=== PATIENT | female | born 1990 | race Caucasian/White ===

== ENCOUNTER 2018-10-07 23:59 | Emergency (ER) | payer OTHER ==
[2018-10-08 01:20] LABS: BILIRUBIN,URINE NEGATIVE (NEGATIVE); GLUCOSE, URINE (UA) NEGATIVE (NEGATIVE); KETONES,URINE (UA) NEGATIVE (NEGATIVE); LEUKOCYTE ESTERASE, URINE TRACE (NEGATIVE); NITRITE,URINE NEGATIVE (NEGATIVE); OCCULT BLOOD,URINE SMALL (NEGATIVE); PH,URINE 6.5 PH (5.0-7.5); PROTEIN,URINE NEGATIVE (NEGATIVE); UROBILINOGEN,URINE 0.2 (NORMAL) E.U./dL (NORMAL)
[2018-10-08 01:22] LABS: CLARITY,URINE HAZY (CLEAR); HCG UR QUAL POSITIVE
--- NOTE | 2018-10-08 01:23 | ED Physician Documentation ---
PD HPI ABD PAIN - Stated complaint Stated Complaint: PREG,CRAMPING AND SPOTTING - Chief complaint Chief Complaint: Abd Pain - History obtained from History obtained from: Patient - History of Present Illness Timing - onset: Enter time (20:00), Today Timing - details: Abrupt onset Pain level now: 8 Quality: Cramping Location: Suprapubic Radiation: Lower back, Left flank, Right flank Improved by: Other (nothing) Worsened by: Other (no exacerbating factors) Similar symptoms before: Has not had sx before Recently seen: Not recently seen - Additional information Additional information: patient is approximately 7 weeks , c/o sudden onset pelvic/abdominal cramping 8 PM tonight; pain radiates around both flanks to the back and associated with vaginal spotting. patient says she is rh negative and the father (who is in the room with patient) is rh positive (he confirms this) Review of Systems Constitutional: denies: Fever Cardiac: reports: Reviewed and negative Respiratory: reports: Reviewed and negative GI: reports: Abdominal Pain. denies: Nausea, Vomiting, Constipation, Diarrhea : reports: Vaginal bleeding (spotting), Now EGA (7 weeks). denies: Dysuria, Frequency Musculoskeletal: reports: Back pain PD PAST MEDICAL HISTORY - Past Medical History Past Medical History: No - Allergies Allergies/Adverse Reactions: Allergies Allergy/AdvReac Type Severity Reaction Status Date / Time cefaclor [From Ceclor] Allergy Unknown Verified 10/08/18 00:11 metoclopramide [From Reglan] Allergy Unknown Verified 10/08/18 00:11 amoxicillin [From Augmentin] AdvReac Hives Verified 10/08/18 00:11 clavulanic acid AdvReac Hives Verified 10/08/18 00:11 [From Augmentin] ketorolac [From Toradol] AdvReac Headache Verified 10/08/18 00:11 Sulfa (Sulfonamide AdvReac Nausea Verified 10/08/18 00:11 Antibiotics) tramadol AdvReac Headache Verified 10/08/18 00:11 - Social History Does the pt smoke?: No Smoking Status: Never smoker PD ED PE NORMAL - Vitals Vital signs reviewed: Yes - General General: Alert and oriented X 3, Well developed/nourished, Other (appears uncomfortable) - Cardiac Cardiac: RRR, No murmur - Respiratory Respiratory: No respiratory distress, Clear bilaterally - Abdomen Abdomen: Normal bowel sounds, Soft, Non tender, Non distended - Back Back: No CVA TTP - Derm Derm: Normal color, Warm and dry - Extremities Extremities: No edema Results - Vitals Vitals: Vital Signs - 24 hr 10/08/18 06:03 Heart Rate 98 Respiratory 18 Rate Blood Pressure 135/76 H O2 Saturation 100 Oxygen O2 Source Room air - Labs Labs: Laboratory Tests 10/08/18 10/08/18 10/08/18 01:02 02:10 02:10 WBC 13.3 H RBC 4.65 Hgb 14.0 Hct 44.0 MCV 94.7 MCH 30.2 MCHC 31.9 L RDW 15.8 H Plt Count 402 MPV 8.5 Neut # (Auto) 9.3 H Lymph # (Auto) 3.3 [place] # (Auto) 0.7 Eos # (Auto) 0.0 Baso # (Auto) 0.1 Absolute Nucleated RBC 0.01 Nucleated RBC % 0.0 Sodium 137 Potassium 3.5 Chloride 103 Carbon Dioxide 24 Anion Gap 10.0 BUN 9 Creatinine 0.6 Estimated GFR (MDRD) 120 Glucose 100 Calcium 8.8 Total Bilirubin 0.7 AST 32 ALT 34 Alkaline Phosphatase 72 Total Protein 7.5 Albumin 4.0 Globulin 3.5 Albumin/Globulin Ratio 1.1 Lipase 34 HCG, Quant Urine Color YELLOW Urine Clarity HAZY Urine pH 6.5 Ur Specific [place] 1.010 Urine Protein NEGATIVE Urine Glucose (UA) NEGATIVE Urine Ketones NEGATIVE Urine Occult Blood SMALL H Urine Nitrite NEGATIVE Urine Bilirubin NEGATIVE Urine Urobilinogen 0.2 (NORMAL) Ur Leukocyte Esterase TRACE H Urine RBC 0-5 Urine WBC 0-3 Ur Squamous Epith Cells MOD Squamous H Urine Bacteria Few Ur Microscopic Review INDICATED Urine Culture Comments NOT INDICATED Urine HCG, Qual POSITIVE 10/08/18 02:10 WBC RBC Hgb Hct MCV MCH MCHC RDW Plt Count MPV Neut # (Auto) Lymph # (Auto) [place] # (Auto) Eos # (Auto) Baso # (Auto) Absolute Nucleated RBC Nucleated RBC % Sodium Potassium Chloride Carbon Dioxide Anion Gap BUN Creatinine Estimated GFR (MDRD) Glucose Calcium Total Bilirubin AST ALT Alkaline Phosphatase Total Protein Albumin Globulin Albumin/Globulin Ratio Lipase HCG, Quant 97339.00 Urine Color Urine Clarity Urine pH Ur Specific [place] Urine Protein Urine Glucose (UA) Urine Ketones Urine Occult Blood Urine Nitrite Urine Bilirubin Urine Urobilinogen Ur Leukocyte Esterase Urine RBC Urine WBC Ur Squamous Epith Cells Urine Bacteria Ur Microscopic Review Urine Culture Comments Urine HCG, Qual - Rads (name of study) pelvic/TV US Radiology: Prelim report reviewed, See rad report PD MEDICAL DECISION MAKING - ED course Complexity details: reviewed results, re-evaluated patient, considered differential, d/w patient Departure - Departure Disposition: 01 Home, Self Care Clinical Impression: Threatened Condition: Good Instructions: ED Miscarriage Poss Follow-Up: Temitope Hopkins DO [Primary Care Provider] - Discharge Date/Time: 10/08/18 06:04
[2018-10-08 01:26] LABS: BACTERIA,URINE Few /HPF (None Seen); RBC,URINE 0-5 /HPF (0-5); SQUAMOUS EPITHELIAL CELL,UR MOD Squamous (<= Few)
[2018-10-08] MEDS ORDERED: RHO(D) IMMUNE GLOBULIN 300 MCG SYRINGE IM STA (01:43)
[2018-10-08] MEDS ORDERED: RHO(D) IMMUNE GLOBULIN 300 MCG SYRINGE ONE (01:59)
[2018-10-08 02:15] LABS: BASOPHILS # (AUTO) 0.1 10^3/uL (0.0-0.1); BASOPHILS % (AUTO) 0.9 %; EOSINOPHILS % (AUTO) 0.2 %; LYMPHOCYTES # (AUTO) 3.3 10^3/uL (1.5-3.5); LYMPHOCYTES % (AUTO) 24.5 %; MEAN CORPUSCULAR HEMOGLOBIN 30.2 pg (27.0-31.0); MEAN CORPUSCULAR HGB CONC 31.9 g/dL (32.0-36.0); MEAN CORPUSCULAR VOLUME 94.7 fL (81.0-99.0); MEAN PLATELET VOLUME 8.5 fL (7.9-10.8); MONOCYTES # (AUTO) 0.7 10^3/uL (0.0-1.0); MONOCYTES % (AUTO) 4.9 %; NEUTROPHILS # (AUTO) 9.3 10^3/uL (1.5-6.6); NEUTROPHILS % (AUTO) 69.5 %; PLT - PLATELET COUNT 402 10^3/uL (130-450); RED BLOOD COUNT 4.65 10^6/uL (4.20-5.40); RED CELL DISTRIBUTION WIDTH 15.8 % (12.0-15.0); WHITE BLOOD COUNT 13.3 x10^3/uL (4.8-10.8)
[2018-10-08 02:29] LABS: ALBUMIN/GLOBULIN RATIO 1.1 (1.0-2.2); BILIRUBIN,TOTAL 0.7 mg/dL (0.2-1.0); CALCIUM 8.8 mg/dL (8.5-10.3); CREATININE 0.6 mg/dL (0.4-1.0); TOTAL PROTEIN 7.5 g/dL (6.7-8.2)
--- NOTE | 2018-10-08 03:53 | Ultrasound Report ---
Reason: , spotting and cramping Procedure Date: 10/08/2018 Accession Number: [id number] / [id number] Procedure: US - OB First Trimester CPT Code: FULL RESULT: EXAM: FIRST TRIMESTER OBSTETRIC ULTRASOUND (Less than 11 weeks) EXAM DATE: 10/08/2018 03:20 AM. CLINICAL HISTORY: , spotting and cramping. COMPARISONS: None. TECHNIQUE: Transabdominal and transvaginal ultrasound examination with static image documentation. FINDINGS: LMP: 08/22/2018. Estimated gestational age: 6 weeks 5 days. Estimated due date: 05/29/2019. Gestational Sac: Single intrauterine. Normal configuration of the gestational sac. Mean gestational sac diameter: 9.8 mm = 5 weeks 0 days. Embryo: CRL (crown-rump length) 2.4 mm = 5 weeks 2 days. Cardiac activity: 139 bpm. Yolk sac: 3.1 mm. Amniotic fluid: Not accurately assessed at this gestational age. Early placenta: Not visible at this gestational age. Other: No perigestational fluid collection demonstrated. MATERNAL STRUCTURES: Uterus: Normal position and configuration. Cervix: Closed. Right Ovary/Adnexa: Normal appearance measuring 3.5 x 1.8 x 1.6 cm. Left Ovary/Adnexa: Physiologic appearance of the left ovary measuring 3.1 x 2.8 x 2.5 cm. There is a 1.8 cm corpus luteum cyst. Normal blood flow. Free Fluid: Small amount of left adnexal free fluid, within physiologic limits. Other: None. IMPRESSION: 1. Single live intrauterine gestation measuring 5 weeks 6 days with a due date of 06/04/2019. RADIA
[2018-10-08] MEDS ORDERED: HYDROcod/ACET 5/325 Prepack 4 PO STA (05:45)
[2018-10-08 06:03] VITALS: BP 135/76
== END 2018-10-08 06:04 | disposition home or self-care (01) ==
LOC: ED 23:59
DX: O20.0 Threatened abortion (principal); Z3A.01 Less than 8 weeks gestation of pregnancy
CPT/HCPCS: 36415; 76801; 76817; 80053; 81001; 81003; 81025; 83690; 84702; 85025; 87086; 96372; 99283

== ENCOUNTER 2018-10-29 08:00 | Outpatient (CLI) | payer OTHER ==
[2018-10-29 18:21] LABS: MUDS CUTOFF CONCENTRATIONS CUTOFF CONC BELOW:
[2018-10-29 18:56] LABS: AMPHETAMINE SCREEN,URINE NEGATIVE (NEGATIVE); BENZODIAZEPINES SCREEN, URINE NEGATIVE (NEGATIVE); COCAINE SCREEN URINE NEGATIVE (NEGATIVE); METHADONE SCREEN, URINE NEGATIVE (NEGATIVE); METHAMPHETAMINES SCREEN, URINE NEGATIVE (NEGATIVE); OPIATE SCREEN, URINE NEGATIVE (NEGATIVE); OXYCODONE SCREEN, URINE NEGATIVE (NEGATIVE); PROPOXYPHENE SCREEN, URINE NEGATIVE (NEGATIVE); TRICYCLIC ANTIDEPRESSANT,URINE NEGATIVE (NEGATIVE)
== END 2018-10-29 23:59 | disposition home or self-care (01) ==
LOC: LAB.R 08:00
PROVIDERS: ATTEND Obstetrics & Gynecology
DX: Z36.9 Encounter for antenatal screening, unspecified (principal)
CPT/HCPCS: 80306

== ENCOUNTER 2018-10-29 08:00 | Outpatient (CLI) | payer OTHER ==
[2018-10-29 18:52] LABS: BASOPHILS % (AUTO) 0.3 %; EOSINOPHILS % (AUTO) 0.3 %; HGB - HEMOGLOBIN 13.4 g/dL (12.0-16.0); LYMPHOCYTES # (AUTO) 4.4 10^3/uL (1.5-3.5); LYMPHOCYTES % (AUTO) 36.4 %; MEAN CORPUSCULAR HEMOGLOBIN 30.4 pg (27.0-31.0); MEAN CORPUSCULAR HGB CONC 32.2 g/dL (32.0-36.0); MEAN CORPUSCULAR VOLUME 94.4 fL (81.0-99.0); MEAN PLATELET VOLUME 9.4 fL (7.9-10.8); MONOCYTES # (AUTO) 0.9 10^3/uL (0.0-1.0); MONOCYTES % (AUTO) 7.1 %; NEUTROPHILS # (AUTO) 6.8 10^3/uL (1.5-6.6); NEUTROPHILS % (AUTO) 55.9 %; PLT - PLATELET COUNT 401 10^3/uL (130-450); RED BLOOD COUNT 4.42 10^6/uL (4.20-5.40); RED CELL DISTRIBUTION WIDTH 14.7 % (12.0-15.0); WHITE BLOOD COUNT 12.1 x10^3/uL (4.8-10.8)
[2018-10-29 19:26] LABS: BILIRUBIN,URINE NEGATIVE (NEGATIVE); GLUCOSE, URINE (UA) NEGATIVE (NEGATIVE); KETONES,URINE (UA) NEGATIVE (NEGATIVE); LEUKOCYTE ESTERASE, URINE NEGATIVE (NEGATIVE); NITRITE,URINE NEGATIVE (NEGATIVE); OCCULT BLOOD,URINE LARGE (NEGATIVE); PH,URINE 5.5 PH (5.0-7.5); PROTEIN,URINE TRACE mg/dL (NEGATIVE); UROBILINOGEN,URINE 0.2 (NORMAL) E.U./dL (NORMAL)
[2018-10-29 19:43] LABS: BACTERIA,URINE Few /HPF (None Seen); CLARITY,URINE CLEAR (CLEAR); RBC,URINE 0-5 /HPF (0-5); SQUAMOUS EPITHELIAL CELL,UR MANY Squamous (<= Few)
[2018-10-30 15:47] LABS: HEPATITIS B SURFACE ANTIGEN NON-REACTIVE (NON-REACTIVE)
[2018-10-30 16:01] LABS: HEPATITIS C ANTIBODY NON-REACTIVE (NON-REACTIVE)
[2018-10-30 16:25] LABS: HIV AG/AB 4TH GEN NON-REACTIVE (NON-REACTIVE)
== END 2018-10-29 23:59 | disposition home or self-care (01) ==
LOC: LAB.N 08:00
PROVIDERS: ATTEND Obstetrics & Gynecology
DX: Z36.9 Encounter for antenatal screening, unspecified (principal)
CPT/HCPCS: 36415; 80306; 81001; 81599; 85025; 86592; 86762; 86803; 86850; 86870; 86900; 86901; 87086; 87340; 87389

== ENCOUNTER 2018-12-11 11:46 | Outpatient (CLI) | payer OTHER | END 2018-12-11 11:47 | disposition home or self-care (01) | LOC: LAB 11:46 | PROVIDERS: ATTEND Obstetrics & Gynecology | DX: Z36.89 Encounter for other specified antenatal screening (principal); Z3A.13 13 weeks gestation of pregnancy | CPT/HCPCS: 36415; 81599; 82105; 82677; 82950; 84702; 86336 ==

== ENCOUNTER 2018-12-21 17:29 | Emergency (ER) | payer OTHER ==
[2018-12-21] MEDS ORDERED: SUMAtriptan 6 MG/0.5 ML VIAL SUBQ STA (18:07)
[2018-12-21] MEDS ORDERED: ONDANSETRON ODT 4 MG TABLET TL STA (18:07)
--- NOTE | 2018-12-21 18:07 | ED Physician Documentation ---
PD HPI HEADACHE - Stated complaint Stated Complaint: RANDALL/VOMITING 17 WEEKS PREG - Chief complaint Chief Complaint: Heent - History obtained from History obtained from: Patient (4 days of throbbing gradual onset headache similar to previous migraines. In the past she was on propranolol for this but started using marijuana for same and did not need the propranolol anymore so was not taking it currently. She is sound and light sensitive. She is nauseous. She is 17 weeks . 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 : None HEENT: None Psych: None Musculoskeletal: None Derm: None - Past Surgical History Past Surgical History: Yes General: Cholecystectomy, Appendectomy, Colonoscopy HEENT: Tonsil/Adenoidectomy - Allergies Allergies/Adverse Reactions: Allergies Allergy/AdvReac Type Severity Reaction Status Date / Time cefaclor [From Ceclor] Allergy Unknown Verified 12/21/18 17:37 metoclopramide [From Reglan] Allergy Unknown Verified 12/21/18 17:37 amoxicillin [From Augmentin] AdvReac Hives Verified 12/21/18 17:37 clavulanic acid AdvReac Hives Verified 12/21/18 17:37 [From Augmentin] ketorolac [From Toradol] AdvReac Headache Verified 12/21/18 17:37 Sulfa (Sulfonamide AdvReac Nausea Verified 12/21/18 17:37 Antibiotics) tramadol AdvReac Headache Verified 12/21/18 17:37 - Social History Does the pt smoke?: No Smoking Status: Never smoker Does the pt drink ETOH?: No Does the pt have substance abuse?: No - Immunizations Immunizations are current?: Yes - POLST Patient has POLST: No PD ED PE NORMAL - Vitals Vital signs reviewed: Yes - General General: Alert and oriented X 3 - HEENT HEENT: PERRL, EOMI - Neck Neck: Supple, no meningeal sign, No bony TTP - Neuro Neuro: Alert and oriented X 3, 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 As such I doubt subarachnoid hemorrhage. There are no infectious symptoms such as fever or stiff neck to make me suspect meningitis. No carbon monoxide exposure by history. She initially received Imitrex subcutaneously and Zofran. On recheck she had no help, and IV was placed and she was administered Reglan and Benadryl with excellent relief of her headache. Departure - Departure Disposition: 01 Home, Self Care Clinical Impression: Migraine Qualifiers: Migraine type: without aura Status migrainosus presence: with status migrainosus Intractability: not intractable Qualified Code(s): G43.001 - Migraine without aura, not intractable, with status migrainosus Condition: Good Record reviewed to determine appropriate education?: Yes Instructions: ED Headache Migraine Comments: Call your doctor to arrange a follow-up appointment, make the next available appointment. In the interim, return anytime if worse or if new symptoms develop.
[2018-12-21] MEDS ORDERED: PROCHLORPERAZINE 10 MG/2 ML VIAL IVP STA (18:52)
[2018-12-21] MEDS ORDERED: diphenhydrAMINE INJ 50 MG/ML VIAL IVP STA (18:52)
[2018-12-21 19:54] VITALS: BP 113/72
== END 2018-12-21 20:07 | disposition home or self-care (01) ==
LOC: ED 17:29
DX: O99.352 Diseases of the nervous system complicating pregnancy, second trimester (principal); G43.001 Migraine without aura, not intractable, with status migrainosus; Z3A.17 17 weeks gestation of pregnancy
CPT/HCPCS: 96372; 96374; 99283; J1200; Q0162

== ENCOUNTER 2018-12-29 08:00 | Outpatient (CLI) | payer OTHER ==
[2018-12-29 19:35] LABS: HB2 TOTAL 14.3 g/dL; HEMOGLOBIN A1C 0.52 g/dL; HEMOGLOBIN A1C % 5.5 % (4.6-6.2)
== END 2018-12-29 23:59 | disposition home or self-care (01) ==
LOC: LAB.N 08:00
PROVIDERS: ATTEND Obstetrics & Gynecology
DX: Z36.89 Encounter for other specified antenatal screening (principal); O99.810 Abnormal glucose complicating pregnancy; O09.92 Supervision of high risk pregnancy, unspecified, second trimester
CPT/HCPCS: 36415; 81220; 81243; 81329; 81599; 83021; 83036; 84443; 85014; 85018; 85041; 86787

== ENCOUNTER 2019-01-08 10:10 | Outpatient (CLI) | payer OTHER | END 2019-01-08 10:11 | disposition home or self-care (01) | LOC: NS 10:10 | PROVIDERS: ATTEND Obstetrics & Gynecology | DX: O99.810 Abnormal glucose complicating pregnancy (principal) | CPT/HCPCS: 97802 ==

== ENCOUNTER 2019-01-15 08:11 | Outpatient (CLI) | payer OTHER ==
--- NOTE | 2019-01-15 12:40 | Ultrasound Report ---
Reason: SCREENING Procedure Date: 01/15/2019 Accession Number: [id number] / [id number] Procedure: US - OB Detailed Eval CPT Code: FULL RESULT: EXAM: COMPLETE OBSTETRICAL ULTRASOUND EXAM DATE: 01/15/2019 09:59 AM. CLINICAL HISTORY: anatomic survey. COMPARISON: OB FIRST TRIMESTER 10/08/2018 2:34 AM. TECHNIQUE: Real-time sonographic evaluation of the fetus performed by the staff physical therapist. Multiple sales representative sales manager static images were saved for review. DATING: Established EGA 20 weeks 0 days with DONAVAN 06/04/2019 based on first ultrasound. EGA 19 weeks 6 days with DONAVAN 06/03/2019 based on the current ultrasound. GENERAL EVALUATION Howard . Cardiac activity: 140 bpm. movement: Visualized. Presentation: Breech. Placenta: Anterior position. No evidence for previa. Umbilical cord: 3 vessel cord. Central placental cord origin. Amniotic fluid: Subjectively normal. MVP 4 cm. BIOMETRY Bi-Parietal Diameter (BPD): 4.8 cm, 20 weeks 3 days Head Circumference (HC): 17.3 cm, 20 weeks 1 day Abdominal Circumference (AC): 14.4 cm, 19 weeks 5 days Femur Length (FL): 3.3 cm, 20 weeks 1 day Estimated Weight: 325 g, 45th percentile for 20 weeks 0 days. ANATOMY The heart, stomach, and bladder view demonstrating structural relationship is not adequately visualized. The left leg/foot relationship is not adequately visualized. The intracranial structures, profile, face/nose/lips, spine, 4 chamber heart and outflow tracts, stomach, abdominal wall and cord insertion, diaphragm, kidneys, bladder, and upper extremities as well as the right lower extremity and foot were visualized and demonstrate no abnormality. MATERNAL STRUCTURES Uterus: Unremarkable. Cervix: Long and closed. Transabdominal length 4.4 cm. Right ovary/adnexa: Unremarkable. Left ovary/adnexa: Unremarkable. Free fluid: None. IMPRESSION: 1. Howard live intrauterine with gestational age 20 weeks 0 days based on first ultrasound. 2. Estimated weight is within expected limits for assigned dating. 3. Incomplete anatomy survey. The heart/stomach/bladder relationship as well as the left leg/foot relationship are not adequately established. No anatomic abnormalities are detected at this time. RADIA
== END 2019-01-15 08:12 | disposition home or self-care (01) ==
LOC: DI 08:11
PROVIDERS: ATTEND Obstetrics & Gynecology
DX: Z36.87 Encounter for antenatal screening for uncertain dates (principal)
CPT/HCPCS: 76811

== ENCOUNTER 2019-01-22 18:54 | Outpatient (CLI) | payer OTHER ==
--- NOTE | 2019-01-25 09:13 | Ultrasound Report ---
Reason: SUPERVISION HIGH RISK , 2ND TRIM, PROTEIN Procedure Date: 01/22/2019 Accession Number: [id number] / [id number] Procedure: US - OB F/U or Repeat CPT Code: FULL RESULT: EXAM: FOLLOW-UP OBSTETRICAL ULTRASOUND EXAM DATE: 01/22/2019 07:30 PM. CLINICAL HISTORY: Supervision high risk , 2nd trimester, protein. Completion of anatomy survey. COMPARISON: OB DETAILED EVAL 01/15/2019 8:31 AM. TECHNIQUE: Real-time sonographic evaluation of the fetus performed by the dye house vat worker. Multiple account executive sales representative static images were saved for review. DATING: Established EGA 20 weeks 5 days with DONAVAN 06/04/2019 based on physician reported working due date. GENERAL EVALUATION Howard . Cardiac activity: 138 bpm. movement: Visualized. Presentation: Vertex. Placenta: Anterior position. Amniotic fluid: Normal. LIONEL 19.6 cm. MVP 4.6 cm. ANATOMY The bilateral lower extremity foot relationship is established and appears normal. Relationship of bladder, stomach and heart is established and appears normal. MATERNAL STRUCTURES The cervix is long and closed, 4.4 cm transabdominally. IMPRESSION: 1. Howard live intrauterine with gestational age 20 weeks 5 days based on working due date. 2. Normal completion of the anatomy survey as described above. RADIA
== END 2019-01-22 18:55 | disposition home or self-care (01) ==
LOC: DI 18:54
PROVIDERS: ATTEND Obstetrics & Gynecology
DX: O09.92 Supervision of high risk pregnancy, unspecified, second trimester (principal); O12.12 Gestational proteinuria, second trimester; Z14.8 Genetic carrier of other disease; O24.414 Gestational diabetes mellitus in pregnancy, insulin controlled; Z3A.20 20 weeks gestation of pregnancy
CPT/HCPCS: 76816

== ENCOUNTER 2019-01-26 08:00 | Outpatient (CLI) | payer OTHER ==
[2019-01-26 15:29] LABS: CREATININE,URINE 103.7 mg/dL
== END 2019-01-26 23:59 | disposition home or self-care (01) ==
LOC: LAB 08:00
PROVIDERS: ATTEND Obstetrics & Gynecology
DX: O24.912 Unspecified diabetes mellitus in pregnancy, second trimester (principal); O12.12 Gestational proteinuria, second trimester
CPT/HCPCS: 82570; 84156

== ENCOUNTER 2019-02-12 20:54 | Outpatient (CLI) | payer OTHER ==
[2019-02-12 21:47] LABS: BILIRUBIN,URINE NEGATIVE (NEGATIVE); GLUCOSE, URINE (UA) NEGATIVE (NEGATIVE); KETONES,URINE (UA) NEGATIVE (NEGATIVE); LEUKOCYTE ESTERASE, URINE NEGATIVE (NEGATIVE); NITRITE,URINE NEGATIVE (NEGATIVE); OCCULT BLOOD,URINE TRACE-INTA (NEGATIVE); PROTEIN,URINE NEGATIVE (NEGATIVE); UROBILINOGEN,URINE 0.2 (NORMAL) E.U./dL (NORMAL)
[2019-02-12 21:50] LABS: CLARITY,URINE CLEAR (CLEAR)
[2019-02-12 21:53] LABS: BACTERIA,URINE None Seen /HPF (None Seen); RBC,URINE 0-5 /HPF (0-5); SQUAMOUS EPITHELIAL CELL,UR FEW Squamous (<= Few)
[2019-02-12 21:55] VITALS: BP 99/57
--- NOTE | 2019-02-12 23:21 | Ultrasound Report ---
Reason: labor Procedure Date: 02/12/2019 Accession Number: [id number] / [id number] Procedure: US - OB Transvaginal CPT Code: FULL RESULT: EXAM: FOLLOW-UP OBSTETRICAL ULTRASOUND EXAM DATE: 02/12/2019 10:52 PM. CLINICAL HISTORY: labor. COMPARISON: None. TECHNIQUE: Real-time sonographic evaluation of the fetus performed by the automatic machines supervisor. Additional transvaginal imaging to more accurately evaluate cervical length/placental position/etc. Multiple customer contact representative static images were saved for review. DATING: Established EGA 24 weeks 0 days with DONAVAN 06/04/2019 based on established dates. GENERAL EVALUATION Howard . Cardiac activity: 152 bpm. movement: Visualized. Presentation: Anterior Placenta: Anterior position. No evidence for previa or abruption. MATERNAL STRUCTURES Cervical length is 3.8 cm, closed. IMPRESSION: 1. [place] live intrauterine in cephalic presentation. 2. Cervical length is 3.8 cm, closed. RADIA
--- NOTE | 2019-02-12 23:25 | PROVIDER PROGRESS NOTE ---
- HPI Chief Complaint: Labor Check (Charlotte is a 28 yo at 24w0d wth complicated by A2DM presents for labor check. She reports feeling abdominalain and pain through her back all day. No LOF or VB. + FM) Current : Vital Signs Temperature 98.8 F 02/12/19 21:54 Heart Rate 76 02/12/19 21:54 Respiratory Rate 14 02/12/19 21:54 Blood Pressure 99/57 L 02/12/19 21:54 Temperature 98.8 F 02/12/19 21:54 Heart Rate 76 02/12/19 21:54 Respiratory Rate 14 02/12/19 21:54 Blood Pressure 99/57 L 02/12/19 21:54 O2 Saturation - Procedures OB Procedure Performed: Other (NST and TVCL) Diagnosis/Indication for NST: labor NST Procedure: 145 md valdo 10x10 accels rare decels TOCO: quiet Appropriate for gestational age Service Date of procedure: 02/12/19 - Plan Plan: RULE OUT PTL: SVE closed/long/high per RN exam FFN negative TVCL 3.8 cm [place] Quiet UA wn FWB: AGA tracing Vaginitis panel pending Low concern for PTL DC to home with fu in clinic More than 60 minutes was spent with patient assessment
[2019-02-13 01:37] LABS: TRICHOMONAS VAGINALIS DNA NEGATIVE (NEGATIVE)
== END 2019-02-12 23:05 | disposition home or self-care (01) ==
LOC: WFO 20:54 → FBP 20:55 → WFO 23:05
PROVIDERS: ATTEND Obstetrics & Gynecology
DX: O99.89 Other specified diseases and conditions complicating pregnancy, childbirth and the puerperium (principal); R10.9 Unspecified abdominal pain; O24.415 Gestational diabetes mellitus in pregnancy, controlled by oral hypoglycemic drugs; Z3A.24 24 weeks gestation of pregnancy
CPT/HCPCS: 76817; 81001; 82731; 87086; 87491; 87591; 87661; 87797; 87801; 99214

== ENCOUNTER 2019-03-11 | Outpatient (CLI) | payer OTHER | END 2019-03-11 11:38 | disposition home or self-care (01) | DX: O24.912 Unspecified diabetes mellitus in pregnancy, second trimester (principal); Z36.89 Encounter for other specified antenatal screening | CPT/HCPCS: 36415; 82947; 83036; 84439; 84443; 85027; 86850 ==

== ENCOUNTER 2019-03-12 18:47 | Outpatient (CLI) | payer OTHER ==
--- NOTE | 2019-03-14 04:43 | Ultrasound Report ---
Reason: DM IN MOTHER, COMPLICATING , 2ND TRI Procedure Date: 03/12/2019 Accession Number: [id number] / [id number] Procedure: US - OB F/U or Repeat CPT Code: FULL RESULT: EXAM: FOLLOW-UP OBSTETRICAL ULTRASOUND EXAM DATE: 03/12/2019 07:01 PM. CLINICAL HISTORY: DM in mother, complicating , 2nd trimester. COMPARISON: OB TRANSVAGINAL 02/12/2019 10:28 PM. TECHNIQUE: Real-time sonographic evaluation of the fetus performed by the petroleum refining equipment operator. Additional transvaginal imaging to more accurately evaluate cervical length/placental position/etc. Multiple technical services representative static images were saved for review. DATING: Established EGA 28 weeks 0 days with DONAVAN 06/04/2019 based on LMP. EGA 28 weeks 0 days with DONAVAN 06/04/2019 based on first ultrasound. EGA 29 weeks 0 days with DONAVAN 05/28/2019 based on the current ultrasound. GENERAL EVALUATION Howard . Cardiac activity: 143 bpm. movement: Visualized. Presentation: Cephalic. Placenta: Anterior position. Amniotic fluid: Normal. LIONEL 15.4 cm. MVP 5.7 cm. BIOMETRY Bi-Parietal Diameter (BPD): 7.1 cm, 28 weeks 2 days Head Circumference (HC): 27.1 cm, 29 weeks 4 days Abdominal Circumference (AC): 24.7 cm, 28 weeks 6 days Femur Length (FL): 5.5 cm, 29 weeks 0 days Estimated Weight: 1317 g, 75.5 percentile for 28 weeks 3 days. ANATOMY: Detailed anatomy survey not performed. IMPRESSION: 1. [place] live intrauterine with gestational age 29 weeks 0 day based on current ultrasound. 2. Estimated weight is within expected limits for assigned dating. RADIA
== END 2019-03-12 18:48 | disposition home or self-care (01) ==
LOC: DI 18:47
PROVIDERS: ATTEND Obstetrics & Gynecology
DX: O24.912 Unspecified diabetes mellitus in pregnancy, second trimester (principal); Z3A.29 29 weeks gestation of pregnancy
CPT/HCPCS: 76816

== ENCOUNTER 2019-03-20 16:08 | Outpatient (CLI) | payer OTHER ==
[2019-03-20] MEDS ORDERED: RHO(D) IMMUNE GLOBULIN 300 MCG SYRINGE IM ONE (16:15)
[2019-03-20 16:37] VITALS: BP 111/66
--- NOTE | 2019-04-07 19:22 | PROVIDER PROGRESS NOTE ---
- HPI Chief Complaint: Other (Charlotte is a 28 yo at 24w0d [facility] complicated by A2DM and Rh negative status. Her 28 week labs returned with a negative antibody screen. She presents for Rhogam Injection. + FM. Denies LOF/VB/CTX) Current : Vital Signs Temperature 98.6 F 03/20/19 16:20 Heart Rate 73 03/20/19 16:20 Respiratory Rate 20 03/20/19 16:20 Blood Pressure 111/66 03/20/19 16:20 O2 Saturation 96 03/20/19 16:20 Temperature 98.6 F 03/20/19 16:20 Heart Rate 73 03/20/19 16:20 Respiratory Rate 20 03/20/19 16:20 Blood Pressure 111/66 03/20/19 16:20 O2 Saturation 96 03/20/19 16:20 - Procedures OB Procedure Performed: Other (Rhogam injection) Service Date of procedure: 03/20/19 - Plan Plan: Rhogam adminsitered without complication Continue with routine OB care DX: Rh negative; Rhogam injection
== END 2019-03-20 16:35 | disposition home or self-care (01) ==
LOC: WFO 16:08 → FBP 16:09 → WFO 16:35
PROVIDERS: ATTEND Obstetrics & Gynecology
DX: O26.893 Other specified pregnancy related conditions, third trimester (principal); Z67.91 Unspecified blood type, Rh negative; O24.419 Gestational diabetes mellitus in pregnancy, unspecified control; Z3A.28 28 weeks gestation of pregnancy
CPT/HCPCS: 96372

== ENCOUNTER 2019-03-25 15:49 | Outpatient (CLI) | payer OTHER | END 2019-03-25 23:59 | disposition home or self-care (01) | LOC: LAB.R 15:49 | PROVIDERS: ATTEND Obstetrics & Gynecology | DX: R30.0 Dysuria (principal) | CPT/HCPCS: 87086 ==

== ENCOUNTER 2019-04-02 08:00 | Outpatient (CLI) | payer OTHER | END 2019-04-02 23:59 | disposition home or self-care (01) | LOC: LAB.R 08:00 | PROVIDERS: ATTEND Obstetrics & Gynecology | DX: R19.7 Diarrhea, unspecified (principal) | CPT/HCPCS: 81599; 87493 ==

== ENCOUNTER 2019-04-02 22:23 | Emergency (ER) | payer OTHER ==
[2019-04-02] MEDS ORDERED: SODIUM CHLORIDE 0.9% 1,000 ML IV STA (23:08)
--- NOTE | 2019-04-02 23:08 | ED Physician Documentation ---
PD HPI NVD - Stated complaint Stated Complaint: NAUSEA,DIARRHEA - Chief complaint Chief Complaint: Abd Pain - History obtained from History obtained from: Patient - History of Present Illness Timing - onset: How many weeks ago (2) Timing - duration: Weeks Timing - details: Gradual onset, Waxing and waning Associated symptoms: Abdominal pain (epigastric). No: Fever Improved by: Other (nothing) Worsened by: Other Similar symptoms before: No diagnosis - Additonal information Additional information: 31 weeks . c/o 2 weeks of increasingly frequent diarrhea with epigastric cramping. diarrhea has become bloody x 1-2 days. nausea but no vomiting Review of Systems Constitutional: reports: Reviewed and negative Cardiac: reports: Reviewed and negative Respiratory: reports: Reviewed and negative GI: reports: Abdominal Pain, Nausea, Diarrhea. denies: Vomiting : reports: Now EGA (31 weeks). 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 : None HEENT: None Psych: None Musculoskeletal: None Derm: None - Past Surgical History Past Surgical History: Yes General: Cholecystectomy, Appendectomy, Colonoscopy HEENT: Tonsil/Adenoidectomy - Present Medications Home Medications: Ambulatory Orders Medication Instructions Recorded Confirmed Clindamycin HCl [Clindamycin 300MG 300 mg PO TID #20 capsule 03/06/19 CAP] Hydrocodone/Acetaminophen [[place] 1 each PO Q6H PRN #10 tablet 03/06/19 5-325 Tablet] Naproxen 500 mg PO BID #14 tablet 03/06/19 Sertraline [Zoloft] 25 mg PO DAILY 03/06/19 03/06/19 metFORMIN [Glucophage] 500 mg PO ONCE 03/06/19 03/06/19 - Allergies Allergies/Adverse Reactions: Allergies Allergy/AdvReac Type Severity Reaction Status Date / Time cefaclor [From Ceclor] Allergy Unknown Verified 03/06/19 16:37 metoclopramide [From Reglan] Allergy Unknown Verified 03/06/19 16:37 amoxicillin [From Augmentin] AdvReac Hives Verified 03/06/19 16:37 clavulanic acid AdvReac Hives Verified 03/06/19 16:37 [From Augmentin] ketorolac [From Toradol] AdvReac Headache Verified 03/06/19 16:37 Sulfa (Sulfonamide AdvReac Nausea Verified 03/06/19 16:37 Antibiotics) tramadol AdvReac Headache Verified 03/06/19 16:37 - Social History Does the pt smoke?: No Smoking Status: Never smoker Does the pt drink ETOH?: No Does the pt have substance abuse?: No - Immunizations Immunizations are current?: Yes - POLST Patient has POLST: No PD ED PE NORMAL - Vitals Vital signs reviewed: Yes - General General: Alert and oriented X 3, No acute distress, Well developed/nourished - HEENT HEENT: Other (pasty/tacky mucous membranes) - Cardiac Cardiac: RRR, No murmur - Respiratory Respiratory: No respiratory distress, Clear bilaterally - Abdomen Abdomen: Normal bowel sounds, Soft, Non tender, Non distended - Back Back: No CVA TTP - Derm Derm: Normal color, Warm and dry Results - Vitals Vitals: Vital Signs - 24 hr 04/03/19 04/03/19 04/03/19 00:54 02:00 04:00 Temperature 36.4 C L Heart Rate 74 82 62 Respiratory 18 18 16 Rate Blood Pressure 114/69 127/78 142/83 H O2 Saturation 97 98 98 04/03/19 05:59 Temperature 98.4 C H Heart Rate 86 Respiratory 18 Rate Blood Pressure 146/72 H O2 Saturation 98 Oxygen O2 Source Room air - Labs Labs: Microbiology 04/02/19 23:15 Campylobacter Antigen Assay - Final Stool Laboratory Tests 04/02/19 04/02/19 23:21 23:21 WBC 11.0 H RBC 4.02 L Hgb 12.2 Hct 37.3 MCV 92.8 MCH 30.3 MCHC 32.7 RDW 14.7 Plt Count 374 MPV 10.6 Neut # (Auto) 7.0 H Lymph # (Auto) 3.1 [place] # (Auto) 0.8 Eos # (Auto) 0.0 Baso # (Auto) 0.0 Absolute Nucleated RBC 0.00 Nucleated RBC % 0.0 Sodium 137 Potassium 3.1 L Chloride 103 Carbon Dioxide 22 Anion Gap 12.0 BUN 7 Creatinine 0.7 Estimated GFR (MDRD) 100 Glucose 122 H Calcium 8.9 Total Bilirubin < 0.2 L AST 40 ALT 45 Alkaline Phosphatase 102 Total Protein 6.7 Albumin 3.0 L Globulin 3.7 Albumin/Globulin Ratio 0.8 L Lipase 31 PD MEDICAL DECISION MAKING - ED course Complexity details: reviewed results, re-evaluated patient, considered differential, d/w patient ED course: increasingly frequent diarrhea x 2 weeks, becoming bloody x 1-2 days. 31 weeks . she is (+) for campylobacter and given IV fluids and zithromax. d/w Dr. Davidson, requests hold in ED until he can evaluate in ED in AM. patient held in ED several hours until Dr. Davidson came in and evaluated patient, recommended discharge home from ED Departure - Departure Disposition: 01 Home, Self Care Clinical Impression: Campylobacter diarrhea, Condition: Good Instructions: Campylobacter Infec Follow-Up: Joaquin Davidson MD [Provider Admit Priv/Credential] - Discharge Date/Time: 04/03/19 05:59
[2019-04-02 23:33] LABS: BASOPHILS % (AUTO) 0.3 %; EOSINOPHILS % (AUTO) 0.2 %; HGB - HEMOGLOBIN 12.2 g/dL (12.0-16.0); LYMPHOCYTES # (AUTO) 3.1 10^3/uL (1.5-3.5); LYMPHOCYTES % (AUTO) 27.7 %; MEAN CORPUSCULAR HEMOGLOBIN 30.3 pg (27.0-31.0); MEAN CORPUSCULAR HGB CONC 32.7 g/dL (32.0-36.0); MEAN CORPUSCULAR VOLUME 92.8 fL (81.0-99.0); MEAN PLATELET VOLUME 10.6 fL (7.9-10.8); MONOCYTES # (AUTO) 0.8 10^3/uL (0.0-1.0); MONOCYTES % (AUTO) 7.5 %; NEUTROPHILS % (AUTO) 63.8 %; PLT - PLATELET COUNT 374 10^3/uL (130-450); RED BLOOD COUNT 4.02 10^6/uL (4.20-5.40); RED CELL DISTRIBUTION WIDTH 14.7 % (12.0-15.0)
[2019-04-02 23:42] LABS: ALBUMIN/GLOBULIN RATIO 0.8 (1.0-2.2); ALKALINE PHOSPHATASE 102 IU/L (42-121); ALT ALANINE AMINOTRANSFERASE 45 IU/L (10-60); AST ASPARTATE AMINOTRANSFERASE 40 IU/L (10-42); BILIRUBIN,TOTAL < 0.2 mg/dL (0.2-1.0); BUN - BLOOD UREA NITROGEN 7 mg/dL (6-20); CALCIUM 8.9 mg/dL (8.5-10.3); CARBON DIOXIDE - CO2 22 mmol/L (21-32); CHLORIDE 103 mmol/L (101-111); CREATININE 0.7 mg/dL (0.4-1.0); GFR - MDRD 100 (>89); GLUCOSE 122 mg/dL (70-100); LIPASE 31 U/L (22-51); SODIUM 137 mmol/L (135-145); TOTAL PROTEIN 6.7 g/dL (6.7-8.2)
[2019-04-03] MEDS ORDERED: AZITHROMYCIN INJ 500 MG in SODIUM CHLORIDE 0.9% 250 ML IV STA (01:13)
[2019-04-03] MEDS ORDERED: ACETAMINOPHEN 325 MG TABLET PO STA (01:32)
[2019-04-03] MEDS ORDERED: SODIUM CHLORIDE 0.9% 1,000 ML IV STA (01:32)
[2019-04-03 05:59] VITALS: BP 146/72
--- NOTE | 2019-04-03 07:20 | PREOP HISTORY & PHYSICAL ---
DATE OF SERVICE: 04/03/2019 Physician: Joaquin Davidson MD IDENTIFICATION: Patient is a 28-year-old G1, P0 female, who is 31 weeks with an EDC of 04 June. CHIEF COMPLAINT: Diarrhea. HISTORY OF PRESENT ILLNESS: Patient states for the last 2 weeks, she has had difficulty with diarrhea. She is seen in the clinic, at which time she was questioned regarding any blood in the stool and she did not note at this time. She states, however, over the last 2 days, she developed blood in her stool. She has been tried on BRAT diet without success. She is positive on Campylobacter test here in the ED. She has a history of having Campylobacter in the past. She does not recall what medication she took for this. The patient gives a history of having been taking clindamycin about a month ago. PAST MEDICAL HISTORY: Positive for asthma, migraines, as well as Campylobacter. PAST SURGICAL HISTORY: Appendectomy, cholecystectomy, as well as colonoscopy. HABITS: Patient denies use of alcohol, tobacco, street or addictive drugs. ALLERGIES NUMEROUS. SHE IS ALLERGIC TO: 1. CECLOR. 2. METOCLOPRAMIDE. 3. AMOXICILLIN. 4. CLAVULANIC ACID. 5. KETOROLAC. 6. SULFA. 7. TRAMADOL. PHYSICAL EXAMINATION VITAL SIGNS: Temperature 37.1, pulse 84, respirations 16, blood pressure 116/80. She has positive heart tones. HEENT: Pupils are equal, round. Extraocular muscles intact. Thyroid is not palpably enlarged. Mouth is clear. HEART: Regular rate and rhythm without murmurs. LUNGS: Lung rowan are clear without rales or wheezes. ABDOMEN: Uterus is palpated roughly 32 cm. There is some generalized tenderness in the abdomen but nothing localizing. She has no calf or CVA tenderness. LABORATORY/DATA: Her electrolytes shows potassium of 3.1, glucose was 122, otherwise. Her albumin is 3.0. Her albumin and protein ratio is 0.8. CBC shows a white count of 10.0, hemoglobin was 12.2, hematocrit 37.3, platelets are 374. Patient had Campylobacter test, which was positive. IMPRESSION 1. A 28-year-old G1, P0, female at 31 weeks' gestation. 2. Campylobacter. 3. Mild hyponatremia. PLAN: Patient has already received 2 liters of fluid. She has received azithromycin 500 mg IV. We will discharge patient to home on azithromycin 500 mg daily; will take this until her diarrhea clears or for at least 3 days. We will have patient follow up in the clinic. TD: 04/03/2019 05:50 MTDD
== END 2019-04-03 05:59 | disposition home or self-care (01) ==
LOC: ED 22:23
DX: O98.813 Other maternal infectious and parasitic diseases complicating pregnancy, third trimester (principal); A04.5 Campylobacter enteritis; O99.283 Endocrine, nutritional and metabolic diseases complicating pregnancy, third trimester; E87.1 Hypo-osmolality and hyponatremia; Z3A.31 31 weeks gestation of pregnancy
CPT/HCPCS: 36415; 80053; 81599; 83690; 85025; 87045; 87046; 87493; 96361; 96365; 99284; A9270

== ENCOUNTER 2019-04-16 19:13 | Outpatient (CLI) | payer OTHER ==
--- NOTE | 2019-04-20 14:07 | Ultrasound Report ---
Reason: DM IN MOTHER COMPLICATING Procedure Date: 04/16/2019 Accession Number: [id number] / [id number] Procedure: US - OB F/U or Repeat CPT Code: FULL RESULT: EXAM: FOLLOW-UP OBSTETRICAL ULTRASOUND EXAM DATE: 04/16/2019 07:30 PM. CLINICAL HISTORY: DM IN MOTHER COMPLICATING . COMPARISON: OB F/U OR REPEAT 01/22/2019 7:00 PM. TECHNIQUE: Real-time sonographic evaluation of the fetus performed by the commercial loan officer. Multiple solar sales representative static images were saved for review. DATING: Established EGA 33 weeks 0 days with DONAVAN 06/04/2019 based on first ultrasound. EGA 33 weeks 1 day with DONAVAN 06/03/2019 based on the prior ultrasound of 01/15/2019. EGA 34 weeks 2 days with DONAVAN 05/26/2019 based on the current ultrasound. GENERAL EVALUATION Howard . Cardiac activity: 137 bpm. movement: Present Presentation: Cephalic. Placenta: Anterior position. Amniotic fluid: Normal. LIONEL 25.2 cm. MVP 7 cm. BIOMETRY Bi-Parietal Diameter (BPD): 8.6 cm, 34 weeks 6 days Head Circumference (HC): 31.5 cm, 35 weeks 2 days Abdominal Circumference (AC): 30.8 cm, 34 weeks 5 days Femur Length (FL): 6.2 cm, 32 weeks 0 days Estimated Weight: 2330 g. ANATOMY Not assessed today. MATERNAL STRUCTURES Not assessed today. IMPRESSION: 1. Howard intrauterine with gestational age 33 weeks 0 days based on 06/04/2019 assigned dating. 2. Estimated weight is within expected limits for assigned dating. 3. Borderline polyhydramnios. RADIA
== END 2019-04-16 19:14 | disposition home or self-care (01) ==
LOC: DI 19:13
PROVIDERS: ATTEND Obstetrics & Gynecology
DX: O24.912 Unspecified diabetes mellitus in pregnancy, second trimester (principal); O09.93 Supervision of high risk pregnancy, unspecified, third trimester; Z3A.33 33 weeks gestation of pregnancy
CPT/HCPCS: 76816

== ENCOUNTER 2019-04-22 12:58 | Outpatient (CLI) | payer OTHER ==
[2019-04-22 13:17] VITALS: BP 120/76
--- NOTE | 2019-04-22 16:15 | PROCEDURE REPORT ---
- HPI Diagnosis/Indication for NST: Gestational Diabetes Current EDU 06/04/19 Gestation 33 Weeks and 6 Days 1 Para 0 Vital Signs Temperature 37.1 C 04/22/19 13:16 Heart Rate 79 04/22/19 13:16 Respiratory Rate 18 04/22/19 13:16 Blood Pressure 120/76 04/22/19 13:16 O2 Saturation 94 04/22/19 13:16 Temperature 37.1 C 04/22/19 13:16 Heart Rate 79 04/22/19 13:16 Respiratory Rate 18 04/22/19 13:16 Blood Pressure 120/76 04/22/19 13:16 O2 Saturation 94 04/22/19 13:16 - NST Procedure NST Procedure Start Date 04/22/19 Start Time 13:10 Stop Time 13:43 Vibroacoustic Stimulation Used No Patient States Movement Yes - Results and Plan Findings/Impression: There is a reactive nonstress test. This was read on 04/22/2019 Plan: Impression: intrauterine at 33 weeks and 6 days gestation Gestational diabetes The patient was discharged home. She will continue with her serial nonstress t ests. She will continue with her regular office appointments.
== END 2019-04-22 13:55 | disposition home or self-care (01) ==
LOC: WFO 12:58 → FBP 12:59 → WFO 13:55
PROVIDERS: ATTEND Obstetrics & Gynecology
DX: O24.419 Gestational diabetes mellitus in pregnancy, unspecified control (principal); Z3A.33 33 weeks gestation of pregnancy
CPT/HCPCS: 59025

== ENCOUNTER 2019-04-26 13:54 | Outpatient (CLI) | payer OTHER ==
--- NOTE | 2019-04-26 15:33 | PROCEDURE REPORT ---
- HPI Diagnosis/Indication for NST: Gestational Diabetes - NST Procedure NST Procedure Start Time 13:10 Stop Time 13:43 - Results and Plan Findings/Impression: The patient's NST is completely reactive today. This test was read on 04/26/2019. Plan: Impression: Gestational diabetes Intrauterine at 34+ weeks gestation Plan: The patient is being discharged home. She will follow-up in the office for her regular office visit. She will continue with her weekly nonstress test.
[2019-04-26 16:19] VITALS: BP 120/78
== END 2019-04-26 15:30 | disposition home or self-care (01) ==
LOC: WFO 13:54 → FBP 13:57 → WFO 15:30
PROVIDERS: ATTEND Obstetrics & Gynecology
DX: O24.419 Gestational diabetes mellitus in pregnancy, unspecified control (principal)
CPT/HCPCS: 59025; 99211

== ENCOUNTER 2019-04-29 12:51 | Outpatient (CLI) | payer OTHER ==
[2019-04-29 13:32] VITALS: BP 112/85
--- NOTE | 2019-04-29 18:47 | PROCEDURE REPORT ---
- HPI Diagnosis/Indication for NST: Gestational Diabetes Current EDU 06/04/19 Gestation 34 Weeks and 6 Days 1 Para 0 Vital Signs Temperature 98.8 F 04/29/19 13:27 Heart Rate 88 04/29/19 13:27 Respiratory Rate 18 04/29/19 13:27 Blood Pressure 112/85 H 04/29/19 13:27 O2 Saturation 99 04/29/19 13:27 Temperature 98.8 F 04/29/19 13:27 Heart Rate 88 04/29/19 13:27 Respiratory Rate 18 04/29/19 13:27 Blood Pressure 112/85 H 04/29/19 13:27 O2 Saturation 99 04/29/19 13:27 - NST Procedure NST Procedure Start Date 04/29/19 Start Time 13:00 Stop Time 13:30 Vibroacoustic Stimulation Used No Patient States Movement Yes EFM 145 mod valdo 15x15 accels no decels TOCO: quiet - Results and Plan Findings/Impression: Patient is a 28-year-old G1, P0 at 34 weeks 6 days EGA here for NST for GDM Category 1 tracing; reactive and reassuring NST -Continue with twice-weekly NST and weekly LIONEL -Continue with every 4 week growth ultrasounds -Anticipate induction of labor at 39 weeks NST performed 04/29/2019 NST read 04/29/2019
== END 2019-04-29 13:40 | disposition home or self-care (01) ==
LOC: WFO 12:51 → FBP 12:53 → WFO 13:40
PROVIDERS: ATTEND Obstetrics & Gynecology
DX: O24.419 Gestational diabetes mellitus in pregnancy, unspecified control (principal); O40.3XX0 Polyhydramnios, third trimester, not applicable or unspecified; Z3A.34 34 weeks gestation of pregnancy
CPT/HCPCS: 59025; 76815

== ENCOUNTER 2019-04-29 14:06 | Outpatient (CLI) | payer OTHER ==
--- NOTE | 2019-04-29 16:15 | Ultrasound Report ---
Reason: DM IN MOTHER Procedure Date: 04/29/2019 Accession Number: [id number] / [id number] Procedure: US - OB Limited CPT Code: FULL RESULT: EXAM: LIMITED OBSTETRICAL ULTRASOUND EXAM DATE: 04/29/2019 02:51 PM. CLINICAL HISTORY: Diabetes IN MOTHER. COMPARISON: OB LIMITED 03/12/2019 7:01 PM OB F/U OR REPEAT 04/16/2019 7:30 PM. TECHNIQUE: Real-time sonographic evaluation of the fetus performed by the hospitality host. Multiple food service sales representatives static images were saved for review. DATING: Established EGA 34 weeks 6 days with DONAVAN 06/04/2019. GENERAL EVALUATION Howard . Cardiac activity: 133 bpm. movement: Present Presentation: Cephalic. Placenta: Anterior position. Amniotic fluid: Polyhydramnios. LIONEL 26.1 cm. MVP 9.1 cm. ANATOMY Not assessed today MATERNAL STRUCTURES Cervix closed 3 cm. IMPRESSION: 1. Howard intrauterine with gestational age 34 weeks 6 days based on established DONAVAN. 2. LIONEL 26.1 cm, MVP 9.1 cm, polyhydramnios. RADIA
== END 2019-04-29 14:07 | disposition home or self-care (01) ==
LOC: DI 14:06
PROVIDERS: ATTEND Obstetrics & Gynecology
DX: O24.419 Gestational diabetes mellitus in pregnancy, unspecified control (principal); Z3A.34 34 weeks gestation of pregnancy; O40.3XX0 Polyhydramnios, third trimester, not applicable or unspecified
CPT/HCPCS: 76815

== ENCOUNTER 2019-04-30 03:09 | Outpatient (CLI) | payer OTHER ==
[2019-04-30 03:54] VITALS: BP 108/72
--- NOTE | 2019-05-06 12:24 | PROCEDURE REPORT ---
- HPI Diagnosis/Indication for NST: Gestational Diabetes Current EDU 06/04/19 Gestation 35 Weeks and 0 Days 1 Para 0 Vital Signs Temperature 37.3 C 04/30/19 03:30 Heart Rate 84 04/30/19 03:30 Respiratory Rate 18 04/30/19 03:30 Blood Pressure 108/72 04/30/19 03:30 O2 Saturation 97 04/30/19 03:30 Temperature 37.3 C 04/30/19 03:30 Heart Rate 84 04/30/19 03:30 Respiratory Rate 18 04/30/19 03:30 Blood Pressure 108/72 04/30/19 03:30 O2 Saturation 97 04/30/19 03:30 - NST Procedure NST Procedure Start Time 13:00 Stop Time 13:30 - Results and Plan Findings/Impression: reactive NST. done for GDM. continue with twice weekly NST.
== END 2019-04-30 04:30 | disposition home or self-care (01) ==
LOC: WFO 03:09 → FBP 03:12 → WFO 04:30
PROVIDERS: ATTEND Obstetrics & Gynecology
DX: O24.419 Gestational diabetes mellitus in pregnancy, unspecified control (principal); Z3A.35 35 weeks gestation of pregnancy
CPT/HCPCS: 99212

== ENCOUNTER 2019-04-30 04:30 | Emergency (ER) | payer OTHER ==
--- NOTE | 2019-04-30 04:37 | ED Physician Documentation ---
History of Present Illness - Stated complaint Stated Complaint: BILATERAL LEG DISCOLORATION - History obtained from History obtained from: Patient - History of Present Illness Timing: Other (intermittent x 1-2 weeks) Improved by: nothing Worsened by: no apparent causative nor exacerbating factors - Additonal information Additional information: patient is approximately 35 weeks , cleared by olive grader prior to being sent to ED for evaluation. Patient c/o BLE blue discoloration, episodically x 2 weeks. She says she was evaluated for this at [place] ED approximately 2 weeks ago, but testing was unremarkable and did not reveal or suggest etiology. No new medications Review of Systems Constitutional: denies: Fever, Chills, Sweats Cardiac: denies: Chest pain / pressure Respiratory: denies: Dyspnea, Cough GI: denies: Abdominal Pain Skin: reports: Other (blue discoloration BLE) Musculoskeletal: reports: Extremity swelling (mild BLE). denies: Extremity pain, Joint pain Neurologic: denies: Focal weakness, Numbness PD PAST MEDICAL HISTORY - Past Medical History Cardiovascular: None Respiratory: Asthma Neuro: Headaches, Migraines Endocrine/Autoimmune: None GI: None TEMPERATURE LOGGING OPERATOR: None : None HEENT: None Psych: None Musculoskeletal: None Derm: None - Past Surgical History Past Surgical History: Yes General: Cholecystectomy, Appendectomy, Colonoscopy HEENT: Tonsil/Adenoidectomy - Present Medications Home Medications: Ambulatory Orders Medication Instructions Recorded Confirmed Sertraline [Zoloft] 50 mg PO DAILY 03/06/19 04/30/19 metFORMIN [Glucophage] 500 mg PO ONCE 03/06/19 04/30/19 Albuterol Sulfate [Albuterol 2 puffs IH Q4HR PRN 04/30/19 04/30/19 Sulfate Hfa] Ferrous Sulfate 1 tab PO DAILY 04/30/19 04/30/19 Levothyroxine Sodium 1 tab PO DAILY 04/30/19 04/30/19 Prochlorperazine [Compazine] 10 mg PO Q6H PRN 04/30/19 04/30/19 - Allergies Allergies/Adverse Reactions: Allergies Allergy/AdvReac Type Severity Reaction Status Date / Time cefaclor [From Ceclor] Allergy Unknown Verified 04/30/19 04:54 metoclopramide [From Reglan] Allergy Unknown Verified 04/30/19 04:54 amoxicillin [From Augmentin] AdvReac Hives Verified 04/30/19 04:54 clavulanic acid AdvReac Hives Verified 04/30/19 04:54 [From Augmentin] ketorolac [From Toradol] AdvReac Headache Verified 04/30/19 04:54 Sulfa (Sulfonamide AdvReac Nausea Verified 04/30/19 04:54 Antibiotics) tramadol AdvReac Headache Verified 04/30/19 04:54 - Social History Does the pt smoke?: No Smoking Status: Never smoker Does the pt drink ETOH?: No Does the pt have substance abuse?: No - Immunizations Immunizations are current?: Yes - POLST Patient has POLST: No PD ED PE NORMAL - Vitals Vital signs reviewed: Yes - General General: Alert and oriented X 3, No acute distress, Well developed/nourished - HEENT HEENT: Moist mucous membranes - Cardiac Cardiac: RRR, No murmur - Respiratory Respiratory: No respiratory distress, Clear bilaterally - Extremities Extremities: Other (there is faint blue tint BLE, anterior surfaces only, predominantly on knees and immediately surrounding anterior surfaces cranially and caudally (distal thigh, proximal pre-tibial). ) Results - Vitals Vitals: Oxygen O2 Source Room air PD MEDICAL DECISION MAKING - ED course Complexity details: considered differential, d/w patient ED course: Blue discoloration readily wipes off onto alcohol pad. This was done several times using different/new alcohol pads to ensure it was indeed coming off of the skin and onto the alcohol pad. This is c/w material that is on the skin (such as dye from clothing) and thus no emergent testing performed at this time Departure - Departure Disposition: 01 Home, Self Care Clinical Impression: Qualifiers: Weeks of gestation: 35 weeks Qualified Code(s): Z3A.35 - 35 weeks gestation of Condition: Good Instructions: ED Preg Established Normal Sxs Follow-Up: Mag Asencio PA [Primary Care Provider] - Discharge Date/Time: 04/30/19 05:24
[2019-04-30 05:14] VITALS: BP 116/71
== END 2019-04-30 05:24 | disposition home or self-care (01) ==
LOC: ED 04:30
DX: Z03.79 Encounter for other suspected maternal and fetal conditions ruled out (principal); O24.419 Gestational diabetes mellitus in pregnancy, unspecified control; Z3A.35 35 weeks gestation of pregnancy
CPT/HCPCS: 99212; 99282

== ENCOUNTER 2019-05-04 10:25 | Outpatient (CLI) | payer OTHER ==
[2019-05-04 10:57] VITALS: BP 107/75
--- NOTE | 2019-05-05 12:36 | PROCEDURE REPORT ---
- HPI Diagnosis/Indication for NST: Gestational Diabetes Current EDU 06/04/19 Gestation 35 Weeks and 4 Days 1 Para 0 Vital Signs Temperature 36.8 C 05/04/19 10:45 Heart Rate 76 05/04/19 10:45 Respiratory Rate 15 05/04/19 10:45 Blood Pressure 107/75 05/04/19 10:45 O2 Saturation 96 05/04/19 10:45 Temperature 36.8 C 05/04/19 10:45 Heart Rate 76 05/04/19 10:45 Respiratory Rate 15 05/04/19 10:45 Blood Pressure 107/75 05/04/19 10:45 O2 Saturation 96 05/04/19 10:45 - NST Procedure NST Procedure Start Date 05/04/19 Start Time 10:40 Stop Time 11:20 Vibroacoustic Stimulation Used No Patient States Movement Yes reactive - Results and Plan Findings/Impression: reactive NST repeat one week
== END 2019-05-04 11:20 | disposition home or self-care (01) ==
LOC: WFO 10:25 → FBP 10:28 → WFO 11:20
PROVIDERS: ATTEND Obstetrics & Gynecology
DX: O24.419 Gestational diabetes mellitus in pregnancy, unspecified control (principal); Z3A.35 35 weeks gestation of pregnancy
CPT/HCPCS: 59025

== ENCOUNTER 2019-05-07 10:28 | Outpatient (CLI) | payer OTHER ==
[2019-05-07 10:51] VITALS: BP 116/79
--- NOTE | 2019-05-07 17:35 | PROCEDURE REPORT ---
- HPI Diagnosis/Indication for NST: Gestational Diabetes Current EDU 06/04/19 Gestation 36 Weeks and 0 Days 1 Para 0 Vital Signs Temperature 36.9 C 05/07/19 10:50 Heart Rate 78 05/07/19 10:50 Respiratory Rate 18 05/07/19 10:50 Blood Pressure 116/79 05/07/19 10:50 O2 Saturation 98 05/07/19 10:50 Temperature 36.9 C 05/07/19 10:50 Heart Rate 78 05/07/19 10:50 Respiratory Rate 18 05/07/19 10:50 Blood Pressure 116/79 05/07/19 10:50 O2 Saturation 98 05/07/19 10:50 - NST Procedure NST Procedure Start Date 05/07/19 Start Time 10:45 Stop Time 11:31 Vibroacoustic Stimulation Used No Patient States Movement Yes - Results and Plan Findings/Impression: The NST was reactive. This test was read on 05/07/2019 Impression: Intrauterine at 36 weeks gestation Gestational diabetes mellitus Plan: The patient is going to be discharged home. She will follow-up in 1 week for her next NST.
== END 2019-05-07 11:40 | disposition home or self-care (01) ==
LOC: WFO 10:28 → FBP 10:35 → WFO 11:40
PROVIDERS: ATTEND Obstetrics & Gynecology
DX: O24.419 Gestational diabetes mellitus in pregnancy, unspecified control (principal); Z3A.36 36 weeks gestation of pregnancy
CPT/HCPCS: 59025

== ENCOUNTER 2019-05-11 08:00 | Outpatient (CLI) | payer OTHER | END 2019-05-11 23:59 | disposition home or self-care (01) | LOC: LAB.R 08:00 | PROVIDERS: ATTEND Obstetrics & Gynecology | DX: O09.90 Supervision of high risk pregnancy, unspecified, unspecified trimester (principal) | CPT/HCPCS: 87797 ==

== ENCOUNTER 2019-05-11 10:26 | Outpatient (CLI) | payer OTHER ==
[2019-05-11 11:00] VITALS: BP 115/81
--- NOTE | 2019-05-11 14:48 | PROCEDURE REPORT ---
- HPI Diagnosis/Indication for NST: Gestational Diabetes Current EDU 06/04/19 Gestation 36 Weeks and 4 Days 1 Para 0 Vital Signs Temperature 36.9 C 05/11/19 10:55 Heart Rate 83 05/11/19 10:55 Respiratory Rate 16 05/11/19 10:55 Blood Pressure 115/81 H 05/11/19 10:55 Temperature 36.9 C 05/11/19 10:55 Heart Rate 83 05/11/19 10:55 Respiratory Rate 16 05/11/19 10:55 Blood Pressure 115/81 H 05/11/19 10:55 O2 Saturation - NST Procedure NST Procedure Start Date 05/11/19 Start Time 10:40 Stop Time 11:05 Vibroacoustic Stimulation Used No Patient States Movement Yes - Results and Plan Findings/Impression: The NST was reactive. The strip was read on 05/11/2019. Plan: The patient will be allowed to discharge to be discharged home. As long she does well she will return in 1 week for other NST. She is to be seen in the office today.
== END 2019-05-11 11:10 | disposition home or self-care (01) ==
LOC: WFO 10:26 → FBP 10:29 → WFO 11:10
PROVIDERS: ATTEND Obstetrics & Gynecology
DX: O09.90 Supervision of high risk pregnancy, unspecified, unspecified trimester (principal); O24.419 Gestational diabetes mellitus in pregnancy, unspecified control; Z3A.36 36 weeks gestation of pregnancy
CPT/HCPCS: 59025; 87797

== ENCOUNTER 2019-05-13 11:26 | Outpatient (CLI) | payer OTHER ==
--- NOTE | 2019-05-13 14:32 | Ultrasound Report ---
Reason: DIABETES MELLITUS IN MOTHER COMPLICATING Procedure Date: 05/13/2019 Accession Number: [id number] / [id number] Procedure: US - OB Limited CPT Code: FULL RESULT: EXAM: LIMITED OBSTETRICAL ULTRASOUND EXAM DATE: 05/13/2019 12:29 PM. CLINICAL HISTORY: Diabetes mellitus in mother complicating . COMPARISON: OB LIMITED 04/29/2019 2:22 PM and 05/09/2019. TECHNIQUE: Real-time sonographic evaluation of the fetus performed by the test consultant. Multiple sales account representative static images were saved for review. Transabdominal imaging only. DATING: Established EGA 36 weeks 6 days with DONAVAN 06/04/2019. GENERAL EVALUATION Howard . Cardiac activity: 139 bpm. movement: Visualized. Presentation: Cephalic. Placenta: Anterior position. Amniotic fluid: Normal. LIONEL 27.0 cm. MVP 7.6 cm. ANATOMY Limited examination. MATERNAL STRUCTURES Cervix closed. Approximate cervical canal length 3.7 cm. IMPRESSION: 1. Howard live intrauterine with gestational age 35 weeks 6 days based on established DONAVAN. 2. No abnormality on limited evaluation. RADIA
== END 2019-05-13 11:27 | disposition home or self-care (01) ==
LOC: DI 11:26
PROVIDERS: ATTEND Obstetrics & Gynecology
DX: O24.913 Unspecified diabetes mellitus in pregnancy, third trimester (principal); Z3A.35 35 weeks gestation of pregnancy
CPT/HCPCS: 76815

== ENCOUNTER 2019-05-14 10:24 | Outpatient (CLI) | payer OTHER ==
[2019-05-14 10:53] VITALS: BP 117/72
--- NOTE | 2019-05-31 20:56 | PROCEDURE REPORT ---
- HPI Diagnosis/Indication for NST: Polyhydramnios Current EDU 06/04/19 Gestation 37 Weeks and 0 Days 1 Para 0 Vital Signs Temperature 99.1 F 05/14/19 10:51 Heart Rate 88 05/14/19 10:51 Respiratory Rate 18 05/14/19 10:51 Blood Pressure 117/72 05/14/19 10:51 O2 Saturation 99 05/14/19 10:51 Temperature 99.1 F 05/14/19 10:51 Heart Rate 88 05/14/19 10:51 Respiratory Rate 18 05/14/19 10:51 Blood Pressure 117/72 05/14/19 10:51 O2 Saturation 99 05/14/19 10:51 - NST Procedure NST Procedure Start Date 05/14/19 Start Time 10:38 Stop Time 11:12 Vibroacoustic Stimulation Used No Patient States Movement Yes EFM 135 mod valdo 15x15 accels no decels TOCO: irritable Cat I tracing - Results and Plan Findings/Impression: Cat I tracing Cont with routine OB care including twice weekly NST, weekly LIONEL, Q4 week growth us Discharged to home Warning signs reviewed Plan: DOS 05/14/19 DX: gestational diabetes and polyhydramnios
== END 2019-05-14 11:18 | disposition home or self-care (01) ==
LOC: WFO 10:24 → FBP 10:31 → WFO 11:18
PROVIDERS: ATTEND Obstetrics & Gynecology
DX: O24.419 Gestational diabetes mellitus in pregnancy, unspecified control (principal); O40.3XX0 Polyhydramnios, third trimester, not applicable or unspecified; Z3A.37 37 weeks gestation of pregnancy
CPT/HCPCS: 59025

== ENCOUNTER 2019-05-18 11:40 | Outpatient (CLI) | payer OTHER ==
[2019-05-18 12:02] VITALS: BP 106/59
--- NOTE | 2019-05-20 10:05 | PROCEDURE REPORT ---
- HPI Diagnosis/Indication for NST: Gestational Diabetes Current EDU 06/04/19 Gestation 37 Weeks and 4 Days 1 Para 0 Vital Signs Temperature 36.9 C 05/18/19 11:58 Heart Rate 80 05/18/19 11:58 Respiratory Rate 16 05/18/19 11:58 Blood Pressure 106/59 L 05/18/19 11:58 O2 Saturation 98 05/18/19 11:58 Temperature 36.9 C 05/18/19 11:58 Heart Rate 80 05/18/19 11:58 Respiratory Rate 16 05/18/19 11:58 Blood Pressure 106/59 L 05/18/19 11:58 O2 Saturation 98 05/18/19 11:58 - NST Procedure NST Procedure Start Date 05/18/19 Start Time 11:55 Stop Time 12:40 Vibroacoustic Stimulation Used Yes Patient States Movement Yes - Results and Plan Findings/Impression: The NST is reactive.This was read on 05/18/2019. Plan: Gestational diabetes diet controlled Plan: The patient is going to be discharged home. She will follow-up with her next serial NST.She will also follow-up with her regular office appointment.
== END 2019-05-18 12:40 | disposition home or self-care (01) ==
LOC: WFO 11:40 → FBP 11:45 → WFO 12:40
PROVIDERS: ATTEND Obstetrics & Gynecology
DX: O24.410 Gestational diabetes mellitus in pregnancy, diet controlled (principal); Z3A.37 37 weeks gestation of pregnancy
CPT/HCPCS: 59025

== ENCOUNTER 2019-05-20 11:29 | Outpatient (CLI) | payer OTHER ==
--- NOTE | 2019-05-24 12:48 | Ultrasound Report ---
Reason: DIABETES MELLITUS IN MOTHER COMPLICATING Procedure Date: 05/20/2019 Accession Number: [id number] / [id number] Procedure: US - OB Limited CPT Code: FULL RESULT: EXAM: LIMITED OBSTETRICAL ULTRASOUND EXAM DATE: 05/20/2019 12:08 PM. CLINICAL HISTORY: Diabetes mellitus in mother complicating . COMPARISON: OB LIMITED 05/13/2019 12:05 PM. TECHNIQUE: Real-time sonographic evaluation of the fetus performed by the main galley scullion. Multiple patient access representative static images were saved for review. Additional transvaginal imaging to more accurately evaluate cervical length/placental position/etc. DATING: Established EGA 37 weeks 6 days with DONAVAN 06/04/2019. GENERAL EVALUATION Howard . Cardiac activity: 139 bpm. movement: Visualized. Presentation: Cephalic. Placenta: No previa or abruption. Anterior right position. Amniotic fluid: Normal. LIONEL 19.9 cm. MVP 9.9 cm. ANATOMY Normal limited anatomy. MATERNAL STRUCTURES Cervix not seen. IMPRESSION: 1. Howard live intrauterine with gestational age 37 weeks 6 days based on established DONAVAN. 2. Amniotic fluid index of 19.9 cm. MVP of 9.9 cm. 3. No acute abnormality on this limited ultrasound. RADIA
== END 2019-05-20 11:30 | disposition home or self-care (01) ==
LOC: DI 11:29
PROVIDERS: ATTEND Obstetrics & Gynecology
DX: O24.913 Unspecified diabetes mellitus in pregnancy, third trimester (principal); Z3A.37 37 weeks gestation of pregnancy
CPT/HCPCS: 76815

== ENCOUNTER 2019-05-21 10:20 | Outpatient (CLI) | payer OTHER ==
[2019-05-21 10:41] VITALS: BP 121/87
--- NOTE | 2019-05-21 11:34 | PROCEDURE REPORT ---
- HPI Diagnosis/Indication for NST: Other (Ageing placenta) Current EDU 06/04/19 Gestation 38 Weeks and 0 Days 1 Para 0 Vital Signs Temperature 36.9 C 05/21/19 10:39 Heart Rate 94 05/21/19 10:39 Respiratory Rate 17 05/21/19 10:39 Blood Pressure 121/87 H 05/21/19 10:39 O2 Saturation 98 05/21/19 10:39 Temperature 36.9 C 05/21/19 10:39 Heart Rate 94 05/21/19 10:39 Respiratory Rate 17 05/21/19 10:39 Blood Pressure 121/87 H 05/21/19 10:39 O2 Saturation 98 05/21/19 10:39 - NST Procedure NST Procedure Start Date 05/21/19 Start Time 10:30 Stop Time 11:05 Vibroacoustic Stimulation Used No Patient States Movement Yes reactive NST - Results and Plan Findings/Impression: 38 week gestation reactive NST.
== END 2019-05-21 11:15 | disposition home or self-care (01) ==
LOC: WFO 10:20 → FBP 10:24 → WFO 11:15
PROVIDERS: ATTEND Obstetrics & Gynecology
DX: O43.893 Other placental disorders, third trimester (principal); Z3A.38 38 weeks gestation of pregnancy
CPT/HCPCS: 59025

== ENCOUNTER 2019-05-25 10:22 | Outpatient (CLI) | payer OTHER ==
[2019-05-25 10:52] VITALS: BP 109/77
--- NOTE | 2019-05-25 15:48 | PROCEDURE REPORT ---
- HPI Diagnosis/Indication for NST: Gestational Diabetes Current EDU 06/04/19 Gestation 38 Weeks and 4 Days 1 Para 0 Vital Signs Temperature 36.8 C 05/25/19 10:45 Heart Rate 80 05/25/19 10:45 Blood Pressure 109/77 05/25/19 10:45 O2 Saturation 97 05/25/19 10:45 Temperature 36.8 C 05/25/19 10:45 Heart Rate 80 05/25/19 10:45 Respiratory Rate Blood Pressure 109/77 05/25/19 10:45 O2 Saturation 97 05/25/19 10:45 - NST Procedure NST Procedure Start Date 05/25/19 Start Time 10:40 Stop Time 11:05 Vibroacoustic Stimulation Used No Patient States Movement Yes - Results and Plan Findings/Impression: There is a reactive NST noted. The strip was read on 05/25/2019 Impression: Intrauterine at 38 weeks 4 days gestation Gestational diabetes mellitus Plan: The patient is going to be discharged home. She will follow-up with her regular OB appointment.She will continue her serial NSTs.
== END 2019-05-25 11:10 | disposition home or self-care (01) ==
LOC: WFO 10:22 → FBP 10:28 → WFO 11:10
PROVIDERS: ATTEND Obstetrics & Gynecology
DX: O24.419 Gestational diabetes mellitus in pregnancy, unspecified control (principal); Z3A.38 38 weeks gestation of pregnancy
CPT/HCPCS: 59025

== ENCOUNTER 2019-05-27 11:23 | Outpatient (CLI) | payer OTHER ==
--- NOTE | 2019-05-28 16:07 | Ultrasound Report ---
Reason: DIABETES MELLITUS IN MOTHER COMPLICATING Procedure Date: 05/27/2019 Accession Number: [id number] / [id number] Procedure: US - OB Limited CPT Code: FULL RESULT: EXAM: LIMITED OBSTETRICAL ULTRASOUND EXAM DATE: 05/27/2019 12:30 PM. CLINICAL HISTORY: DIABETES MELLITUS IN MOTHER, COMPLICATING . COMPARISON: OB LIMITED 05/20/2019 11:44 AM. TECHNIQUE: Real-time sonographic evaluation of the fetus performed by the quarry plant crusher operator. Multiple field marketing representative static images were saved for review. DATING: Established EGA 38 weeks 6 days with DONAVAN 06/04/2019. GENERAL EVALUATION Howard . Cardiac activity: 142 bpm. movement: Visualized. Presentation: Cephalic. Placenta: Anterior position. Amniotic fluid: Increased. LIONEL 29.2 cm. MVP 8.3 cm. MATERNAL STRUCTURES Closed cervix 3.4 cm long on transabdominal imaging. IMPRESSION: 1. Howard live cephalic with polyhydramnios, LIONEL 29.2 cm. RADIA
== END 2019-05-27 11:24 | disposition home or self-care (01) ==
LOC: DI 11:23
PROVIDERS: ATTEND Obstetrics & Gynecology
DX: O24.912 Unspecified diabetes mellitus in pregnancy, second trimester (principal); O40.3XX0 Polyhydramnios, third trimester, not applicable or unspecified; Z3A.38 38 weeks gestation of pregnancy
CPT/HCPCS: 76815

== ENCOUNTER 2019-05-28 10:19 | Outpatient (CLI) | payer OTHER ==
[2019-05-28 10:37] VITALS: BP 107/63
--- NOTE | 2019-05-28 14:04 | PROCEDURE REPORT ---
- HPI Diagnosis/Indication for NST: Gestational Diabetes Current EDU 06/04/19 Gestation 39 Weeks and 0 Days 1 Para 0 Vital Signs Temperature 36.9 C 05/28/19 10:36 Heart Rate 97 05/28/19 10:36 Respiratory Rate 16 05/28/19 10:36 Blood Pressure 107/63 05/28/19 10:36 O2 Saturation 97 05/28/19 10:36 Temperature 36.9 C 05/28/19 10:36 Heart Rate 97 05/28/19 10:36 Respiratory Rate 16 05/28/19 10:36 Blood Pressure 107/63 05/28/19 10:36 O2 Saturation 97 05/28/19 10:36 - NST Procedure NST Procedure Start Date 05/28/19 Start Time 10:31 Stop Time 11:06 Vibroacoustic Stimulation Used No Patient States Movement Yes - Results and Plan Findings/Impression: The NST was reactive. This was read on 05/28/2019. Impression: Intrauterine at 39 weeks gestation complicated by gestational diabetes Plan: The patient is being discharged home. She will follow-up with her regular office visit and continued testing
== END 2019-05-28 11:15 | disposition home or self-care (01) ==
LOC: WFO 10:19 → FBP 10:25 → WFO 11:15
PROVIDERS: ATTEND Obstetrics & Gynecology
DX: O24.419 Gestational diabetes mellitus in pregnancy, unspecified control (principal); Z3A.39 39 weeks gestation of pregnancy
CPT/HCPCS: 59025

== ENCOUNTER 2019-05-28 20:33 | Inpatient (IN) | payer OTHER ==
[2019-05-28] MEDS ORDERED: ONDANSETRON 4 MG/2 ML VIAL IVP PRN (20:45)
[2019-05-28] MEDS ORDERED: SODIUM CHLORIDE FLUSH 0.9% 10 ML SYRINGE IVP PRN (20:45)
[2019-05-28] MEDS ORDERED: fentaNYL 100 MCG/2 ML VIAL IVP PRN (22:14)
--- NOTE | 2019-05-28 22:41 | HISTORY & PHYSICAL EXAMINATION ---
Admit History - Visit Reason Visit Reason: Other (Induction of labor) - Smoking Status: Never smoker - Mother's Labs Mother's Blood Type: positive: AB Mother's RH: positive: Negative GBS: positive: Group B Step Negative Rubella Status: positive: Equivocal - Other Maternal History Other Maternal History: Patient presents per Dr. Rodgers for induction of labor due to gestational diabetes mellitus and borderline polyhydramnios. The patient is a well-developed, well-nourished, 28-year-old white female who is a 1 para 0.She has an DONAVAN of 06/04/2019 making her approximately 39 weeks gestation today.Her course which has been followed by Dr. Rodgers is remarkable for gestational diabetes and borderline polyhydramnios.Her most recent ultrasound on 05/20 revealed an LIONEL however which was in the normal range at 19.9. It had been as high as 27.The patient has been on metformin 500 mg but has been in poor compliance with keeping track of her blood sugars. She has had serial nonstress tests biweekly all of which have been within normal limits. The patient's blood type is AB- and she did have RhoGam at 28 weeks. She is GBS negative and rubella equivocal. The patient has been on Zoloft throughout her as well as levothyroxine. She is hypothyroid. Meds/Allgy - Home Medications Home Medications: Ambulatory Orders Medication Instructions Recorded Confirmed Sertraline [Zoloft] 50 mg PO DAILY 03/06/19 04/30/19 metFORMIN [Glucophage] 500 mg PO ONCE 03/06/19 04/30/19 Albuterol Sulfate [Albuterol 2 puffs IH Q4HR PRN 04/30/19 04/30/19 Sulfate Hfa] Ferrous Sulfate 1 tab PO DAILY 04/30/19 04/30/19 Levothyroxine Sodium 1 tab PO DAILY 04/30/19 04/30/19 Prochlorperazine [Compazine] 10 mg PO Q6H PRN 04/30/19 04/30/19 - Allergies Allergies/Adverse Reactions: Allergies Allergy/AdvReac Type Severity Reaction Status Date / Time cefaclor [From Ceclor] Allergy Unknown Verified 04/30/19 04:54 metoclopramide [From Reglan] Allergy Unknown Verified 04/30/19 04:54 amoxicillin [From Augmentin] AdvReac Hives Verified 04/30/19 04:54 clavulanic acid AdvReac Hives Verified 04/30/19 04:54 [From Augmentin] ketorolac [From Toradol] AdvReac Headache Verified 04/30/19 04:54 Sulfa (Sulfonamide AdvReac Nausea Verified 04/30/19 04:54 Antibiotics) tramadol AdvReac Headache Verified 04/30/19 04:54 Review of Systems - Constitutional Constitutional: denies: Fatigue, Fever, Chills, Malaise, Weakness - Eyes Eyes: denies: Pain, Irritation, Amaurosis, Blurred vision, Spots in vision, Field loss, Vision loss - Ears, Nose & Throat Ears, Nose & Throat: denies: Ear pain, Hearing loss, Hearing aids, Tinnitus, Nasal pain, Nasal discharge, Nasal obstruction, Dentures, Sore throat, Hoarseness, Mouth lesions, Dental decay - Cardiovascular Cariovascular: denies: Irregular heart rate, Palpitations, Chest pain, Edema, Lightheadedness, Syncope - Respiratory Respiratory: denies: Cough, Sputum production, Wheezing, Snoring, Hemoptysis, Orthopnea, SOB at rest, SOB with exertion - Gastrointestinal Gastrointestinal: denies: Abdominal pain, Abdominal distention, Diarrhea, Change in bowel habits, Rectal bleeding, Nausea, Vomiting - Genitourinary Genitourinary: denies: Dysuria, Urgency, Hematuria, Incontinence, Flank pain - Musculoskeletal Musculoskeletal: denies: Muscle pain, Muscle aches, Stiffness, Muscle weakness, Gout, Joint pain - Integumentary Integumentary: denies: Rash, Pruritis, Lesions, Dryness, Lumps - Neurological Neurological: denies: General weakness, Focal weakness, Headache, Dizziness - Psychiatric Psychiatric: reports: Depression, Anxiety. denies: Suicidal, Delusions, Hallucinations, Homicidal - Endocrine Endocrine: denies: Polyuria, Polydypsia, Polyphagia, Intolerance to cold, Intolerance to heat - Hematologic/Lymphatic Hematologic/Lymphatic: denies: Anemia, Bruising, Petechiae, Blood clots, Lymphadenopathy, Bleeding tendencies Physical - Abdominal Exam Vital Signs: Temp Pulse Resp BP Pulse Ox 37.3 C 93 17 113/80 97 05/28/19 21:00 05/28/19 21:00 05/28/19 21:00 05/28/19 21:00 05/28/19 21:00 - Monitoring Strip Review: positive: Category I - Presentation Presentation: positive: Vertex - Vaginal Exam Membranes: positive: Membranes intact Dilation (in cm): 3 Effacement (%): 50 Station: positive: -2 Cervical Position: positive: Midposition - Other Notes Labor Progress Note/Additional Text: Heart: Heart has a regular rate and rhythm without murmur Lungs: Lungs are clear to auscultation bilaterally without wheezes, rales or rhonchi Abdomen: The abdomen is soft, pliable and nontender. The uterus is soft and nontender. It is gravid. Plan for Labor - Plan For Labor Plan for Labor: Impression:Intrauterine at 39 weeks gestation Gestational diabetes mellitus Hypothyroidism Depression Borderline polyhydramnios Plan: The patient is going to be admitted for induction of labor with misoprostol.We are going to obtain an ultrasound to check on estimated body weight and fluid.We will continue with close observation.
[2019-05-28] MEDS ORDERED: metFORMIN 500 MG TABLET PO STA (22:50)
[2019-05-29] MEDS: miSOPROStol 100 MCG TABLET BC SCH ×2 (00:05→04:18)
[2019-05-29 00:20] LABS: BASOPHILS % (AUTO) 0.2 %; EOSINOPHILS % (AUTO) 0.1 %; HGB - HEMOGLOBIN 12.3 g/dL (12.0-16.0); LYMPHOCYTES # (AUTO) 3.5 10^3/uL (1.5-3.5); LYMPHOCYTES % (AUTO) 24.3 %; MEAN CORPUSCULAR HEMOGLOBIN 30.4 pg (27.0-31.0); MEAN CORPUSCULAR HGB CONC 32.8 g/dL (32.0-36.0); MEAN CORPUSCULAR VOLUME 92.6 fL (81.0-99.0); MEAN PLATELET VOLUME 12.8 fL (7.9-10.8); MONOCYTES # (AUTO) 0.8 10^3/uL (0.0-1.0); MONOCYTES % (AUTO) 5.5 %; NEUTROPHILS % (AUTO) 69.5 %; PLT - PLATELET COUNT 307 10^3/uL (130-450); RED BLOOD COUNT 4.05 10^6/uL (4.20-5.40); RED CELL DISTRIBUTION WIDTH 15.9 % (12.0-15.0); WHITE BLOOD COUNT 14.5 x10^3/uL (4.8-10.8)
--- NOTE | 2019-05-29 00:23 | Ultrasound Report ---
Reason: Gestational Diabetes and Polyhyrdramnios Procedure Date: 05/28/2019 Accession Number: [id number] / [id number] Procedure: US - OB F/U or Repeat CPT Code: FULL RESULT: EXAM: FOLLOW-UP OBSTETRICAL ULTRASOUND EXAM DATE: 05/28/2019 11:23 PM. CLINICAL HISTORY: Gestational diabetes and polyhydramnios. COMPARISON: OB LIMITED 05/27/2019 12:33 PM. TECHNIQUE: Real-time sonographic evaluation of the fetus performed by the radiology technologist. Multiple used equipment sales representative static images were saved for review. FINDINGS: DATING: Established EGA 39 weeks 0 days with DONAVAN 06/04/2019 based on provided clinical dates. GENERAL EVALUATION Howard . Cardiac activity: 141 bpm. movement: Visualized. Presentation: Cephalic. Placenta: Anterior position. Amniotic fluid: Mild polyhydramnios. LIONEL 23.3 cm. MVP 8.4 cm. BIOMETRY Bi-Parietal Diameter (BPD): 9.6 cm, 39 weeks/1 day Head Circumference (HC): 35 cm, w40 eeks/5 days Abdominal Circumference (AC): 37.1 cm, 41 weeks/0 days Femur Length (FL): 7.3 cm, 37 weeks/3 days Estimated Weight: 3971 g, 89th percentile. IMPRESSION: 1. Howard live cephalic intrauterine with gestational age 39 weeks 0 days based on given clinical dates. Today's exam is concordant. 2. Estimated weight is 3971 g, 89th percentile. 3. Mild polyhydramnios with an amniotic fluid index of 23 cm. ROSANNA
[2019-05-29] MEDS: ACETAMINOPHEN 325 MG TABLET PO PRN ×2 (02:46→08:36)
[2019-05-29] MEDS: LEVOTHYROXINE 25 MCG TABLET PO SCH (07:06)
[2019-05-29] MEDS: SERTRALINE 50 MG TABLET PO SCH (08:36)
[2019-05-29] MEDS: LACTATED RINGERS 1,000 ML IV SCH ×2 (08:55→14:33)
--- NOTE | 2019-05-29 09:21 | PROVIDER PROGRESS NOTE ---
Labor Progress Note - Labor Progress Note Labor Progress Note/Additional Text: The patient cervix is 3 cm 75% -2. Her contractions are occurring about every 2 to 3 minutes and are moderate in intensity. The patient states that they have become stronger since approximately 600 hours this morning. The plan is to rupture her membranes. She does not wish to do this till she has an epidural. We are therefore waiting for anesthesia to come into place the epidural. Ultrasound reveals the fetus to weight 3971 g or 8.736 pounds.LIONEL is a 23. The fetus is at the 89th percentile.
[2019-05-29] MEDS ORDERED: ROPIVACAINE 0.2% 200 MG/100 ML BAG EP ONE (09:24)
[2019-05-29] MEDS ORDERED: fentaNYL 100 MCG/2 ML VIAL ONE (09:25)
[2019-05-29] MEDS ORDERED: ROPIVACAINE 0.2% PF 20 ML AMPULE ONE (09:25)
[2019-05-29] MEDS ORDERED: ROPIVACAINE 0.2% 200 MG/100 ML BAG EP PRN (10:00)
[2019-05-29] MEDS ORDERED: diphenhydrAMINE INJ 50 MG/ML VIAL IVP PRN (10:00)
[2019-05-29] MEDS ORDERED: ePHEDrine 50 MG/ML VIAL IVP PRN (10:00)
[2019-05-29] MEDS ORDERED: ONDANSETRON 4 MG/2 ML VIAL IVP PRN (10:00)
[2019-05-29] MEDS ORDERED: NALBUPHINE 10 MG/ML AMP IVP PRN (10:00)
[2019-05-29] MEDS ORDERED: LACTATED RINGERS 500 ML IV ONE (10:00)
[2019-05-29] MEDS ORDERED: NALOXONE 0.4 MG/ML VIAL IVP PRN (10:00)
--- NOTE | 2019-05-29 10:00 | ANESTHESIA ---
Pre-Anesthesia VS, & Labs - Diagnosis IUP, term labor induction - Procedure Labor epidural Vital Signs: Temp Pulse Resp BP Pulse Ox 37.3 C 93 17 113/80 97 05/28/19 21:00 05/28/19 21:00 05/28/19 21:00 05/28/19 21:00 05/28/19 21:00 Height 5 ft 5 in Weight (kg) 117.48 kg Body Mass Index 42.4 - NPO Last Food Intake: mangos @0800 - Is Patient ?: Yes - Lab Results Current Lab Results: Laboratory Tests 05/29/19 00:30: TSH 3.03 05/28/19 23:15: WBC 14.5 H, RBC 4.05 L, Hgb 12.3, Hct 37.5, MCV 92.6, MCH 30.4, MCHC 32.8, RDW 15.9 H, Plt Count 307, MPV 12.8 H, Neut # (Auto) 10.0 H, Lymph # (Auto) 3.5, Eddy # (Auto) 0.8, Eos # (Auto) 0.0, Baso # (Auto) 0.0, Absolute Nuc leated RBC 0.00, Nucleated RBC % 0.0 Fish Bones: 05/28/19 23:15 Home Medications and Allergies Active Medications Acetaminophen (Tylenol) 650 mg PO Q6H PRN PRN Reason: Pain or Fever Last Admin: 05/29/19 08:36 Dose: 650 mg Fentanyl (Fentanyl) 50 mcg IVP Q1H PRN PRN Reason: PAIN Lactated Ringer's (Lr) 1,000 mls @ 100 mls/hr IV .Q10H [facility] Levothyroxine Sodium (Synthroid) 25 mcg PO QDAC [facility] Last Admin: 05/29/19 07:06 Dose: 25 mcg Misoprostol (Cytotec) 50 mcg BC Q4HR [facility] Last Admin: 05/29/19 04:18 Dose: 50 mcg Ondansetron HCl (Zofran Inj) 4 mg IVP Q4HR PRN PRN Reason: Nausea / Vomiting Sertraline HCl (Zoloft) 50 mg PO DAILY [facility] Last Admin: 05/29/19 08:36 Dose: 50 mg Sodium Chloride (Normal Saline Flush 0.9%) 10 ml IVP PRN PRN PRN Reason: NEEDED PER PROVIDER ORDERS Last Admin: 05/28/19 23:27 Dose: 10 ml Sertraline [Zoloft] 50 mg PO DAILY 03/06/19 metFORMIN [Glucophage] 500 mg PO ONCE 03/06/19 Albuterol Sulfate [Albuterol Sulfate Hfa] 2 puffs IH Q4HR PRN 04/30/19 Ferrous Sulfate 1 tab PO DAILY 04/30/19 Levothyroxine Sodium 1 tab PO DAILY 04/30/19 Prochlorperazine [Compazine] 10 mg PO Q6H PRN 04/30/19 Allergies/Adverse Reactions: Allergies Allergy/AdvReac Type Severity Reaction Status Date / Time cefaclor [From Ceclor] Allergy Unknown Verified 04/30/19 04:54 metoclopramide [From Reglan] Allergy Unknown Verified 04/30/19 04:54 amoxicillin [From Augmentin] AdvReac Hives Verified 04/30/19 04:54 clavulanic acid AdvReac Hives Verified 04/30/19 04:54 [From Augmentin] ketorolac [From Toradol] AdvReac Headache Verified 04/30/19 04:54 Sulfa (Sulfonamide AdvReac Nausea Verified 04/30/19 04:54 Antibiotics) tramadol AdvReac Headache Verified 04/30/19 04:54 Anes History & Medical History - Anesthetic History Anesthesia Complications: reports: No previous complications Family history of Anesthesia Complications: Denies Family history of Malignant Hyperthermia: Denies - Medical History Cardiovascular: reports: None Pulmonary: reports: Asthma Gastrointestinal: reports: None Urinary: reports: None Neuro: reports: Headaches, Migraines Musculoskeletal: reports: None Endocrine/Autoimmune: reports: None Blood Disorders: reports: None Skin: reports: None Smoking Status: Former smoker - Surgical History General: Cholecystectomy, Appendectomy, Colonoscopy Eyes Ears Nose Throat (EENT): Tonsil/Adenoidectomy Exam General: Alert, Oriented x3, Cooperative Dental: WNL Mouth Openin Fingerbreadth Neck Mobility: Normal Mallampati classification: II Thyromental Distance: 4-6 cm Respiratory: No respiratory distress Cardiovascular: Regular rate Neurological: Normal speech Mental/Cognitive Status: Alert/Oriented X3, Normal for patient Plan Anesthesia Type: Epidural Consent for Procedure(s) Verified and Reviewed: Yes Code Status: Attempt Resuscitation ASA classification: 2-Mild systemic disease Is this case an emergency?: No
--- NOTE | 2019-05-29 10:08 | PROVIDER PROGRESS NOTE ---
Labor Progress Note - Labor Progress Note Labor Progress Note/Additional Text: The patient cervix is now 4 cm / 75%/-2.An amniotomy was performed with a large amount of clear fluid. Her epidural is now in place.We will continue to follow her closely.
[2019-05-29] MEDS ORDERED: LIDOCAINE 2%-EPI 1:100000 20 ML MDV TD ONE (10:20)
[2019-05-29] MEDS ORDERED: OXYTOCIN/DEXTROSE 5 % 30 UNIT/500 ML BAG IV ONE (11:13)
[2019-05-29] MEDS: OXYTOCIN/DEXTROSE 5 % 30 UNIT/500 ML BAG IV SCH ×2 (12:42→21:28)
--- NOTE | 2019-05-29 14:28 | PROVIDER PROGRESS NOTE ---
Labor Progress Note - Labor Progress Note Labor Progress Note/Additional Text: The cervix is now 5 cm / 80%/-1.She continues to leak fluid. Contractions are moderate every 3 minutes. There is a category 1 EFM noted. Her Pitocin is at 3 mL/min. We will continue to follow her closely.She now has her epidural in place.
--- NOTE | 2019-05-29 17:59 | PROVIDER PROGRESS NOTE ---
Labor Progress Note - Labor Progress Note Labor Progress Note/Additional Text: The patient became more uncomfortable. A check of her cervix reveals the cervix to be complete with respect to cervical dilatation. The fetus is at a 0 to +1 station.A category 1 EFM is still appreciated. She is beverly every 2 to 3 minutes with firm contractions.She cannot really feel her contractions though she is complaining of pain. We will have anesthesia come to reassess the epidural. We I talked to the patient about still being able to feel contractions when they happen so that she can push.We will let the fetus labor down over the next hour. And As long as the fetus remains stable We will begin with expulsatory efforts after that.
--- NOTE | 2019-05-29 18:22 | CONSULTATION NOTE ---
Consultation Report: Call to [phone] to assess new pain at L lower back. Pt was complete in dilation per last vaginal exam. New pain also started at this time. Sensory level assessed at T8 and VSS. Able to move B LE with some effort but L>R. Epidural site clean and dry with lower edge of tape beinning top roll back. Reinforced. Catheter remains at 14. After negative aspiration, cath bolused with 1% lidocaine in 2 5cc intervels, 5 mins apart. Pt states pain now down to an 8/10 after being a 12/10. Epidural rate increased to 12cc/hr. Will continue to reassess.
[2019-05-29] MEDS ORDERED: MEASLES,MUMPS & RUBELLA VACC 0.5 ML VIAL SUBQ ONE (21:22)
--- NOTE | 2019-05-29 21:30 | DELIVERY NOTE ---
Delivery Note - Labor Labor: positive: Augmented by oxytocin - Delivery Method Delivery Method: positive: Spontaneous vaginal delivery - Cervical Ripening Method Cervical Ripening Method: positive: Misoprostil - Presentation Presentation: positive: Vertex, CHRISTOPHER - left occiput anterior - Nuchal Cord Nuchal Cord: positive: None - Anesthetic Anesthetic: positive: Other (1% lidocaine with epinephrine) Volume: positive: 5cc - Amniotic Fluid Description Amniotic Fluid Description: positive: Clear - Episiotomy Type Episiotomy Type: positive: None - Laceration Laceration: positive: 2nd degree, Labial (With right labial laceration) - Suture Suture Type: positive: Chromic Suture Size: positive: 2-0, 3-0 - Delivery Outcome Delivery Outcome: positive: Livebirth - : positive: Placed in direct skin contact with mother [place] sex: positive: Female : 8lbs10.7oz - Cord Cord: positive: 3 vessels - Placenta Placenta: positive: Intact, Spontaneous - Estimated Blood Loss Estimated Blood Loss (in cc): 400 - Post Delivery Events Post Delivery Events: positive: No post delivery events - Delivery Comments (Free Text/Narrative) Delivery Comments (Free Text/Narrative): The patientWas admitted to labor and deliveryIn the evening of 05/28/2019. She was sent in for an induction by Dr. Rodgers due to polyhydramnios and gestational diabetes. The patient was at 39 weeks gestation.She was started on misoprostol for cervical ripening. Her cervix was approximately 3 cm 50% effaced and -2.She contracted all night. By the a.m. Her cervix was started to change. An epidural was placed in an amniotomy was performed after that with return of a moderate amount of clear fluid.Her contractions however spaced out and therefore a Pitocin augmentation was started. Pitocin augmentation was run up to a high dose of 8 milliunits/min.She followed at that time and normal nulliparous labor curve. There is a category 1 EFM noted throughout the labor and delivery process. The patient reached complete with respect to cervical dilatation at approximately 1740 hrs. Delivery Summary: The patient reached complete with respect to cervical dilatation approximately 1740 hrs.The fetus now was at a 0 station to +1 station.She was allowed to labor down for the next hour.After 1 hour The fetus was found to be at the +2 station. She began pushing at that time.This was approximately 1845 hrs.She brought the fetus down slowly and delivered a viable female at approximately 2028 hrs.This occurred over a second-degree perineal laceration and right labial laceration.Upon delivery the head is snug circum-nuchal cord was noted and reduced. The rest the was then delivered with gentle traction and gentle expulsatory efforts. The Was then placed on the mother's chest. After 1 minute the cord was doubly clamped and the Father of the baby cut the cord. The placenta was then delivered intact with 3 vessels at 2041 hrs.30 units Pitocin IV drip were given at that time.The uterus was beverly down firmly. The cervix was inspected and found to be intact.The laceration was infiltrated with 1% lidocaine with epinephrine and repaired with 2-0 chromic suture in the usual fashion. The right labial laceration was repaired with 3-0 chromic suture and hemostasis followed. The is a viable female weighing 8 pounds 10.7 ounces.The 5-minute was 9.Estimated blood loss was 400 mL's.Lochia was light.Both the patient and the remained in the LDRP in stable condition.
[2019-05-29 22:29] LABS: BASOPHILS # (AUTO) 0.1 10^3/uL (0.0-0.1); BASOPHILS % (AUTO) 0.4 %; HGB - HEMOGLOBIN 11.2 g/dL (12.0-16.0); LYMPHOCYTES # (AUTO) 1.3 10^3/uL (1.5-3.5); LYMPHOCYTES % (AUTO) 6.2 %; MEAN CORPUSCULAR HGB CONC 32.6 g/dL (32.0-36.0); MEAN CORPUSCULAR VOLUME 92.2 fL (81.0-99.0); MEAN PLATELET VOLUME 11.5 fL (7.9-10.8); MONOCYTES # (AUTO) 1.3 10^3/uL (0.0-1.0); MONOCYTES % (AUTO) 6.2 %; NEUTROPHILS # (AUTO) 18.7 10^3/uL (1.5-6.6); NEUTROPHILS % (AUTO) 86.6 %; PLT - PLATELET COUNT 229 10^3/uL (130-450); RED BLOOD COUNT 3.73 10^6/uL (4.20-5.40); RED CELL DISTRIBUTION WIDTH 15.2 % (12.0-15.0); WHITE BLOOD COUNT 21.6 x10^3/uL (4.8-10.8)
[2019-05-29 22:59] LABS: PLATELET ESTIMATE, MANUAL NORMAL (130-450,000) (NORMAL); PLATELET MORPHOLOGY 1+ LARGE PLATELETS (NORMAL); RBC MORPHOLOGY (MULTIPLE) NORMAL APPEARANCE (NORMAL)
[2019-05-29] MEDS: HYDROcod/ACETAM 5/325 MG TABLET PO PRN (23:50)
[2019-05-29] MEDS: IBUPROFEN 600 MG TABLET PO SCH (23:51)
[2019-05-30] MEDS: HYDROcod/ACETAM 5/325 MG TABLET PO PRN ×5 (03:53→23:21)
[2019-05-30] MEDS: IBUPROFEN 600 MG TABLET PO SCH ×3 (06:12→19:00)
[2019-05-30] MEDS: LEVOTHYROXINE 25 MCG TABLET PO SCH (06:12)
[2019-05-30] MEDS: DOCUSATE SODIUM 100 MG CAPSULE PO SCH ×2 (08:21→23:21)
[2019-05-30] MEDS: SERTRALINE 50 MG TABLET PO SCH (08:21)
--- NOTE | 2019-05-30 10:15 | PROVIDER PROGRESS NOTE ---
Subjective - Prog Note Date Prog Note Date: 05/30/19 Prog Note Time: 10:13 - Subjective Subjective: The patient is doing well today. She is ambulating well entire diet well. Lochia is light to moderate. She is breast-feeding without difficulty. Objective - Vital Signs/Intake & Output Vital Signs: Vital Signs x48h Temp Pulse Resp BP Pulse Ox 05/30/19 08:06 36.8 C 91 18 110/59 L 96 05/30/19 03:38 92 16 126/83 H 96 Intake & Output: Intake & Output 05/27/19 05/28/19 05/29/19 05/30/19 23:59 23:59 23:59 23:59 Intake Total 1322.100 450 Output Total 425 1475 Balance 897.100 -1025 - Lab Results Fish Bones: 05/29/19 22:20 Other Labs: Lab Results x24hrs 05/29/19 Range/Units 22:20 WBC 21.6 H (4.8-10.8) x10^3/uL RBC 3.73 L (4.20-5.40) 10^6/uL Hgb 11.2 L (12.0-16.0) g/dL Hct 34.4 L (37.0-47.0) % MCV 92.2 (81.0-99.0) fL MCH 30.0 (27.0-31.0) pg MCHC 32.6 (32.0-36.0) g/dL RDW 15.2 H (12.0-15.0) % Plt Count 229 (130-450) 10^3/uL MPV 11.5 H (7.9-10.8) fL Neut # (Auto) 18.7 H (1.5-6.6) 10^3/uL Lymph # (Auto) 1.3 L (1.5-3.5) 10^3/uL Eaton # (Auto) 1.3 H (0.0-1.0) 10^3/uL Eos # (Auto) 0.0 (0.0-0.7) 10^3/uL Baso # (Auto) 0.1 (0.0-0.1) 10^3/uL Absolute Nucleated RBC 0.00 x10^3/uL Nucleated RBC % 0.0 /100WBC Manual Slide Review Indicated WBC Morphology NORMAL APPEARANCE (NORMAL) Platelet Estimate NORMAL (130-450,000) (NORMAL) Platelet Morphology 1+ LARGE PLATELETS (NORMAL) RBC Morph Micro Appear NORMAL APPEARANCE (NORMAL) - Other Results/Comments Other Results/Comments: Uterus: The uterus is firm and nontender approximately 1 to 2 fingerbreadths below the umbilicus. Laceration: The laceration is clean and dry without any signs of infection. It is well approximated. Assessment/Plan - Problem List (1) Normal delivery at term Impression: day #1-stable Plan: We will continue with usual care. Her IV and IV medications will be discontinued. We will obtain a blood sugar in the morning.Discharge is anticipated tomorrow.
[2019-05-31] MEDS: IBUPROFEN 600 MG TABLET PO SCH ×4 (03:30→21:41)
[2019-05-31] MEDS: HYDROcod/ACETAM 5/325 MG TABLET PO PRN ×5 (03:31→22:40)
[2019-05-31] MEDS: SERTRALINE 50 MG TABLET PO SCH (06:59)
[2019-05-31] MEDS: LEVOTHYROXINE 25 MCG TABLET PO SCH (06:59)
--- NOTE | 2019-05-31 07:05 | PROVIDER PROGRESS NOTE ---
Subjective - Prog Note Date Prog Note Date: 05/31/19 Prog Note Time: 07:02 - Subjective Subjective: The patient continues to do well. She is without complaint today. She is ambulating well and tolerating diet well. She is voiding without difficulty. She is breast-feeding without difficulty. She would like to be discharged home today. Lochia is light. She did not have her fasting glucose done this morning because the nurses state that she ate just before her lab came. We will therefore do a 2-hour postprandial [id number] Accu-Chek here on the floor. Objective - Vital Signs/Intake & Output Vital Signs: Vital Signs x48h Temp Pulse Resp BP Pulse Ox 05/31/19 03:34 36.9 C 70 16 101/56 L 96 05/31/19 00:50 36.9 C 76 16 105/58 L 97 Intake & Output: Intake & Output 05/28/19 05/29/19 05/30/19 05/31/19 23:59 23:59 23:59 23:59 Intake Total 1322.100 450 Output Total 425 1475 Balance 897.100 -1025 - Objective Abdomen: positive: Non-tender (The uterus is firm and nontender 2 fingerbreadths below the umbilicus. Laceration is clean and dry without any signs of infection. It is well approximated.), Nml bowel sounds - Lab Results Fish Bones: 05/29/19 22:20 Assessment/Plan - Problem List (1) Normal delivery at term Impression: Impression: Term delivery Gestational Diabetes Hypothyroidism Plan: The patient will be discharged home. She was discharged home with both written and verbal instructions which included such things as: 1. No lifting, tampons douching or intercourse. 2. She is to report any temperatures greater than 100.4 or heavy vaginal bleeding 3. She is to continue her vitamins and increase her fluids 4. She is to use ibuprofen 600 mg p.o. 3 times daily PRN for pain. 5. She does not drive a car for the next 2 weeks 6. As long as she does well she will be seen in the office in 1 week for her initial visit.. She will be seen in the office in 6 weeks for her full visit. 7. The patient will continue with her present diabetes regimen at home. She will continue her Metformin and her levothyroxine
[2019-05-31] MEDS: DOCUSATE SODIUM 100 MG CAPSULE PO SCH ×2 (08:53→21:42)
--- NOTE | 2019-05-31 10:17 | DISCHARGE SUMMARY ---
Physician: Terry Gonsalves DO DATE OF ADMISSION: 05/29/2019 DATE OF DISCHARGE: 05/31/2019 ADMITTING DIAGNOSES 1. Intrauterine at 39 weeks' gestation. 2. Gestational diabetes mellitus. 3. Hypothyroidism. 4. Depression. 5. Borderline polyhydramnios. DISCHARGE DIAGNOSES 1. Delivery at 39 weeks' 1 day gestation. 2. Gestational diabetes. 3. Hypothyroidism. 4. Depression. 5. Borderline polyhydramnios. PROCEDURES 1. Misoprostol and Pitocin induction of labor. 2. Spontaneous assisted vaginal delivery. 3. Second-degree perineal laceration and right labial laceration. 4. Repair of laceration. LABORATORY DATA: Admit CBC revealed WBCs at 14.5, RBCs of 4.05, hemoglobin of 12.3, hematocrit 37.5 with 307 platelets. Discharge CBC revealed WBCs of 21.6, RBCs of 3.73, hemoglobin 11.2, hematocrit 34.4 with 229 platelets. HOSPITAL COURSE: Patient was admitted on 05/28/2019 late in the evening for induction of labor. She was given misoprostol, and this was continued throughout the night. By the next day, her cervix was beginning to dilate, an amniotomy was performed, and patient was augmented with Pitocin. An epidural was in place. She went on to deliver a viable female with Apgars of 8 and 9 at one and five minutes, respectively. Baby weighed 8 pounds 10.7 ounces. One is referred to the delivery note for full details. On her first day, she was continued to do well. Vital signs were stable. She was afebrile. The lacerations were clean and dry without any signs of infection. They were well approximated. Lochia was light to moderate. By her second day, she continued to do well. She was without difficulty, ambulating well, and tolerating diet well. She is voiding without difficulty. The lacerations remained clean and dry without any signs of infection. The uterus was firm and nontender, 2 fingerbreadths below the umbilicus. Her lochia was now light. She has not had any metformin overnight, and her blood sugar after 2-hour postprandial was between 60 and 70. It was felt the patient was stable. She did wish for discharge, and it felt she was stable and could be discharged home. DISCHARGE INSTRUCTIONS Patient discharged home with written and verbal instructions including such things as 1. She should forego any lifting, tampons, douching or intercourse. 2. She is to report any temperature greater than 100.4 or heavy vaginal bleeding. 3. She is not to drive a car for the next 2 weeks. 4. She is to continue her vitamins and increase fluids. 5. At her request, she was given a prescription for hydrocodone/acetaminophen 5/325 one p.o. every 4 hours p.r.n. pain, no refills. 6. She will use ibuprofen 600 mg p.o. t.i.d. as her first line of pain control and use narcotics after that. 7. She will hold her metformin and check her blood sugars at home as long as her blood sugars were within normal limits, she will stay on her diabetic diet. If her blood sugars increased. She will return to the metformin. 8. She will continue her levothyroxine as previously ordered. 9. As long as she does well, we will see in the office in 1 week for her initial pre check and in 6 weeks for her full check. TD: 05/31/2019 09:54 HARPREET
[2019-05-31] MEDS ORDERED: hydrOXYzine PAMOATE 25 MG CAPSULE PO PRN (17:22)
[2019-06-01] MEDS: ACETAMINOPHEN 325 MG TABLET PO PRN (01:42)
[2019-06-01] MEDS: HYDROcod/ACETAM 5/325 MG TABLET PO PRN ×2 (04:09→08:47)
[2019-06-01] MEDS: IBUPROFEN 600 MG TABLET PO SCH (04:10)
[2019-06-01] MEDS: LEVOTHYROXINE 25 MCG TABLET PO SCH (07:44)
[2019-06-01 08:04] VITALS: BP 139/82
[2019-06-01] MEDS: SERTRALINE 50 MG TABLET PO SCH (08:47)
[2019-06-01] MEDS: DOCUSATE SODIUM 100 MG CAPSULE PO SCH (08:47)
[2019-06-01] MEDS ORDERED: MEASLES,MUMPS & RUBELLA VACC 0.5 ML VIAL SUBQ ONE (11:00)
--- NOTE | 2019-06-01 12:27 | Labor Flowsheet ---
Labor Flowsheet Datetime Report Generated by CPN: 06/01/2019 12:27 Datetime: 06/01/2019 08:38 VITAL SIGNS NBP Sys/Ana/Mean (mmHg): 118 : 69 : 81 Pulse: 73 LaborFlag: Labor Datetime: 06/01/2019 07:50 SpO2 (%): 100 Datetime: 05/29/2019 20:29 UTERINE ACTIVITY Monitor Mode: External Contraction Comments: pushing directed by physician. nuchal cord x1 reduced after head delivery by physician FHR Baseline Rate : 110 Comments: to delivery of viable female Datetime: 05/29/2019 20:27 Stage 2 Comments: Pediatrics standing by for delivery Datetime: 05/29/2019 20:24 ASSESSMENT A Monitor Mode: External US Datetime: 05/29/2019 20:20 Frequency (min): q 2 min Monitor Interventions for FHR: poor trace despite adjusting u/s Datetime: 05/29/2019 20:13 Station: 3 Datetime: 05/29/2019 20:10 FHR Baseline Changes: Tachycardia Variability: Moderate 6-25 bpm Accelerations: 15X15 Decelerations: Variable Category: Category II Datetime: 05/29/2019 20:00 Resting Tone (Palpate): Relaxed Datetime: 05/29/2019 19:50 Pattern: Normal: <= 5 Contractions in 10 Minutes Datetime: 05/29/2019 19:45 PAIN Pain Scale: 9 Pain Presence: Intermittent Pain Location: Left Hip Pain Relief Measures: Epidural Given Pain Assessment Comments: Pt using epidural bolus for intermittent L hip pain. Pt declines for anes thesia to return. Datetime: 05/29/2019 19:40 Maternal Comments: pulse ox switched out Datetime: 05/29/2019 19:19 Communication Comments: Nursery RN at bedside to prepare for delivery and recieves report on labor. Pre-delivery huddle includes discussion re: shoulder dystocia Datetime: 05/29/2019 19:16 Respirations: 20 Temperature (C): 36.8 Datetime: 05/29/2019 19:15 Quality: pushes Datetime: 05/29/2019 19:05 Pushing Position: Pushing with Contractions; Pushing Lithotomy Pushing Progress: Descent with Pushing; Pushing Effectively with Contractions Datetime: 05/29/2019 19:02 COMMUNICATION Communication: RN at Bedside; RN Reviewed Strip Datetime: 05/29/2019 19:00 Duration (sec): 60-100 Oxygen Method: Room Air Datetime: 05/29/2019 18:46 STAGE 2 Pushing: Coached on Pushing Datetime: 05/29/2019 18:10 Epidural Procedure: Loading Dose Anesthesia Comments: Second half of bolus Datetime: 05/29/2019 18:07 Pain Type: Sharp; Ache Pain Coping: Talking Through Contractions Patient Position/Activity: Semi-Fowlers Comfort Measures: Breathing/Relaxation; Family Support Datetime: 05/29/2019 18:00 Anesthesia Level Check: T11 Datetime: 05/29/2019 17:42 Provider Notified (Name): C Sultana, ESTATE PLANNING DIRECTOR Datetime: 05/29/2019 17:39 VAGINAL EXAM Dilatation (cm): 10.0 Effacement (%): 10 Exam by: Dr. Major Datetime: 05/29/2019 16:15 MEDICATIONS Pitocin (milliunits): Increased to @ 8 Datetime: 05/29/2019 15:45 Pitocin Checklist: No More than 5 Uterine Contractions in 10 Minutes for any 20 Minute Interval; Ut erus Palpates Soft between Contractions Datetime: 05/29/2019 14:37 Monitor Interventions for UA: [place] Adjusted Datetime: 05/29/2019 14:33 Antiemetics/Antacids: Zofran (mg) @ 4 PATIENT CARE IV/Blood Work: IV Bag Number @ 2 Datetime: 05/29/2019 11:15 I/O Interventions: Nichols Cath Inserted Datetime: 05/29/2019 10:01 Membrane Status: Ruptured Membranes Rupture Method: Artificial Amniotic Fluid Color: Clear Amniotic Fluid Amount: Moderate Amniotic Fluid Odor: Normal Datetime: 05/29/2019 09:49 Epidural Procedure Other: Pump Started Datetime: 05/29/2019 09:30 Patient Care Comments: LR@100 Datetime: 05/29/2019 09:24 PROCEDURE TIME OUT Procedure Verify: Correct Patient Identity; Correct Side and Site are Marked; Accurate Procedure Co nsent Form; Agreement on Procedure to be Done; Correct Patient Position ANESTHESIA Anesthesia Plans: Epidural Datetime: 05/29/2019 08:02 MATERNAL ASSESSMENT Level of Consciousness: Fully Conscious DTR's/Clonus: DTRs 2+; No Clonus Headache: Denies Breath Sounds, Left: Clear and Equal Breath Sounds, Right: Clear and Equal Nausea/Vomiting: Denies RUQ Epigastric Pain: Denies Datetime: 05/29/2019 07:00 TEACHING Instructional Method: Verbal; Patient Instructed Plan of Care: Vaginal Delivery; Labor; Induction Labor/Induction: Labor Stages; Cervical Ripening; Induction Pain Management: Epidural; PRN Medications; Pain Scale/Goals; Comfort Measures Datetime: 05/29/2019 06:28 Temperature Route: Oral Datetime: 05/29/2019 04:20 Cervical Ripening Agents: Cytotec @ Datetime: 05/29/2019 03:59 Stage of : Labor Pain Goal: 6 Datetime: 05/29/2019 02:45 Analgesics/Sedatives: Tylenol (mg) @ 650 Datetime: 05/28/2019 22:30 Unit Routine: [place] to Room; Call Boss; Bed; Visiting Policy; Waiting Areas; Infant Security; Phon e/Cell Phone Use; Photography; Unit Personnel; Handwashing; Flu/Illness Precautions; Monitoring ; IV Pumps; Safety/Fall Risk Prevention; Diet/Nutrition Services; Bathroom Privileges; Routine Time O uts; Medications Medications: Cervical Ripening Related: Common Discomforts of ; Maternal Physical Changes; Maternal Emotional C hanges Datetime: 05/28/2019 22:08 Vaginal Bleeding: Normal Show Cervix, Consistency: Moderate Cervix, Position: Posterior
== END 2019-06-01 12:20 | disposition home or self-care (01) | DRG 807 ==
LOC: WFO 20:33 → FBP 20:34 → WFO 20:47 → FBP 20:48 → OBSVTOIN 05-29 10:06
PROVIDERS: ADMIT Obstetrics & Gynecology; ATTEND Obstetrics & Gynecology
PROC: 10E0XZZ Delivery of Products of Conception, External Approach (ICD-10-PCS; principal; 2019-05-29)
PROC: 0KQM0ZZ Repair Perineum Muscle, Open Approach (ICD-10-PCS; 2019-05-29)
PROC: 0HQ9XZZ Repair Perineum Skin, External Approach (ICD-10-PCS; 2019-05-29)
PROC: 10907ZC Drainage of Amniotic Fluid, Therapeutic from Products of Conception, Via Natural or Artificial Opening (ICD-10-PCS; 2019-05-29)
DX: O24.425 Gestational diabetes mellitus in childbirth, controlled by oral hypoglycemic drugs (principal); Z37.0 Single live birth; O40.3XX0 Polyhydramnios, third trimester, not applicable or unspecified; O70.1 Second degree perineal laceration during delivery; O70.0 First degree perineal laceration during delivery; O99.284 Endocrine, nutritional and metabolic diseases complicating childbirth; E03.9 Hypothyroidism, unspecified; O99.344 Other mental disorders complicating childbirth; F41.9 Anxiety disorder, unspecified; F32.9 Major depressive disorder, single episode, unspecified; Z3A.39 39 weeks gestation of pregnancy; Z91.19 Patient's noncompliance with other medical treatment and regimen; Z79.51 Long term (current) use of inhaled steroids
CPT/HCPCS: 36415; 59025; 76816; 84443; 85025; 96360; A9270; G0378; J7120; 82947

== ENCOUNTER 2019-06-25 13:16 | Emergency (ER) | payer OTHER ==
[2019-06-25] MEDS ORDERED: HYDROcod/ACETAM 5/325 MG TABLET PO STA (14:04)
--- NOTE | 2019-06-25 14:06 | ED Physician Documentation ---
History of Present Illness - Stated complaint Stated Complaint: BACK/SHOULDER PAIN RT SIDE, DIFFICULTY BREATHING - Chief complaint Chief Complaint: Ext Problem - History obtained from History obtained from: Patient - History of Present Illness Timing: Yesterday (28-year-old woman 4 weeks out from a spontaneous vaginal delivery developed right sided neck and chest pain yesterday associated with shortness of breath. No calf pain or pedal edema. No history of PE. No cough, but when she does have an occasional cough it hurts. Also hurts to take a deep breath.) Review of Systems Ten Systems: 10 systems reviewed and negative Constitutional: reports: Fatigue. denies: Fever, Chills Cardiac: reports: Chest pain / pressure. denies: Palpitations, Pedal edema, Calf pain Respiratory: reports: Dyspnea. 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 : None HEENT: None Psych: None Musculoskeletal: None Derm: None - Past Surgical History Past Surgical History: Yes General: Cholecystectomy, Appendectomy, Colonoscopy HEENT: Tonsil/Adenoidectomy - Present Medications Home Medications: Ambulatory Orders Medication Instructions Recorded Confirmed Sertraline [Zoloft] 50 mg PO DAILY 03/06/19 04/30/19 metFORMIN [Glucophage] 500 mg PO ONCE 03/06/19 04/30/19 Albuterol Sulfate [Albuterol 2 puffs IH Q4HR PRN 04/30/19 04/30/19 Sulfate Hfa] Ferrous Sulfate 1 tab PO DAILY 04/30/19 04/30/19 Levothyroxine Sodium 1 tab PO DAILY 04/30/19 04/30/19 Prochlorperazine [Compazine] 10 mg PO Q6H PRN 04/30/19 04/30/19 Oxycodone HCl/Acetaminophen 1 - 2 each PO Q6H PRN #14 tablet 06/25/19 [Percocet 5-325 mg Tablet] Rivaroxaban [Xarelto] 15 mg PO BID #42 tablet 06/25/19 Rivaroxaban [Xarelto] 20 mg PO DAILY #90 tablet 06/25/19 - Allergies Allergies/Adverse Reactions: Allergies Allergy/AdvReac Type Severity Reaction Status Date / Time cefaclor [From [facility]] Allergy Unknown Verified 06/25/19 13:22 metoclopramide [From Reglan] Allergy Unknown Verified 06/25/19 13:22 amoxicillin [From Augmentin] AdvReac Hives Verified 06/25/19 13:22 clavulanic acid AdvReac Hives Verified 06/25/19 13:22 [From Augmentin] ketorolac [From Toradol] AdvReac Headache Verified 06/25/19 13:22 Sulfa (Sulfonamide AdvReac Nausea Verified 06/25/19 13:22 Antibiotics) tramadol AdvReac Headache Verified 06/25/19 13:22 - Social History Does the pt smoke?: No Smoking Status: Former smoker Does the pt drink ETOH?: No Does the pt have substance abuse?: No - Immunizations Immunizations are current?: Yes - POLST Patient has POLST: No PD ED PE NORMAL - Vitals Vital signs reviewed: Yes - General General: Alert and oriented X 3, No acute distress - HEENT HEENT: PERRL, EOMI - Neck Neck: Supple, no meningeal sign, No bony TTP - Cardiac Cardiac: RRR, No murmur - Respiratory Respiratory: No respiratory distress, Other (Splinting her breaths, clear bilaterally.) - Abdomen Abdomen: Non tender - Back Back: No CVA TTP, No spinal TTP - Derm Derm: Normal color, Warm and dry - Extremities Extremities: No edema, No calf tenderness / cord - Neuro Neuro: Alert and oriented X 3, Normal speech Results - Vitals Vitals: Vital Signs - 24 hr 06/25/19 06/25/19 13:22 16:49 Temperature 37.4 C 37.1 C Heart Rate 74 59 L Respiratory 16 16 Rate Blood Pressure 135/81 H 115/73 O2 Saturation 99 97 Oxygen O2 Source Room air - EKG (time done) 1414 Rate: Rate (enter#) (64) Rhythm: NSR [place]: Normal Intervals: Normal [place] QRS: Normal Ischemia: Normal ST segments Computer interpretation: Agree with computer - Labs Labs: Laboratory Tests 06/25/19 06/25/19 14:22 14:22 WBC 17.2 H RBC 4.05 L Hgb 11.7 L Hct 37.4 MCV 92.3 MCH 28.9 MCHC 31.3 L RDW 15.1 H Plt Count 596 H MPV 9.9 Neut # (Auto) Not Reportable Lymph # (Auto) Not Reportable [place] # (Auto) Not Reportable Eos # (Auto) Not Reportable Baso # (Auto) Not Reportable Absolute Nucleated RBC Not Reportable Total Counted 100 Band Neuts % (Manual) 0 Abnorm Lymph % (Manual) 0 Nucleated RBC % Not Reportable Neutrophils # (Manual) 10.8 H Lymphocytes # (Manual) 5.7 H Monocytes # (Manual) 0.7 Eosinophils # (Manual) 0.0 Basophils # (Manual) 0.0 Differential Comment MANUAL DIFFERENTIAL Platelet Estimate NORMAL (130-450,000) Platelet Morphology NORMAL APPEARANCE RBC Morph Micro Appear NORMAL APPEARANCE Sodium 142 Potassium 3.2 L Chloride 105 Carbon Dioxide 29 Anion Gap 8.0 BUN 16 Creatinine 0.8 Estimated GFR (MDRD) 85 L Glucose 89 Calcium 8.6 Total Bilirubin 0.3 AST 19 ALT 20 Alkaline Phosphatase 98 Total Protein 7.1 Albumin 3.3 Globulin 3.8 Albumin/Globulin Ratio 0.9 L Lipase 30 - Rads (name of study) CT PA Radiology: EMP read contemporaneously (Segmental and subsegmental lower lobe pulmonary emboli without evidence of heart strain) PD MEDICAL DECISION MAKING - ED course ED course: 28-year-old woman with provoked PE, . She is started on Xarelto. She is appropriate for outpatient treatment given her PESI score. Departure - Departure Disposition: 01 Home, Self Care Clinical Impression: Pulmonary embolism Qualifiers: Pulmonary embolism type: multiple subsegmental (without acute cor pulmonale) Qualified Code(s): I26.94 - Multiple subsegmental pulmonary emboli without acute cor pulmonale Condition: Good Record reviewed to determine appropriate education?: Yes Instructions: Embolism Pulmonary Dc Follow-Up: Mag Asencio PA [Primary Care Provider] - Within 1 week Prescriptions: Oxycodone HCl/Acetaminophen [Percocet 5-325 mg Tablet] 1 - 2 each PO Q6H PRN #14 tablet PRN Reason: pain Rivaroxaban [Xarelto] 15 mg PO BID #42 tablet Rivaroxaban [Xarelto] 20 mg PO DAILY #90 tablet Discharge Date/Time: 06/25/19 16:51
[2019-06-25] MEDS ORDERED: IOVERSOL 320 100 ML VIAL IVP ONE ×2 (14:08→15:53)
[2019-06-25 14:28] LABS: BASOPHILS % (AUTO) 0.3 %; EOSINOPHILS % (AUTO) 0.3 %; HGB - HEMOGLOBIN 11.7 g/dL (12.0-16.0); LYMPHOCYTES % (AUTO) 27.6 %; MEAN CORPUSCULAR HEMOGLOBIN 28.9 pg (27.0-31.0); MEAN CORPUSCULAR HGB CONC 31.3 g/dL (32.0-36.0); MEAN CORPUSCULAR VOLUME 92.3 fL (81.0-99.0); MEAN PLATELET VOLUME 9.9 fL (7.9-10.8); MONOCYTES % (AUTO) 8.8 %; NEUTROPHILS % (AUTO) 62.5 %; PLT - PLATELET COUNT 596 10^3/uL (130-450); RED BLOOD COUNT 4.05 10^6/uL (4.20-5.40); RED CELL DISTRIBUTION WIDTH 15.1 % (12.0-15.0); WHITE BLOOD COUNT 17.2 x10^3/uL (4.8-10.8)
[2019-06-25 14:33] LABS: ABNORMAL LYMPHS % (MANUAL) 0 %; BAND NEUTROPHILS % (MANUAL) 0 %
[2019-06-25 14:41] LABS: ALBUMIN 3.3 g/dL (3.2-5.5); ALBUMIN/GLOBULIN RATIO 0.9 (1.0-2.2); BILIRUBIN,TOTAL 0.3 mg/dL (0.2-1.0); CALCIUM 8.6 mg/dL (8.5-10.3); CREATININE 0.8 mg/dL (0.4-1.0); TOTAL PROTEIN 7.1 g/dL (6.7-8.2)
[2019-06-25 14:43] LABS: DIFFERENTIAL COMMENT MANUAL DIFFERENTIAL; LYMPHOCYTES # (MANUAL) 5.7 10^3/uL (1.5-3.5); LYMPHOCYTES % (MANUAL) 33 %; MONOCYTES # (MANUAL) 0.7 10^3/uL (0.0-1.0); PLATELET ESTIMATE, MANUAL NORMAL (130-450,000) (NORMAL); PLATELET MORPHOLOGY NORMAL APPEARANCE (NORMAL); RBC MORPHOLOGY (MULTIPLE) NORMAL APPEARANCE (NORMAL)
--- NOTE | 2019-06-25 16:24 | CT Report ---
Reason: PE protocol, dyspnea, CP Procedure Date: 06/25/2019 Accession Number: [id number] / [id number] Procedure: CT - ANGIO CHEST W/WO CPT Code: Final Report FULL RESULT: EXAM: CT ANGIOGRAM CHEST EXAM DATE: 06/25/2019 03:51 PM. CLINICAL HISTORY: PE protocol, dyspnea, CP. COMPARISON: None. TECHNIQUE: Routine helical imaging was performed through the chest in the pulmonary arterial phase. IV Contrast: OPTI 320 80ML. Reconstructions: Coronal 3-D MIP reconstructions.Sagittal and coronal. In accordance with CT protocol optimization, one or more of the following dose reduction techniques were utilized for this exam: automated exposure control, adjustment of mA and/or KV based on patient size, or use of iterative reconstructive technique. FINDINGS: Pulmonary Arteries: Diagnostic quality: Adequate through the segmental arteries. Small bilateral lower lobe segmental to subsegmental pulmonary emboli. Best seen on images 74. Of series 4 in the right lower lobe, and images 81 and 84 of series 4 in the left lower lobe. RV/LV is within normal limits. There is no interventricular septal bowing. There is no reflux of contrast material in the IVC. Lungs/Pleura: Some scattered areas of ill-defined groundglass in the right posterior costophrenic sulcus. Nonspecific. Lungs are otherwise clear. No effusions. Mediastinum: Normal. No cardiac enlargement or adenopathy. Thoracic Aorta: Right-sided aortic arch with aberrant left subclavian artery. Upper Abdomen: Unremarkable. Other: Some slightly prominent bilateral axillary lymph nodes, larger on the right measuring up to 9 mm in short axis. IMPRESSION: 1. Study is positive for pulmonary emboli, segmental and subsegmental in the lower lobes, as described above.Tiny areas of groundglass in the right posterior sulcus are nonspecific and may be related to some atelectatic changes, or early infarct. 2. 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 RADIA The call report notification system was initiated by Dr. Aftab Gilmore at 04:17 PM on 06/25/2019. The above call report findings were discussed with Kiran Schroeder by Dr. Aftab Gilmore at 04:19 PM on 06/25/2019.
[2019-06-25] MEDS ORDERED: RIVAROXABAN 15 MG TABLET PO STA (16:28)
[2019-06-25 16:51] VITALS: BP 115/73
== END 2019-06-25 16:51 | disposition home or self-care (01) ==
LOC: ED 13:16
DX: O88.83 Other embolism in the puerperium (principal); I26.94 Multiple subsegmental thrombotic pulmonary emboli without acute cor pulmonale; Z87.891 Personal history of nicotine dependence
CPT/HCPCS: 36415; 71275; 80053; 83690; 85025; 93005; 99284; A9270; Q9967

== ENCOUNTER 2019-06-26 19:31 | Emergency (ER) | payer OTHER ==
[2019-06-26 19:59] LABS: BASOPHILS # (AUTO) 0.1 10^3/uL (0.0-0.1); BASOPHILS % (AUTO) 0.5 %; EOSINOPHILS # (AUTO) 0.1 10^3/uL (0.0-0.7); EOSINOPHILS % (AUTO) 0.8 %; HGB - HEMOGLOBIN 11.5 g/dL (12.0-16.0); LYMPHOCYTES # (AUTO) 3.6 10^3/uL (1.5-3.5); LYMPHOCYTES % (AUTO) 27.3 %; MEAN CORPUSCULAR HEMOGLOBIN 28.3 pg (27.0-31.0); MEAN CORPUSCULAR HGB CONC 30.3 g/dL (32.0-36.0); MEAN CORPUSCULAR VOLUME 93.4 fL (81.0-99.0); MEAN PLATELET VOLUME 9.9 fL (7.9-10.8); MONOCYTES # (AUTO) 1.5 10^3/uL (0.0-1.0); MONOCYTES % (AUTO) 11.4 %; NEUTROPHILS # (AUTO) 7.8 10^3/uL (1.5-6.6); NEUTROPHILS % (AUTO) 59.6 %; PLT - PLATELET COUNT 579 10^3/uL (130-450); RED BLOOD COUNT 4.07 10^6/uL (4.20-5.40); RED CELL DISTRIBUTION WIDTH 15.3 % (12.0-15.0)
[2019-06-26 20:13] LABS: ALBUMIN 3.3 g/dL (3.2-5.5); ALBUMIN/GLOBULIN RATIO 0.9 (1.0-2.2); BILIRUBIN,TOTAL 0.4 mg/dL (0.2-1.0); CALCIUM 8.8 mg/dL (8.5-10.3); CREATININE 0.8 mg/dL (0.4-1.0); TOTAL PROTEIN 6.9 g/dL (6.7-8.2)
--- NOTE | 2019-06-26 20:33 | ED Physician Documentation ---
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 : None HEENT: None Psych: None Musculoskeletal: None Derm: None - Past Surgical History Past Surgical History: Yes General: Cholecystectomy, Appendectomy, Colonoscopy HEENT: Tonsil/Adenoidectomy - Present Medications Home Medications: Ambulatory Orders Medication Instructions Recorded Confirmed Sertraline [Zoloft] 50 mg PO DAILY 03/06/19 04/30/19 metFORMIN [Glucophage] 500 mg PO ONCE 03/06/19 04/30/19 Albuterol Sulfate [Albuterol 2 puffs IH Q4HR PRN 04/30/19 04/30/19 Sulfate Hfa] Ferrous Sulfate 1 tab PO DAILY 04/30/19 04/30/19 Levothyroxine Sodium 1 tab PO DAILY 04/30/19 04/30/19 Prochlorperazine [Compazine] 10 mg PO Q6H PRN 04/30/19 04/30/19 Oxycodone HCl/Acetaminophen 1 - 2 each PO Q6H PRN #14 tablet 06/25/19 [Percocet 5-325 mg Tablet] Rivaroxaban [Xarelto] 15 mg PO BID #42 tablet 06/25/19 Rivaroxaban [Xarelto] 20 mg PO DAILY #90 tablet 06/25/19 - Allergies Allergies/Adverse Reactions: Allergies Allergy/AdvReac Type Severity Reaction Status Date / Time cefaclor [From Ceclor] Allergy Unknown Verified 06/25/19 13:22 metoclopramide [From Reglan] Allergy Unknown Verified 06/25/19 13:22 amoxicillin [From Augmentin] AdvReac Hives Verified 06/25/19 13:22 clavulanic acid AdvReac Hives Verified 06/25/19 13:22 [From Augmentin] ketorolac [From Toradol] AdvReac Headache Verified 06/25/19 13:22 Sulfa (Sulfonamide AdvReac Nausea Verified 06/25/19 13:22 Antibiotics) tramadol AdvReac Headache Verified 06/25/19 13:22 - Social History Does the pt smoke?: No Smoking Status: Never smoker Does the pt drink ETOH?: No Does the pt have substance abuse?: No - Immunizations Immunizations are current?: Yes - POLST Patient has POLST: No Results - Vitals Vitals: Vital Signs - 24 hr 06/26/19 06/26/19 06/26/19 19:34 19:38 20:08 Heart Rate 100 100 77 Respiratory 24 24 13 Rate Blood Pressure 129/84 H 129/84 H 115/64 O2 Saturation 97 97 96 Oxygen O2 Source Room air - Labs Labs: Laboratory Tests 06/26/19 06/26/19 19:50 19:50 WBC 13.0 H RBC 4.07 L Hgb 11.5 L Hct 38.0 MCV 93.4 MCH 28.3 MCHC 30.3 L RDW 15.3 H Plt Count 579 H MPV 9.9 Neut # (Auto) 7.8 H Lymph # (Auto) 3.6 H [place] # (Auto) 1.5 H Eos # (Auto) 0.1 Baso # (Auto) 0.1 Absolute Nucleated RBC 0.00 Nucleated RBC % 0.0 Sodium 142 Potassium 3.6 Chloride 103 Carbon Dioxide 30 Anion Gap 9.0 BUN 15 Creatinine 0.8 Estimated GFR (MDRD) 85 L Glucose 91 Calcium 8.8 Total Bilirubin 0.4 AST 392 H ALT 214 H Alkaline Phosphatase 256 H Total Protein 6.9 Albumin 3.3 Globulin 3.6 Albumin/Globulin Ratio 0.9 L Lipase 34
[2019-06-26] MEDS ORDERED: HYDROmorphone 1 MG/ML CARPUJECT IVP STA (20:38)
[2019-06-26] MEDS ORDERED: ENOXAPARIN 100 MG/ML SYRINGE SUBQ STA (20:41)
--- NOTE | 2019-06-26 20:41 | ED Physician Documentation ---
History of Present Illness - Stated complaint Stated Complaint: CP,SOA,BACK PX - Chief complaint Chief Complaint: General - History obtained from History obtained from: Patient - History of Present Illness Timing: Today (I saw her yesterday, she has provoked post PE, small, pain is uncontrolled and worse today, she is a little more short of breath 2. She has been taking her Xarelto, total of 3 doses, 1 yesterday and 2 today. The Percocet has not been helpful. She has not been taking extra Tylenol in addition to the Percocet. She had 3 doses of Percocet today.) Review of Systems Constitutional: denies: Fever, Chills Cardiac: reports: Chest pain / pressure. denies: Palpitations Respiratory: reports: Dyspnea. 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 : None HEENT: None Psych: None Musculoskeletal: None Derm: None - Past Surgical History Past Surgical History: Yes General: Cholecystectomy, Appendectomy, Colonoscopy HEENT: Tonsil/Adenoidectomy - Present Medications Home Medications: Ambulatory Orders Medication Instructions Recorded Confirmed Sertraline [Zoloft] 50 mg PO DAILY 03/06/19 04/30/19 metFORMIN [Glucophage] 500 mg PO ONCE 03/06/19 04/30/19 Albuterol Sulfate [Albuterol 2 puffs IH Q4HR PRN 04/30/19 04/30/19 Sulfate Hfa] Ferrous Sulfate 1 tab PO DAILY 04/30/19 04/30/19 Levothyroxine Sodium 1 tab PO DAILY 04/30/19 04/30/19 Prochlorperazine [Compazine] 10 mg PO Q6H PRN 04/30/19 04/30/19 Oxycodone HCl/Acetaminophen 1 - 2 each PO Q6H PRN #14 tablet 06/25/19 [Percocet 5-325 mg Tablet] Rivaroxaban [Xarelto] 15 mg PO BID #42 tablet 06/25/19 Rivaroxaban [Xarelto] 20 mg PO DAILY #90 tablet 06/25/19 Gabapentin [Neurontin] 300 mg PO TID #20 capsule 11/16/19 Oxycodone HCl [Roxicodone] 15 mg PO Q6H PRN #15 tablet 06/26/19 - Allergies Allergies/Adverse Reactions: Allergies Allergy/AdvReac Type Severity Reaction Status Date / Time cefaclor [From Ceclor] Allergy Unknown Verified 06/25/19 13:22 metoclopramide [From Reglan] Allergy Unknown Verified 06/25/19 13:22 amoxicillin [From Augmentin] AdvReac Hives Verified 06/25/19 13:22 clavulanic acid AdvReac Hives Verified 06/25/19 13:22 [From Augmentin] ketorolac [From Toradol] AdvReac Headache Verified 06/25/19 13:22 Sulfa (Sulfonamide AdvReac Nausea Verified 06/25/19 13:22 Antibiotics) tramadol AdvReac Headache Verified 06/25/19 13:22 - Social History Does the pt smoke?: No Smoking Status: Never smoker Does the pt drink ETOH?: No Does the pt have substance abuse?: No - Immunizations Immunizations are current?: Yes - POLST Patient has POLST: No PD ED PE NORMAL - Vitals Vital signs reviewed: Yes - General General: Alert and oriented X 3, No acute distress - HEENT HEENT: PERRL, EOMI - Neck Neck: Supple, no meningeal sign, No bony TTP - Cardiac Cardiac: RRR, No murmur - Respiratory Respiratory: No respiratory distress, Clear bilaterally - Abdomen Abdomen: Non tender - Extremities Extremities: No calf tenderness / cord - Neuro Neuro: Alert and oriented X 3, Normal speech Results - Vitals Vitals: Vital Signs - 24 hr 06/26/19 06/26/19 06/26/19 19:34 19:38 20:08 Heart Rate 100 100 77 Respiratory 24 24 13 Rate Blood Pressure 129/84 H 129/84 H 115/64 O2 Saturation 97 97 96 06/26/19 06/26/19 06/26/19 20:30 21:00 22:00 Heart Rate 81 94 117 H Respiratory 20 18 20 Rate Blood Pressure 123/68 115/68 126/68 O2 Saturation 98 94 94 Oxygen O2 Source Room air - Labs Labs: Laboratory Tests 06/26/19 06/26/19 06/26/19 19:50 19:50 19:50 WBC 13.0 H RBC 4.07 L Hgb 11.5 L Hct 38.0 MCV 93.4 MCH 28.3 MCHC 30.3 L RDW 15.3 H Plt Count 579 H MPV 9.9 Neut # (Auto) 7.8 H Lymph # (Auto) 3.6 H [place] # (Auto) 1.5 H Eos # (Auto) 0.1 Baso # (Auto) 0.1 Absolute Nucleated RBC 0.00 Nucleated RBC % 0.0 Sodium 142 Potassium 3.6 Chloride 103 Carbon Dioxide 30 Anion Gap 9.0 BUN 15 Creatinine 0.8 Estimated GFR (MDRD) 85 L Glucose 91 Calcium 8.8 Total Bilirubin 0.4 AST 392 H ALT 214 H Alkaline Phosphatase 256 H B-Natriuretic Peptide 55 Total Protein 6.9 Albumin 3.3 Globulin 3.6 Albumin/Globulin Ratio 0.9 L Lipase 34 PD MEDICAL DECISION MAKING - ED course ED course: 28-year-old woman with known small PEs on anticoagulation. Pain is uncontrolled. Note made that her liver enzymes are up a bit today. She has not taken more than 3 doses of Tylenol today so that should be it. She does not have a gallbladder. This is a known side effect of Xarelto so I might switch her to something else, we talked about Lovenox and warfarin. I did talk with Dr. Briggs on-call for clinic about this and they will repeat her liver enzymes on Friday guarding the warfarin. Pain was difficult to control, cannot use NSAIDs because now she is anticoagulated, she does have an allergy to Toradol as well. Do not use more Tylenol, with the ongoing liver inflammation. Divided doses of narcotics were minimally effective. I will add some gabapentin. She understands she cannot really breast-feed with the current dosing. Departure - Departure Disposition: Home, Self Care Clinical Impression: Pulmonary embolism Qualifiers: Pulmonary embolism type: multiple subsegmental (without acute cor pulmonale) Qualified Code(s): I26.94 - Multiple subsegmental pulmonary emboli without acute cor pulmonale Condition: Good Record reviewed to determine appropriate education?: Yes Instructions: Embolism Pulmonary Dc, Lovenox, Warfarin Prescriptions: Gabapentin [Neurontin] 300 mg PO TID #20 capsule Oxycodone HCl [Roxicodone] 15 mg PO Q6H PRN #15 tablet PRN Reason: Pain Comments: As discussed, on the current dosing of pain medications I would advise you not to breast-feed. This could be dangerous for the baby. Return for new or worsening symptoms. Follow-up with your doctor on Friday, you will need repeat liver enzymes, also start monitoring for the warfarin.
[2019-06-26] MEDS ORDERED: MORPHINE 10 MG/ML VIAL IVP STA (21:39)
[2019-06-26 22:04] VITALS: BP 126/68
[2019-06-26] MEDS ORDERED: WARFARIN 5 MG TABLET PO STA (22:15)
== END 2019-06-26 22:32 | disposition home or self-care (01) ==
LOC: ED 19:31
DX: O88.83 Other embolism in the puerperium (principal); I26.94 Multiple subsegmental thrombotic pulmonary emboli without acute cor pulmonale; R74.8 Abnormal levels of other serum enzymes
CPT/HCPCS: 36415; 80053; 83690; 83880; 85025; 93005; 96372; 96374; 96375; 99283; 99284; A9270; J1170; J1650

== ENCOUNTER 2019-06-28 11:09 | Outpatient (CLI) | payer OTHER ==
[2019-06-28 11:40] LABS: BASOPHILS # (AUTO) 0.1 10^3/uL (0.0-0.1); BASOPHILS % (AUTO) 0.4 %; HGB - HEMOGLOBIN 10.7 g/dL (12.0-16.0); LYMPHOCYTES # (AUTO) 1.8 10^3/uL (1.5-3.5); LYMPHOCYTES % (AUTO) 11.2 %; MEAN CORPUSCULAR HGB CONC 31.4 g/dL (32.0-36.0); MEAN CORPUSCULAR VOLUME 92.4 fL (81.0-99.0); MEAN PLATELET VOLUME 10.2 fL (7.9-10.8); MONOCYTES # (AUTO) 0.3 10^3/uL (0.0-1.0); MONOCYTES % (AUTO) 1.8 %; NEUTROPHILS % (AUTO) 85.8 %; PLT - PLATELET COUNT 536 10^3/uL (130-450); RED BLOOD COUNT 3.69 10^6/uL (4.20-5.40); RED CELL DISTRIBUTION WIDTH 15.3 % (12.0-15.0); WHITE BLOOD COUNT 16.3 x10^3/uL (4.8-10.8)
[2019-06-28 11:56] LABS: ALBUMIN 3.3 g/dL (3.2-5.5); BILIRUBIN,DIRECT 0.1 mg/dL (0.1-0.5); BILIRUBIN,TOTAL 0.3 mg/dL (0.2-1.0); TOTAL PROTEIN 7.3 g/dL (6.7-8.2)
== END 2019-06-28 11:10 | disposition home or self-care (01) ==
LOC: LAB 11:09
PROVIDERS: ATTEND Obstetrics & Gynecology
DX: I26.94 Multiple subsegmental thrombotic pulmonary emboli without acute cor pulmonale (principal)
CPT/HCPCS: 36415; 80076; 85025

== ENCOUNTER 2019-06-28 19:16 | Outpatient (CLI) | payer OTHER ==
--- NOTE | 2019-06-28 21:23 | Ultrasound Report ---
Reason: VAGINAL BLEEDING Procedure Date: 06/28/2019 Accession Number: [id number] / [id number] Procedure: US - Pelvic w/Transvaginal CPT Code: Final Report FULL RESULT: EXAM: PELVIC ULTRASOUND EXAM DATE: 06/28/2019 08:15 PM. CLINICAL HISTORY: VAGINAL BLEEDING. 4 weeks . COMPARISON: None. TECHNIQUE: Realtime transabdominal pelvic scan performed to identify the uterus and adnexa and as an overview of other pelvic structures, followed by transvaginal scan to provide greater detail of the uterus and adnexa, with static image documentation. FINDINGS: Uterus: 8.5 x 4.0 x 5.4 cm, volume 96.3 cc. Anteverted position. Normal overall size and echotexture. Masses: None. Endometrium: 5 mm. Heterogeneous endometrium with normal thickness, but internal vascularity. Cervix: Fluid within the endocervical canal. Right Ovary: 3.1 x 1.9 x 2.5 cm, volume 8 cc. Normal echotexture and blood flow. Left Ovary: 2.7 x 2.0 x 3.0 cm, volume 8 cc. Normal echotexture and blood flow. Free Fluid: None. Other: Patient currently passing clots. IMPRESSION: Endometrial Vascularity, endometritis versus retained products of conception. RADIA
== END 2019-06-28 19:17 | disposition home or self-care (01) ==
LOC: DI 19:16
PROVIDERS: ATTEND Obstetrics & Gynecology
DX: N93.9 Abnormal uterine and vaginal bleeding, unspecified (principal)
CPT/HCPCS: 76830; 76856

== ENCOUNTER 2019-06-28 20:07 | Emergency (ER) | payer OTHER ==
[2019-06-28] MEDS ORDERED: LIDOCAINE 1% 2 ML VIAL MC ONE (21:15)
[2019-06-28] MEDS ORDERED: cefTRIAXone 1 GM VIAL IM STA (21:15)
--- NOTE | 2019-06-28 21:18 | ED Physician Documentation ---
History of Present Illness - Stated complaint Stated Complaint: POST PARDUM COMPLICATIONS - Chief complaint Chief Complaint: General - History obtained from History obtained from: Patient - History of Present Illness Timing: Today, Other (fever of 1 day) Severity Comments: moderate, temperature of 101 Quality: fever, crampy intermittent pelvic pain Radiates to: none Improved by: percocet Worsened by: nothing Associated symptoms: reports no nausea, vomiting, diarrhea, congestion. Reports she has been having vaginal bleeding and clotting since her - Treatment prior to arrival Treatment prior to arrival: percocet - Additonal information Additional information: 28 y/o F on lovenox and warfarin for recently diagnosed PE. Has had vaginal bleeding since her which was a vaginal delivery a few weeks ago and had an US today to determine if she has retained products of conception. The US result is pending, this was an outpt study. She saw her Obgyn, Dr. Morales today who performed a pelvic exam and noted blood clots and some mucus. She later had a fever today. Dr. Morales started her on antibiotics, doxycycline but has no Rocephin in the office thus sent her to the ED for one dose of rocephin. Pt states her PE pain is controlled with percocet. She is just here for her shot and will f/u with Dr. Morales in the morning. Review of Systems Ten Systems: 10 systems reviewed and negative Constitutional: reports: Fever. denies: Chills Ears: reports: Reviewed and negative Nose: reports: Reviewed and negative Cardiac: reports: Chest pain / pressure Respiratory: reports: Dyspnea GI: denies: Abdominal Pain, Abdominal Swelling, Nausea, Vomiting : reports: Vaginal bleeding (with clots) Skin: reports: Reviewed and negative Musculoskeletal: reports: Reviewed and negative Neurologic: reports: Reviewed and negative Endocrine: reports: Reviewed and negative PD PAST MEDICAL HISTORY - Past Medical History Past Medical History: Yes Cardiovascular: None, Pulmonary embolism Respiratory: Asthma Neuro: Headaches, Migraines Endocrine/Autoimmune: None GI: None 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 : None HEENT: None Psych: None Musculoskeletal: None Derm: None - Past Surgical History Past Surgical History: Yes General: Cholecystectomy, Appendectomy, Colonoscopy HEENT: Tonsil/Adenoidectomy - Present Medications Home Medications: Ambulatory Orders Medication Instructions Recorded Confirmed Sertraline [Zoloft] 50 mg PO DAILY 03/06/19 04/30/19 metFORMIN [Glucophage] 500 mg PO ONCE 03/06/19 04/30/19 Albuterol Sulfate [Albuterol 2 puffs IH Q4HR PRN 04/30/19 04/30/19 Sulfate Hfa] Ferrous Sulfate 1 tab PO DAILY 04/30/19 04/30/19 Levothyroxine Sodium 1 tab PO DAILY 04/30/19 04/30/19 Prochlorperazine [Compazine] 10 mg PO Q6H PRN 04/30/19 04/30/19 Oxycodone HCl/Acetaminophen 1 - 2 each PO Q6H PRN #14 tablet 06/25/19 [Percocet 5-325 mg Tablet] Rivaroxaban [Xarelto] 15 mg PO BID #42 tablet 06/25/19 Rivaroxaban [Xarelto] 20 mg PO DAILY #90 tablet 06/25/19 Gabapentin [Neurontin] 300 mg PO TID #20 capsule 06/26/19 Oxycodone HCl [Roxicodone] 15 mg PO Q6H PRN #15 tablet 06/26/19 - Allergies Allergies/Adverse Reactions: Allergies Allergy/AdvReac Type Severity Reaction Status Date / Time cefaclor [From Ceclor] Allergy Unknown Verified 06/28/19 20:18 metoclopramide [From Reglan] Allergy Unknown Verified 06/28/19 20:18 amoxicillin [From Augmentin] AdvReac Hives Verified 06/28/19 20:18 clavulanic acid AdvReac Hives Verified 06/28/19 20:18 [From Augmentin] ketorolac [From Toradol] AdvReac Headache Verified 06/28/19 20:18 Sulfa (Sulfonamide AdvReac Nausea Verified 06/28/19 20:18 Antibiotics) tramadol AdvReac Headache Verified 06/28/19 20:18 - Social History Does the pt smoke?: No Smoking Status: Never smoker Does the pt drink ETOH?: No Does the pt have substance abuse?: No - Immunizations Immunizations are current?: Yes - POLST Patient has POLST: No PD ED PE NORMAL - Vitals Vital signs reviewed: Yes - General General: Alert and oriented X 3, No acute distress, Well developed/nourished - HEENT HEENT: Atraumatic, Pharynx benign - Neck Neck: Supple, no meningeal sign - Cardiac Cardiac: RRR - Respiratory Respiratory: No respiratory distress - Abdomen Abdomen: Soft, Non tender, Non distended - Female Female : Deferred, Other (done by specialist this morning ) - Rectal Rectal: Deferred - Derm Derm: Normal color, Warm and dry, No rash - Extremities Extremities: No deformity - Neuro Neuro: Alert and oriented X 3 Eye Opening: Spontaneous Motor: Obeys Commands Verbal: Oriented GCS Score: 15 - Psych Psych: Normal mood, Normal affect Results - Vitals Vitals: Vital Signs - 24 hr 06/28/19 20:18 Temperature 37.3 C Heart Rate 75 Respiratory 12 Rate Blood Pressure 118/80 O2 Saturation 97 Oxygen O2 Source Room air PD MEDICAL DECISION MAKING - ED course Complexity details: reviewed old records, re-evaluated patient, considered differential, d/w patient, d/w family ED course: 28 y/o F with hx and exam as documented. Well appearing but reported fever at home. Discussed case with Dr. Andrew Martínez who will f/u on pt's US results today (outpt study)/ She is afebrile with normal vitals, no tenderness on exam. She already had a pelvic exam today thus will not repeat. Given dose of rocephin, pt is already on doxycycline and will f/u with Dr. Morales in the ED today. Departure - Departure Disposition: 01 Home, Self Care Clinical Impression: Fever Qualifiers: Fever type: unspecified Qualified Code(s): R50.9 - Fever, unspecified Condition: Stable Record reviewed to determine appropriate education?: Yes Instructions: ED Endometritis Obstetric Follow-Up: Terry Gonsalves DO [Provider Admit Priv/Credential] - Tomorrow Comments: You were given a dose of antibiotics for possible pelvic infection from endometritis. Continue your antibiotics at home. Your Ultrasound result is still pending, you should contact Dr. Morales tomorrow for the result. If worsening symptoms return to the ED.
[2019-06-28] MEDS ORDERED: DOXYCYCLINE 100 MG TABLET PO STA (21:34)
[2019-06-28 21:50] VITALS: BP 117/77
== END 2019-06-28 22:02 | disposition home or self-care (01) ==
LOC: ED 20:07
DX: O86.4 Pyrexia of unknown origin following delivery (principal); O88.83 Other embolism in the puerperium; I26.94 Multiple subsegmental thrombotic pulmonary emboli without acute cor pulmonale; O99.89 Other specified diseases and conditions complicating pregnancy, childbirth and the puerperium; N93.9 Abnormal uterine and vaginal bleeding, unspecified; R10.2 Pelvic and perineal pain
CPT/HCPCS: 36415; 76830; 76856; 80076; 85025; 96372; 99283; 99284; A9270

== ENCOUNTER 2019-06-29 07:00 | Outpatient (CLI) | payer OTHER | END 2019-06-29 23:59 | disposition home or self-care (01) | LOC: LAB.WCP 07:00 | PROVIDERS: ATTEND Physician Assistant | DX: I26.99 Other pulmonary embolism without acute cor pulmonale (principal) | CPT/HCPCS: 36415; 81241 ==

== ENCOUNTER 2019-06-30 13:45 | Emergency (ER) | payer OTHER ==
[2019-06-30 14:41] LABS: BASOPHILS % (AUTO) 0.2 %; HGB - HEMOGLOBIN 10.5 g/dL (12.0-16.0); LYMPHOCYTES # (AUTO) 2.3 10^3/uL (1.5-3.5); LYMPHOCYTES % (AUTO) 18.1 %; MEAN CORPUSCULAR HEMOGLOBIN 28.5 pg (27.0-31.0); MEAN CORPUSCULAR HGB CONC 31.2 g/dL (32.0-36.0); MEAN CORPUSCULAR VOLUME 91.6 fL (81.0-99.0); MEAN PLATELET VOLUME 10.1 fL (7.9-10.8); MONOCYTES # (AUTO) 0.2 10^3/uL (0.0-1.0); MONOCYTES % (AUTO) 1.9 %; NEUTROPHILS % (AUTO) 77.9 %; PLT - PLATELET COUNT 629 10^3/uL (130-450); RED BLOOD COUNT 3.68 10^6/uL (4.20-5.40); RED CELL DISTRIBUTION WIDTH 15.7 % (12.0-15.0); WHITE BLOOD COUNT 12.8 x10^3/uL (4.8-10.8)
[2019-06-30 15:01] LABS: CREATININE 0.8 mg/dL (0.4-1.0)
[2019-06-30 15:02] LABS: ALBUMIN 2.9 g/dL (3.2-5.5); ALBUMIN/GLOBULIN RATIO 0.7 (1.0-2.2); BILIRUBIN,TOTAL 0.4 mg/dL (0.2-1.0); TOTAL PROTEIN 6.9 g/dL (6.7-8.2)
[2019-06-30] MEDS ORDERED: HYDROmorphone 2 MG/ML VIAL IM STA ×2 (15:26→17:08)
[2019-06-30] MEDS ORDERED: ONDANSETRON ODT 4 MG TABLET TL STA (15:27)
[2019-06-30] MEDS ORDERED: DEXAMETHASONE 10 MG/ML VIAL PO STA (15:27)
[2019-06-30] MEDS ORDERED: ALBUTEROL NEB 2.5 MG/3 ML INH STA (15:27)
[2019-06-30] MEDS ORDERED: CHERRY SYRUP 10 ML UDC PO ONE (15:27)
[2019-06-30 15:45] LABS: INR 1.8 (0.8-1.2)
[2019-06-30 15:52] LABS: PARTIAL THROMBOPLASTIN TIME 40.7 secs (24.9-33.3)
--- NOTE | 2019-06-30 15:55 | XRAY Report ---
Reason: SOB Procedure Date: 06/30/2019 Accession Number: [id number] / [id number] Procedure: XR - Chest 2 View X-Ray CPT Code: 70465 Final Report FULL RESULT: EXAM: CHEST RADIOGRAPHY EXAM DATE: 06/30/2019 03:30 PM. CLINICAL HISTORY: Shortness of breath COMPARISON: None. TECHNIQUE: 2 views. FINDINGS: LUNGS: Hazy bibasilar airspace opacities. PLEURA: Trace right pleural effusion. No clinically significant pneumothorax. MEDIASTINUM: Mild cardiomegaly. BONES: No suspicious osseous lesions. IMPRESSION: 1. Mild cardiomegaly. Hazy bibasilar opacities with trace right pleural effusion. Correlate clinically for CHF exacerbation versus infection/inflammation. RADIA
[2019-06-30 17:23] VITALS: BP 138/78
--- NOTE | 2019-06-30 17:44 | ED Physician Documentation ---
PD HPI CHEST PAIN - Stated complaint Stated Complaint: SOA - Chief complaint Chief Complaint: Resp - History obtained from History obtained from: Patient - History of Present Illness Timing - onset: How many days ago (has had continued chest pain and dyspnea, with recent Dx of PE. Had been taking PO pain meds Oxycodone. Had Rx for these, and taking regularly, but ran out, and Pharmacy would not fill refill until tomorrow as was supposed to last until then. So she has not had pain meds since yesterday AM. More pain today. Also feeling of having some swelling left shoulder/arm. She is taking her anticoagulant.) Timing - onset during: Light activity Timing - duration: Days Timing - details: Gradual onset, Still present, Waxing and waning Quality: Aching, Sharp, Pain Location: Left chest Worsened by: Exertion, Inspiration. No: Palpation Associated symptoms: Shortness of air, Feeling faint / dizzy, Palpitations, Cough Similar symptoms before: Diagnosis (recent PE with the chest pain and dyspnea, that has persisted.) Recently seen: Emergency Dept Review of Systems Constitutional: reports: Myalgias. denies: Fever, Chills Nose: denies: Rhinorrhea / runny nose, Congestion Throat: denies: Sore throat Cardiac: reports: Chest pain / pressure. denies: Palpitations, Pedal edema, Calf pain Respiratory: reports: Dyspnea, Cough. denies: Wheezing GI: reports: Abdominal Pain. denies: Nausea, Vomiting, Diarrhea : reports: Vaginal bleeding (continues since delivery of baby weeks ago.) Neurologic: reports: Generalized weakness. 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 : None HEENT: None Psych: None Musculoskeletal: None Derm: None - Past Surgical History Past Surgical History: Yes General: Cholecystectomy, Appendectomy, Colonoscopy HEENT: Tonsil/Adenoidectomy - Present Medications Home Medications: Ambulatory Orders Medication Instructions Recorded Confirmed Sertraline [Zoloft] 50 mg PO DAILY 03/06/19 04/30/19 metFORMIN [Glucophage] 500 mg PO ONCE 03/06/19 04/30/19 Albuterol Sulfate [Albuterol 2 puffs IH Q4HR PRN 04/30/19 04/30/19 Sulfate Hfa] Ferrous Sulfate 1 tab PO DAILY 04/30/19 04/30/19 Levothyroxine Sodium 1 tab PO DAILY 04/30/19 04/30/19 Prochlorperazine [Compazine] 10 mg PO Q6H PRN 04/30/19 04/30/19 Oxycodone HCl/Acetaminophen 1 - 2 each PO Q6H PRN #14 tablet 06/25/19 [Percocet 5-325 mg Tablet] Rivaroxaban [Xarelto] 15 mg PO BID #42 tablet 06/25/19 Rivaroxaban [Xarelto] 20 mg PO DAILY #90 tablet 06/25/19 Gabapentin [Neurontin] 300 mg PO TID #20 capsule 06/26/19 Oxycodone HCl [Roxicodone] 15 mg PO Q6H PRN #15 tablet 06/26/19 Hydrocodone/Acetaminophen 1 each PO Q6H PRN #15 tablet 06/30/19 [Hydrocodon-Acetaminophn 10-325] dexAMETHasone [Decadron] 4 mg PO DAILY #5 tablet 06/30/19 - Allergies Allergies/Adverse Reactions: Allergies Allergy/AdvReac Type Severity Reaction Status Date / Time cefaclor [From Ceclor] Allergy Unknown Verified 06/30/19 13:49 metoclopramide [From Reglan] Allergy Unknown Verified 06/30/19 13:49 amoxicillin [From Augmentin] AdvReac Hives Verified 06/30/19 13:49 clavulanic acid AdvReac Hives Verified 06/30/19 13:49 [From Augmentin] ketorolac [From Toradol] AdvReac Headache Verified 06/30/19 13:49 Sulfa (Sulfonamide AdvReac Nausea Verified 06/30/19 13:49 Antibiotics) tramadol AdvReac Headache Verified 06/30/19 13:49 - Social History Does the pt smoke?: No Smoking Status: Never smoker Does the pt drink ETOH?: No Does the pt have substance abuse?: No - Immunizations Immunizations are current?: Yes - POLST Patient has POLST: No PD ED PE NORMAL - Vitals Vital signs reviewed: Yes - General General: Alert and oriented X 3, No acute distress (but does seem to be in pain), Well developed/nourished - HEENT HEENT: Pharynx benign - Neck Neck: Supple, no meningeal sign, No adenopathy - Cardiac Cardiac: RRR, No murmur - Respiratory Respiratory: Clear bilaterally - Abdomen Abdomen: Soft, Non tender - Derm Derm: Normal color, Warm and dry Results - Vitals Vitals: Vital Signs - 24 hr 06/30/19 06/30/19 06/30/19 13:49 15:36 16:20 Temperature 37.2 C Heart Rate 70 59 L 75 Respiratory 16 18 18 Rate Blood Pressure 132/86 H 133/95 H O2 Saturation 96 98 06/30/19 17:22 Temperature Heart Rate 96 Respiratory 18 Rate Blood Pressure 138/78 H O2 Saturation 95 Oxygen O2 Source Room air - Labs Labs: Laboratory Tests 06/30/19 06/30/19 06/30/19 14:25 14:25 14:25 WBC 12.8 H RBC 3.68 L Hgb 10.5 L Hct 33.7 L MCV 91.6 MCH 28.5 MCHC 31.2 L RDW 15.7 H Plt Count 629 H MPV 10.1 Neut # (Auto) 10.0 H Lymph # (Auto) 2.3 Frederick # (Auto) 0.2 Eos # (Auto) 0.0 Baso # (Auto) 0.0 Absolute Nucleated RBC 0.02 Nucleated RBC % 0.2 PT 20.0 H INR 1.8 H APTT 40.7 H Sodium 143 Potassium 4.5 Chloride 102 Carbon Dioxide 32 Anion Gap 9.0 BUN 15 Creatinine 0.8 Estimated GFR (MDRD) 85 L Glucose 197 H Calcium 9.0 Total Bilirubin 0.4 AST 25 ALT 89 H Alkaline Phosphatase 196 H B-Natriuretic Peptide Total Protein 6.9 Albumin 2.9 L Globulin 4.0 Albumin/Globulin Ratio 0.7 L Lipase 29 06/30/19 14:25 WBC RBC Hgb Hct MCV MCH MCHC RDW Plt Count MPV Neut # (Auto) Lymph # (Auto) Frederick # (Auto) Eos # (Auto) Baso # (Auto) Absolute Nucleated RBC Nucleated RBC % PT INR APTT Sodium Potassium Chloride Carbon Dioxide Anion Gap BUN Creatinine Estimated GFR (MDRD) Glucose Calcium Total Bilirubin AST ALT Alkaline Phosphatase B-Natriuretic Peptide 127 H Total Protein Albumin Globulin Albumin/Globulin Ratio Lipase - Rads (name of study) chest xray Radiology: Prelim report reviewed (hazy bibasilar airspce opacities. trace right effusion. ), See rad report PD MEDICAL DECISION MAKING - ED course Complexity details: reviewed results (improved pain with IM meds. ), considered differential (likely pleuritic inflammation from the lung blood clot. Not seeming infectious not other acute injury.), d/w patient Departure - Departure Disposition: 01 Home, Self Care Clinical Impression: pulmonary embolism Chest pain Qualifiers: Chest pain type: chest pain on breathing Qualified Code(s): R07.1 - Chest pain on breathing Condition: Stable Record reviewed to determine appropriate education?: Yes Instructions: ED Chest Pain Pleurisy Follow-Up: Mag Asencio PA [Primary Care Provider] - Prescriptions: dexAMETHasone [Decadron] 4 mg PO DAILY #5 tablet Hydrocodone/Acetaminophen [Hydrocodon-Acetaminophn 10-325] 1 each PO Q6H PRN #15 tablet PRN Reason: Pain Comments: Use the hydrocodone 1 every 4 hours as needed for pain until you are able to get your other prescription of pain medicine tomorrow. Use Decadron steroid anti- inflammatory daily for 5 more days. Use your albuterol inhaler 2 puffs 4 times a day. Continue your blood thinner medicine. Your white count is improving and your liver enzymes are improving as well. So continue your current medications including the blood thinner and the antibiotic. I did not see the blood test for the Factor 5 resulted yet, so must still be yet to result from send out lab. Discharge Date/Time: 06/30/19 17:58
== END 2019-06-30 17:58 | disposition home or self-care (01) ==
LOC: ED 13:45
DX: O88.83 Other embolism in the puerperium (principal); I26.99 Other pulmonary embolism without acute cor pulmonale; R07.1 Chest pain on breathing
CPT/HCPCS: 36415; 71046; 80053; 83690; 83880; 85025; 85610; 85730; 93005; 94640; 96372; 99284; A9270; J1170; Q0162

== ENCOUNTER 2019-07-05 07:00 | Outpatient (CLI) | payer OTHER ==
[2019-07-05 15:23] LABS: BASOPHILS % (AUTO) 0.3 %; EOSINOPHILS % (AUTO) 0.3 %; HGB - HEMOGLOBIN 10.7 g/dL (12.0-16.0); MEAN CORPUSCULAR HEMOGLOBIN 27.6 pg (27.0-31.0); MEAN CORPUSCULAR HGB CONC 29.4 g/dL (32.0-36.0); MEAN CORPUSCULAR VOLUME 93.8 fL (81.0-99.0); MEAN PLATELET VOLUME 10.2 fL (7.9-10.8); MONOCYTES % (AUTO) 7.9 %; NEUTROPHILS % (AUTO) 56.6 %; PLT - PLATELET COUNT 749 10^3/uL (130-450); RED BLOOD COUNT 3.88 10^6/uL (4.20-5.40); RED CELL DISTRIBUTION WIDTH 16.6 % (12.0-15.0); WHITE BLOOD COUNT 21.1 x10^3/uL (4.8-10.8)
[2019-07-05 15:28] LABS: ABNORMAL LYMPHS % (MANUAL) 0 %; BAND NEUTROPHILS % (MANUAL) 0 %
[2019-07-05 15:42] LABS: ALBUMIN 3.3 g/dL (3.2-5.5); BILIRUBIN,TOTAL 0.4 mg/dL (0.2-1.0); CALCIUM 8.6 mg/dL (8.5-10.3); CREATININE 0.8 mg/dL (0.4-1.0); TOTAL PROTEIN 6.5 g/dL (6.7-8.2)
[2019-07-05 16:48] LABS: EOSINOPHILS # (MANUAL) 0.2 10^3/uL (0-0.7); LYMPHOCYTES # (MANUAL) 8.9 10^3/uL (1.5-3.5); LYMPHOCYTES % (MANUAL) 42 %; MONOCYTES # (MANUAL) 1.9 10^3/uL (0.0-1.0)
[2019-07-05 16:49] LABS: DIFFERENTIAL COMMENT MANUAL DIFFERENTIAL; PLATELET ESTIMATE, MANUAL INCREASED (>450,000) (NORMAL); PLATELET MORPHOLOGY NORMAL APPEARANCE (NORMAL)
== END 2019-07-05 23:59 | disposition home or self-care (01) ==
LOC: LAB.WCP 07:00
PROVIDERS: ATTEND Physician Assistant
DX: N71.9 Inflammatory disease of uterus, unspecified (principal); R94.5 Abnormal results of liver function studies
CPT/HCPCS: 36415; 80053; 85025

== ENCOUNTER 2019-07-06 07:00 | Outpatient (CLI) | payer OTHER | END 2019-07-06 23:59 | disposition home or self-care (01) | LOC: LAB.R 07:00 | PROVIDERS: ATTEND Physician Assistant | DX: L01.00 Impetigo, unspecified (principal) | CPT/HCPCS: 87070 ==

== ENCOUNTER 2019-07-12 11:10 | Outpatient (CLI) | payer OTHER ==
[2019-07-12 19:12] LABS: BASOPHILS # (AUTO) 0.1 10^3/uL (0.0-0.1); BASOPHILS % (AUTO) 0.5 %; EOSINOPHILS # (AUTO) 0.2 10^3/uL (0.0-0.7); EOSINOPHILS % (AUTO) 1.4 %; HGB - HEMOGLOBIN 11.9 g/dL (12.0-16.0); LYMPHOCYTES # (AUTO) 4.9 10^3/uL (1.5-3.5); LYMPHOCYTES % (AUTO) 32.5 %; MEAN CORPUSCULAR HEMOGLOBIN 27.7 pg (27.0-31.0); MEAN CORPUSCULAR HGB CONC 29.2 g/dL (32.0-36.0); MEAN CORPUSCULAR VOLUME 94.7 fL (81.0-99.0); MEAN PLATELET VOLUME 10.3 fL (7.9-10.8); MONOCYTES # (AUTO) 0.9 10^3/uL (0.0-1.0); MONOCYTES % (AUTO) 6.1 %; NEUTROPHILS # (AUTO) 8.9 10^3/uL (1.5-6.6); PLT - PLATELET COUNT 793 10^3/uL (130-450); RED CELL DISTRIBUTION WIDTH 17.2 % (12.0-15.0); WHITE BLOOD COUNT 15.2 x10^3/uL (4.8-10.8)
[2019-07-12 19:40] LABS: ALBUMIN 3.8 g/dL (3.2-5.5); ALBUMIN/GLOBULIN RATIO 1.2 (1.0-2.2); BILIRUBIN,TOTAL 0.3 mg/dL (0.2-1.0); CALCIUM 9.8 mg/dL (8.5-10.3); CREATININE 0.9 mg/dL (0.4-1.0); TOTAL PROTEIN 7.1 g/dL (6.7-8.2)
== END 2019-07-12 23:59 | disposition home or self-care (01) ==
LOC: LAB.WCP 11:10
PROVIDERS: ATTEND Physician Assistant
DX: N71.9 Inflammatory disease of uterus, unspecified (principal)
CPT/HCPCS: 36415; 80053; 85025

== ENCOUNTER 2019-07-21 08:00 | Outpatient (CLI) | payer OTHER | END 2019-07-21 23:59 | disposition home or self-care (01) | LOC: LAB.WCP 08:00 | PROVIDERS: ATTEND Physician Assistant | DX: E03.9 Hypothyroidism, unspecified (principal) | CPT/HCPCS: 36415; 84443 ==

== ENCOUNTER 2019-08-18 08:41 | Outpatient (CLI) | payer OTHER ==
[2019-08-18 12:43] LABS: ALBUMIN 3.6 g/dL (3.2-5.5); ALBUMIN/GLOBULIN RATIO 1.1 (1.0-2.2); BILIRUBIN,TOTAL 0.4 mg/dL (0.2-1.0); CALCIUM 8.8 mg/dL (8.5-10.3); CREATININE 0.8 mg/dL (0.4-1.0); TOTAL PROTEIN 6.9 g/dL (6.7-8.2)
== END 2019-08-18 23:59 | disposition home or self-care (01) ==
LOC: LAB.WCP 08:41
PROVIDERS: ATTEND Physician Assistant
DX: Z79.899 Other long term (current) drug therapy (principal); E03.9 Hypothyroidism, unspecified
CPT/HCPCS: 36415; 80053; 84443

== ENCOUNTER 2019-10-19 08:18 | Outpatient (CLI) | payer OTHER ==
--- NOTE | 2019-10-19 21:35 | Ultrasound Report ---
Reason: FACTOR V LEIDEN MUTATION Procedure Date: 10/19/2019 Accession Number: [id number] / [id number] Procedure: US - Duplex Ext Veins Bilateral CPT Code: Final Report FULL RESULT: EXAM: BILATERAL LOWER EXTREMITY VENOUS ULTRASOUND EXAM DATE: 10/19/2019 09:34 AM. CLINICAL HISTORY: FACTOR V LEIDEN MUTATION. COMPARISON: None. TECHNIQUE: Real-time sonographic vascular imaging was performed by the skin tanner through the lower extremities utilizing both color-flow and Doppler spectral analysis. Multiple major account representative static images were saved for review. FINDINGS: Right: Common Femoral Vein (CFV): Normal. CFV-GSV Junction: Normal. Profunda Femoral Vein (PFV): Normal. Femoral Vein (FV) Prox: Normal. Femoral Vein (FV) Mid: Normal. Femoral Vein (FV) Dist: Normal. Popliteal Vein: Normal. Posterior Tibial Veins: Normal. Peroneal Veins: Normal. Left: Common Femoral Vein (CFV): Normal. CFV-GSV Junction: Normal. Profunda Femoral Vein (PFV): Normal. Femoral Vein (FV) Prox: Normal. Femoral Vein (FV) Mid: Normal. Femoral Vein (FV) Dist: Normal. Popliteal Vein: Normal. Posterior Tibial Veins: Normal. Peroneal Veins: Normal. Other: None. IMPRESSION: No evidence for deep venous thrombosis bilaterally. RADIA
== END 2019-10-19 08:19 | disposition home or self-care (01) ==
LOC: DI 08:18
PROVIDERS: ATTEND Internal Medicine
DX: D68.51 Activated protein C resistance (principal); I26.99 Other pulmonary embolism without acute cor pulmonale
CPT/HCPCS: 93970

== ENCOUNTER 2019-10-19 08:19 | Outpatient (CLI) | payer OTHER ==
[~2019-10-19 08:19] MED LIST: IOVERSOL 320 100 ML VIAL IVP ONE
[2019-10-19] MEDS ORDERED: IOVERSOL 320 100 ML VIAL IVP ONE ×2 (08:24→13:42)
[2019-10-19 10:54] LABS: HCG,QUALITATIVE BLOOD NEGATIVE
--- NOTE | 2019-10-21 09:04 | CT Report ---
Reason: FACTOR V LEIDEN MUTATION Procedure Date: 10/19/2019 Accession Number: [id number] / [id number] Procedure: CT - ANGIO CHEST W/WO CPT Code: Final Report FULL RESULT: EXAM: CT ANGIOGRAM CHEST EXAM DATE: 10/19/2019 11:24 AM. CLINICAL HISTORY: FACTOR V LEIDEN MUTATION. History of pulmonary emboli. COMPARISON: CHEST ANGIO 06/25/2019 3:47 PM. TECHNIQUE: Routine helical imaging was performed through the chest in the pulmonary arterial phase. IV Contrast: 80 mL OPTIRAY 320. Reconstructions: Coronal 3-D MIP reconstructions. Sagittal and coronal. In accordance with CT protocol optimization, one or more of the following dose reduction techniques were utilized for this exam: automated exposure control, adjustment of mA and/or KV based on patient size, or use of iterative reconstructive technique. FINDINGS: Pulmonary Arteries: Diagnostic quality: Adequate through the segmental arteries. No evidence for acute or chronic pulmonary emboli. RV/LV is within normal limits. There is no interventricular septal bowing. There is no reflux of contrast material in the IVC. Lungs/Pleura: Subtle left upper lobe mosaic attenuation. Mediastinum: Borderline left hilar adenopathy measuring 10 mm short axis. 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 Upper Abdomen: diverticulosis. Prior cholecystectomy. Other: None. IMPRESSION: 1. No acute pulmonary emboli. No definite chronic pulmonary emboli. 2. Subtle left upper lobe mosaic attenuation. Consider VQ scan for increased sensitivity to exclude chronic pulmonary emboli if clinically warranted. 3. Borderline left hilar adenopathy, question reactive lymph nodes. 4. Right sided aortic arch with aberrant left subclavian artery, normal variant. 5. Diverticulosis. RADIA
== END 2019-10-19 08:20 | disposition home or self-care (01) ==
LOC: DI 08:19
PROVIDERS: ATTEND Internal Medicine
DX: D68.51 Activated protein C resistance (principal); I26.99 Other pulmonary embolism without acute cor pulmonale; Z30.09 Encounter for other general counseling and advice on contraception
CPT/HCPCS: 71275; 84703

== ENCOUNTER 2019-12-30 12:57 | Outpatient (CLI) | payer OTHER ==
--- NOTE | 2019-12-30 15:06 | MRI Report ---
Reason: BACK PAIN,CERVICAL RADICULOPATHY LT SIDE Procedure Date: 12/30/2019 Accession Number: [id number] / [id number] Procedure: MRI - Lumbar Spine W/O CPT Code: Final Report FULL RESULT: EXAM: MRI LUMBAR SPINE WITHOUT CONTRAST EXAM DATE: 12/30/2019 01:52 PM. CLINICAL HISTORY: BACK PAIN, CERVICAL RADICULOPATHY LT SIDE. COMPARISON: None. TECHNIQUE: Multiplanar, multisequence T1-weighted and fluid-sensitive sequences of the lumbar spine from T12 to S1 without contrast. Other: None. FINDINGS: Trace retrolisthesis of L4 on L5. Lumbar alignment elsewhere is anatomic. Vertebral body height is preserved. There is no fracture. The conus is normal in contour with the tip at the level of the superior endplate of L1. Axial images demonstrate the following: T12-L1: Normal L1-L2: Normal L2-L3: Normal L3-L4: Normal L4-L5: Mild loss of disk height with mild diffuse disk bulge and a tiny posterior midline annular fissure. The facet joints are normal. No central or foraminal stenosis. L5-S1: Normal IMPRESSION: Mild degenerative disk disease at L4-L5 without central or foraminal stenosis. The remainder of the lumbar spine is unremarkable. Comment: The following findings are so common in adults without low back pain that while we report their presence, they must be interpreted with caution and in the context of the clinical situation. (Reference Kenyattak et al, Spine 2001) Prevalence of findings in patients without low back pain: Disk degeneration (any evidence): 92% Disk desiccation/T2 signal loss: 83% Disk height loss: 56% Disk bulge: 64% Disk protrusion: 32% Annular tear/high intensity zone: 38% RADIA
--- NOTE | 2019-12-30 15:10 | MRI Report ---
Reason: BACK PAIN,CERVICAL RADICULOPATHY LT SIDE Procedure Date: 12/30/2019 Accession Number: [id number] / [id number] Procedure: MRI - Cervical Spine W/O CPT Code: Final Report FULL RESULT: EXAM: CT CERVICAL SPINE WITHOUT CONTRAST DATE: 12/30/2019 02:22 PM. HISTORY: BACK PAIN, CERVICAL RADICULOPATHY LT SIDE. COMPARISONS: None. TECHNIQUE: Thin-section axial images were acquired of the cervical spine without contrast. Post-processing: Coronal and sagittal reformats. Other: None. In accordance with CT protocol optimization, one or more of the following dose reduction techniques were utilized for this exam: automated exposure control, adjustment of mA and/or KV based on patient size, or use of iterative reconstructive technique. FINDINGS: Cervical alignment is anatomic. Vertebral body height is preserved. There is no fracture. No bony lesion. Cervical spinal cord signal is normal. No cerebellar tonsillar ectopia. Axial images demonstrate the following: C2-C3: Normal C3-C4: Normal C4-C5: Normal C5-C6: Minimal disk bulge and bilateral uncovertebral hypertrophy. Findings lead to minimal left foraminal stenosis but no central or right foraminal stenosis. C6-C7: Mild left-sided degenerative facet hypertrophy. Normal intervertebral disk. Findings lead to minimal left foraminal stenosis but no central or right foraminal stenosis. C7-T1: Normal IMPRESSION: 1. Minimal disk bulge and uncovertebral hypertrophy at C5-C6 lead to minimal left foraminal stenosis. 2. Mild left-sided degenerative facet hypertrophy at C6-C7 leads to minimal left foraminal stenosis. 3. The remaining cervical levels are normal. RADIA
== END 2019-12-30 12:58 | disposition home or self-care (01) ==
LOC: DI 12:57
PROVIDERS: ATTEND Physician Assistant
DX: M47.812 Spondylosis without myelopathy or radiculopathy, cervical region (principal); M50.922 Unspecified cervical disc disorder at C5-C6 level; M48.02 Spinal stenosis, cervical region; M51.36 Other intervertebral disc degeneration, lumbar region
CPT/HCPCS: 72141; 72148

== ENCOUNTER 2020-01-04 22:58 | Outpatient (CLI) | payer OTHER | END 2020-01-04 23:59 | disposition critical access hospital (66) | LOC: EMS 22:58 | PROVIDERS: ATTEND Surgery | DX: L50.9 Urticaria, unspecified (principal); R13.10 Dysphagia, unspecified; R42 Dizziness and giddiness; R06.02 Shortness of breath; R07.89 Other chest pain | CPT/HCPCS: A0425; A0429 ==

== ENCOUNTER 2020-01-04 23:16 | Emergency (ER) | payer OTHER ==
[2020-01-04] MEDS ORDERED: diphenhydrAMINE 25 MG CAPSULE PO STA (23:31)
[2020-01-04] MEDS ORDERED: predniSONE 20 MG TABLET PO STA (23:31)
--- NOTE | 2020-01-04 23:49 | ED Physician Documentation ---
History of Present Illness - Stated complaint Stated Complaint: HIVES - Chief complaint Chief Complaint: Allergic Rx - History obtained from History obtained from: Patient - History of Present Illness Timing: Today Pain level max: 0 Pain level now: 0 - Additonal information Additional information: 29-year-old female presents to the emergency department stating she has had a rash on her legs for the past week. She states that she felt like her tongue was swelling tonight. She states she did not have any Benadryl at home so she called the ambulance to bring her here. She states she is currently feeling better. No stridor. No wheezing. Nothing makes it better or worse. No medications that are new. No soaps that are new. No new detergents. No pets. 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 : None HEENT: None Psych: None Musculoskeletal: None Derm: None - Past Surgical History Past Surgical History: Yes General: Cholecystectomy, Appendectomy, Colonoscopy HEENT: Tonsil/Adenoidectomy - Present Medications Home Medications: Ambulatory Orders Medication Instructions Recorded Confirmed Sertraline [Zoloft] 50 mg PO DAILY 03/06/19 10/20/19 Albuterol Sulfate [Albuterol 2 puffs IH Q4HR PRN 04/30/19 10/20/19 Sulfate Hfa] Levothyroxine Sodium 1 tab PO DAILY 04/30/19 10/20/19 Propranolol [Inderal] 20 mg PO DAILY 09/15/19 10/20/19 Rivaroxaban [Xarelto] 20 mg PO DAILY 09/15/19 10/20/19 predniSONE [Prednisone] 40 mg PO DAILY #10 tablet 01/04/20 - Allergies Allergies/Adverse Reactions: Allergies Allergy/AdvReac Type Severity Reaction Status Date / Time cefaclor [From Ceclor] Allergy Unknown Verified 10/20/19 10:26 metoclopramide [From Reglan] Allergy Unknown Verified 10/20/19 10:26 amoxicillin [From Augmentin] AdvReac Hives Verified 10/20/19 10:26 clavulanic acid AdvReac Hives Verified 10/20/19 10:26 [From Augmentin] ketorolac [From Toradol] AdvReac Headache Verified 10/20/19 10:26 Sulfa (Sulfonamide AdvReac Nausea Verified 10/20/19 10:26 Antibiotics) tramadol AdvReac Headache Verified 10/20/19 10:26 - Social History Does the pt smoke?: No Smoking Status: Never smoker Does the pt drink ETOH?: No Does the pt have substance abuse?: No - Immunizations Immunizations are current?: Yes - POLST Patient has POLST: No PD ED PE NORMAL - Vitals Vital signs reviewed: Yes - General General: Alert and oriented X 3, No acute distress - HEENT HEENT: PERRL, Moist mucous membranes, Pharynx benign - Neck Neck: Supple, no meningeal sign - Cardiac Cardiac: RRR - Respiratory Respiratory: No respiratory distress, Clear bilaterally - Abdomen Abdomen: Soft, Non tender, Non distended - Derm Derm: Warm and dry, Other (Mild rash to the posterior right calf.) - Extremities Extremities: No edema - Neuro Neuro: Alert and oriented X 3 Results - Vitals Vitals: Vital Signs - 24 hr 01/04/20 23:21 Temperature 37.3 C Heart Rate 90 Respiratory 14 Rate Blood Pressure 117/76 O2 Saturation 95 Oxygen O2 Source Room air PD MEDICAL DECISION MAKING - ED course Complexity details: reviewed results, re-evaluated patient, considered differential, d/w patient ED course: 29-year-old female presents to the emergency department with what appears to be an allergic reaction. Unclear etiology. We will place on steroids for home. She is well-appearing, nontoxic. Afebrile. No hypoxia. No respiratory distress. No stridor. No wheezing. No oropharyngeal involvement. No angioedema. Patient counseled regarding signs and symptoms for which I believe and urgent re-evaluation would be necessary. Patient with good understanding of and agreement to plan and is comfortable going home at this time This document was made in part using voice recognition software. While efforts are made to proofread this document, sound alike and grammatical errors may occur. Departure - Departure Disposition: 01 Home, Self Care Clinical Impression: Allergic urticaria Condition: Good Instructions: ED Allergic Reaction General Other Follow-Up: Your,doctor in 1 week [Other] Prescriptions: predniSONE [Prednisone] 40 mg PO DAILY #10 tablet Comments: Return if you worsen. Take the steroids as prescribed. It is unclear what you are allergic to tonight. Follow-up with your doctor for further care.
[2020-01-05 00:12] VITALS: BP 120/73
== END 2020-01-05 00:11 | disposition home or self-care (01) ==
LOC: EDUNIT# → ED 23:16
DX: L50.0 Allergic urticaria (principal); Z79.01 Long term (current) use of anticoagulants; Z86.711 Personal history of pulmonary embolism
CPT/HCPCS: 99283; 99284; A9270; J7512

== ENCOUNTER 2020-02-02 14:37 | Outpatient (CLI) | payer OTHER ==
[2020-02-02 19:15] LABS: RHEUMATOID FACTOR NEGATIVE (Negative)
[2020-02-04 16:54] LABS: ANA SCREEN NEGATIVE (NEGATIVE)
== END 2020-02-02 23:59 | disposition home or self-care (01) ==
LOC: LAB.WCP 14:37
PROVIDERS: ATTEND Physician Assistant
DX: M25.50 Pain in unspecified joint (principal)
CPT/HCPCS: 36415; 85651; 86038; 86140; 86430

== ENCOUNTER 2020-02-28 22:06 | Emergency (ER) | payer OTHER ==
--- NOTE | 2020-02-28 22:14 | ED Physician Documentation ---
PD HPI ALTERED MENTAL STATUS - Stated complaint Stated Complaint: DIZZY/JOINT PX - Chief complaint Chief Complaint: Neuro - History obtained from History obtained from: Patient - History of Present Illness Timing - onset: How many weeks ago (1) Timing - duration: Weeks (1) Timing - details: Gradual onset, Still present Quality / character: Disoriented (feeling somewhat less concentration and confused, but still able to function usual activities.) Associated symptoms: General weakness, Other (diffuse muscle aches, somewhat joint pains too. No rash nor sores.). No: Fever, Headache, Stiff neck Basline status: Alert and oriented X 3, Independent Similar symptoms before: No diagnosis (has muscle aches, fatigue - had been on gabapentin without improvement. Changed to Lyrica a month ago. Has pending referral to Rheumatology.) Review of Systems Constitutional: reports: Myalgias, Fatigue. denies: Fever, Chills, Weight Loss Nose: denies: Rhinorrhea / runny nose, Congestion Throat: denies: Sore throat Respiratory: denies: Cough GI: reports: Diarrhea (for several days, loose without blood/melena.). denies: Abdominal Pain, Nausea, Vomiting, Constipation : denies: Dysuria, Missed period Skin: denies: Rash, Lesions Neurologic: reports: Generalized weakness. 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 : None HEENT: None Psych: None Musculoskeletal: None Derm: None - Past Surgical History Past Surgical History: Yes General: Cholecystectomy, Appendectomy, Colonoscopy HEENT: Tonsil/Adenoidectomy - Present Medications Home Medications: Ambulatory Orders Medication Instructions Recorded Confirmed Sertraline [Zoloft] 50 mg PO DAILY 03/06/19 10/20/19 Albuterol Sulfate [Albuterol 2 puffs IH Q4HR PRN 04/30/19 10/20/19 Sulfate Hfa] Levothyroxine Sodium 1 tab PO DAILY 04/30/19 10/20/19 Propranolol [Inderal] 20 mg PO DAILY 09/15/19 10/20/19 Rivaroxaban [Xarelto] 20 mg PO DAILY 09/15/19 10/20/19 predniSONE [Prednisone] 40 mg PO DAILY #10 tablet 01/04/20 Hydrocodone/Acetaminophen [[place] 1 each PO Q6H PRN #18 tablet 02/29/20 5-325 Tablet] Meloxicam 7.5 mg PO BID #30 tablet 02/29/20 - Allergies Allergies/Adverse Reactions: Allergies Allergy/AdvReac Type Severity Reaction Status Date / Time cefaclor [From Ceclor] Allergy Unknown Verified 02/28/20 22:09 metoclopramide [From Reglan] Allergy Unknown Verified 02/28/20 22:09 amoxicillin [From Augmentin] AdvReac Hives Verified 02/28/20 22:09 clavulanic acid AdvReac Hives Verified 02/28/20 22:09 [From Augmentin] ketorolac [From Toradol] AdvReac Headache Verified 02/28/20 22:09 Sulfa (Sulfonamide AdvReac Nausea Verified 02/28/20 22:09 Antibiotics) tramadol AdvReac Headache Verified 02/28/20 22:09 - Social History Does the pt smoke?: No Smoking Status: Never smoker Does the pt drink ETOH?: No Does the pt have substance abuse?: No - Immunizations Immunizations are current?: Yes - POLST Patient has POLST: No PD ED PE NORMAL - Vitals Vital signs reviewed: Yes - General General: Alert and oriented X 3, No acute distress, Well developed/nourished - HEENT HEENT: Moist mucous membranes, Pharynx benign - Neck Neck: Supple, no meningeal sign, No adenopathy - Cardiac Cardiac: RRR, No murmur - Respiratory Respiratory: No respiratory distress, Clear bilaterally - Abdomen Abdomen: Normal bowel sounds, Soft, Non tender, Non distended, No organomegaly - Female Female : Deferred - Rectal Rectal: Deferred - Back Back: No CVA TTP - Derm Derm: Normal color, Warm and dry - Extremities Extremities: No edema, Other (General muscular tenderness along the extremities. No joint effusions noted) - Neuro Neuro: Alert and oriented X 3, No motor deficit, Normal speech Eye Opening: Spontaneous Motor: Obeys Commands Verbal: Oriented GCS Score: 15 Results - Vitals Vitals: Vital Signs - 24 hr 02/28/20 02/29/20 22:09 00:23 Temperature 36.5 C Heart Rate 66 64 Respiratory 16 19 Rate Blood Pressure 136/84 H 115/66 O2 Saturation 94 95 Oxygen O2 Source Room air - Labs Labs: Laboratory Tests 02/28/20 02/28/20 02/28/20 22:50 22:50 22:50 WBC 13.5 H RBC 4.72 Hgb 13.4 Hct 41.5 MCV 87.9 MCH 28.4 MCHC 32.3 RDW 17.0 H Plt Count 394 MPV 10.1 Neut # (Auto) Not Reportable Lymph # (Auto) Not Reportable Grand # (Auto) Not Reportable Eos # (Auto) Not Reportable Baso # (Auto) Not Reportable Absolute Nucleated RBC Not Reportable Total Counted 100 Band Neuts % (Manual) 0 Abnorm Lymph % (Manual) 0 Nucleated RBC % Not Reportable Neutrophils # (Manual) 7.4 H Lymphocytes # (Manual) 3.5 Monocytes # (Manual) 0.7 Eosinophils # (Manual) 1.6 H Basophils # (Manual) 0.3 H Differential Comment MANUAL DIFFERENTIAL WBC Morphology NORMAL APPEARANCE Platelet Estimate NORMAL (130-450,000) Platelet Morphology NORMAL APPEARANCE RBC Morph Micro Appear NORMAL APPEARANCE ESR 13 Sodium Potassium Chloride Carbon Dioxide Anion Gap BUN Creatinine Estimated GFR (MDRD) Glucose Calcium Total Bilirubin AST ALT Alkaline Phosphatase Total Creatine Kinase Total Protein Albumin Globulin Albumin/Globulin Ratio Lipase Urine Color Urine Clarity Urine pH Ur Specific [place] Urine Protein Urine Glucose (UA) Urine Ketones Urine Occult Blood Urine Nitrite Urine Bilirubin Urine Urobilinogen Ur Leukocyte Esterase Ur Microscopic Review Urine Culture Comments Urine HCG, Qual Rheumatoid Factor NEGATIVE 02/28/20 02/28/20 22:50 22:56 WBC RBC Hgb Hct MCV MCH MCHC RDW Plt Count MPV Neut # (Auto) Lymph # (Auto) Grand # (Auto) Eos # (Auto) Baso # (Auto) Absolute Nucleated RBC Total Counted Band Neuts % (Manual) Abnorm Lymph % (Manual) Nucleated RBC % Neutrophils # (Manual) Lymphocytes # (Manual) Monocytes # (Manual) Eosinophils # (Manual) Basophils # (Manual) Differential Comment WBC Morphology Platelet Estimate Platelet Morphology RBC Morph Micro Appear ESR Sodium 142 Potassium 3.6 Chloride 105 Carbon Dioxide 25 Anion Gap 12.0 BUN 17 Creatinine 0.9 Estimated GFR (MDRD) 74 L Glucose 100 Calcium 9.0 Total Bilirubin 0.4 AST 21 ALT 22 Alkaline Phosphatase 82 Total Creatine Kinase 102 Total Protein 7.5 Albumin 4.1 Globulin 3.4 Albumin/Globulin Ratio 1.2 Lipase 45 Urine Color YELLOW Urine Clarity CLEAR Urine pH 5.5 Ur Specific [place] >=1.030 H Urine Protein NEGATIVE Urine Glucose (UA) NEGATIVE Urine Ketones NEGATIVE Urine Occult Blood TRACE-INTA Urine Nitrite NEGATIVE Urine Bilirubin NEGATIVE Urine Urobilinogen 0.2 (NORMAL) Ur Leukocyte Esterase NEGATIVE Ur Microscopic Review NOT INDICATED Urine Culture Comments NOT INDICATED Urine HCG, Qual NEGATIVE Rheumatoid Factor PD MEDICAL DECISION MAKING - ED course Complexity details: reviewed results (no rhabdo, renal function okay, lytes okay. some elevation WBCs, nonspecific. ESR normal. ), considered differential (feeling lightheaded, slight confused, and diffuse muscle aches. Consider viral illness, immune activation, or med side effect (on Lyrica for 1 month). ), d/w patient Departure - Departure Disposition: 01 Home, Self Care Clinical Impression: Muscle pain, Light-headed feeling Condition: Stable Record reviewed to determine appropriate education?: Yes Instructions: ED Muscle Aching Follow-Up: Mag Asencio PA [Primary Care Provider] - Prescriptions: Meloxicam 7.5 mg PO BID #30 tablet Hydrocodone/Acetaminophen [[place] 5-325 Tablet] 1 each PO Q6H PRN #18 tablet PRN Reason: Pain Comments: Your immune markers of sed rate and rheumatoid factor are negative. Your white count is slightly elevated so there may be some small infection going on that could correlate with your diarrhea and be causing a flare of your fibromyalgia. Alternatively these could all be side effects of the Lyrica particularly the lightheadedness and some increased muscle pains. There is no signs of muscle breakdown on your blood test. I would suggest decreasing your Lyrica to once daily for the next week or so. A dded an anti-inflammatory of meloxicam twice daily with food. To that add Tylenol or hydrocodone if needed for pain. Follow-up with your primary care in about a week or so, call for an appointment. Discharge Date/Time: 02/29/20 00:34
[2020-02-28] MEDS ORDERED: HYDROcod/ACETAM 5/325 MG TABLET PO STA (22:43)
[2020-02-28] MEDS ORDERED: CHERRY SYRUP 10 ML UDC PO ONE (22:43)
[2020-02-28] MEDS ORDERED: DEXAMETHASONE 10 MG/ML VIAL PO STA (22:43)
[2020-02-28 23:01] LABS: BASOPHILS % (AUTO) 0.8 %; EOSINOPHILS % (AUTO) 12.9 %; HGB - HEMOGLOBIN 13.4 g/dL (12.0-16.0); LYMPHOCYTES % (AUTO) 25.2 %; MEAN CORPUSCULAR HEMOGLOBIN 28.4 pg (27.0-31.0); MEAN CORPUSCULAR HGB CONC 32.3 g/dL (32.0-36.0); MEAN CORPUSCULAR VOLUME 87.9 fL (81.0-99.0); MEAN PLATELET VOLUME 10.1 fL (7.9-10.8); MONOCYTES % (AUTO) 8.4 %; NEUTROPHILS % (AUTO) 52.3 %; PLT - PLATELET COUNT 394 10^3/uL (130-450); RED BLOOD COUNT 4.72 10^6/uL (4.20-5.40); WHITE BLOOD COUNT 13.5 x10^3/uL (4.8-10.8)
[2020-02-28 23:08] LABS: ABNORMAL LYMPHS % (MANUAL) 0 %; BAND NEUTROPHILS % (MANUAL) 0 %
[2020-02-28 23:13] LABS: ALBUMIN 4.1 g/dL (3.2-5.5); ALBUMIN/GLOBULIN RATIO 1.2 (1.0-2.2); BILIRUBIN,TOTAL 0.4 mg/dL (0.2-1.0); CREATININE 0.9 mg/dL (0.4-1.0); TOTAL PROTEIN 7.5 g/dL (6.7-8.2)
[2020-02-28 23:13] LABS: BILIRUBIN,URINE NEGATIVE (NEGATIVE); GLUCOSE, URINE (UA) NEGATIVE (NEGATIVE); KETONES,URINE (UA) NEGATIVE (NEGATIVE); LEUKOCYTE ESTERASE, URINE NEGATIVE (NEGATIVE); NITRITE,URINE NEGATIVE (NEGATIVE); OCCULT BLOOD,URINE TRACE-INTA (NEGATIVE); PH,URINE 5.5 PH (5.0-7.5); PROTEIN,URINE NEGATIVE (NEGATIVE); UROBILINOGEN,URINE 0.2 (NORMAL) E.U./dL (NORMAL)
[2020-02-28 23:15] LABS: CLARITY,URINE CLEAR (CLEAR)
[2020-02-28 23:16] LABS: HCG UR QUAL NEGATIVE
[2020-02-28 23:25] LABS: BASOPHILS # (MANUAL) 0.3 10^3/uL (0-0.1); BASOPHILS % (MANUAL) 2 %; EOSINOPHILS # (MANUAL) 1.6 10^3/uL (0-0.7); LYMPHOCYTES # (MANUAL) 3.5 10^3/uL (1.5-3.5); LYMPHOCYTES % (MANUAL) 26 %; MONOCYTES # (MANUAL) 0.7 10^3/uL (0.0-1.0)
[2020-02-28 23:26] LABS: DIFFERENTIAL COMMENT MANUAL DIFFERENTIAL; PLATELET ESTIMATE, MANUAL NORMAL (130-450,000) (NORMAL); PLATELET MORPHOLOGY NORMAL APPEARANCE (NORMAL); RBC MORPHOLOGY (MULTIPLE) NORMAL APPEARANCE (NORMAL)
[2020-02-28 23:35] LABS: RHEUMATOID FACTOR NEGATIVE (Negative)
[2020-02-29] MEDS ORDERED: HYDROcod/ACET 5/325 Prepack 4 PO STA (00:13)
[2020-02-29 00:24] VITALS: BP 115/66
== END 2020-02-29 00:34 | disposition home or self-care (01) ==
LOC: ED 22:06
DX: M79.10 Myalgia, unspecified site (principal); R42 Dizziness and giddiness; Z86.711 Personal history of pulmonary embolism; Z79.01 Long term (current) use of anticoagulants
CPT/HCPCS: 36415; 80053; 81003; 81025; 82550; 83690; 85025; 85651; 86430; 99283; A9270; 81001; 87086

== ENCOUNTER 2020-03-26 22:26 | Outpatient (CLI) | payer OTHER | END 2020-03-26 22:27 | disposition critical access hospital (66) | LOC: EMS 22:26 | PROVIDERS: ATTEND Surgery | DX: R51 Headache (principal); R52 Pain, unspecified; H53.2 Diplopia | CPT/HCPCS: A0425; A0429 ==

== ENCOUNTER 2020-03-26 22:43 | Emergency (ER) | payer OTHER ==
--- NOTE | 2020-03-26 22:52 | ED Physician Documentation ---
History of Present Illness - Stated complaint Stated Complaint: RANDALL - History obtained from History obtained from: Patient - Additonal information Additional information: Patient is a 29-year-old female presents with multiple complaints primarily she is complaining of a headache and vertigo. Patient reports that she is being treated for a dental infection with clindamycin. Patient reports this morning when she woke up she sat up and immediately started felt like the room was spinning she also reports a mild headache that feels similar to her previous headaches. Her headache is not sudden in onset not maximum in intensity not the worst headache of her life. She reports she does have a follow-up appointment with her primary care provider tomorrow morning.She denies any fevers neck pain or rashes. Denies any slurred speech or unilateral weakness. Review of Systems Constitutional: reports: Reviewed and negative Eyes: reports: Reviewed and negative Ears: reports: Reviewed and negative Nose: reports: Reviewed and negative Throat: reports: Reviewed and negative Cardiac: reports: Reviewed and negative Respiratory: reports: Reviewed and negative GI: reports: Reviewed and negative : reports: Reviewed and negative Skin: reports: Reviewed and negative Musculoskeletal: reports: Reviewed and negative Neurologic: reports: Headache, Other (vertigo) Psychiatric: reports: Reviewed and negative Endocrine: reports: Reviewed and negative Immunocompromised: reports: Reviewed and negative PD PAST MEDICAL HISTORY - Past Medical History Cardiovascular: None, Pulmonary embolism Respiratory: Asthma Neuro: Headaches, Migraines Endocrine/Autoimmune: None GI: None 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 HEENT: None Psych: None Musculoskeletal: None Derm: None - Past Surgical History Past Surgical History: Yes General: Cholecystectomy, Appendectomy, Colonoscopy HEENT: Tonsil/Adenoidectomy - Present Medications Home Medications: Ambulatory Orders Medication Instructions Recorded Confirmed Sertraline [Zoloft] 50 mg PO DAILY 03/06/19 10/20/19 Albuterol Sulfate [Albuterol 2 puffs IH Q4HR PRN 04/30/19 10/20/19 Sulfate Hfa] Levothyroxine Sodium 1 tab PO DAILY 04/30/19 10/20/19 Propranolol [Inderal] 20 mg PO DAILY 09/15/19 10/20/19 Rivaroxaban [Xarelto] 20 mg PO DAILY 09/15/19 10/20/19 predniSONE [Prednisone] 40 mg PO DAILY #10 tablet 01/04/20 Hydrocodone/Acetaminophen [[place] 1 each PO Q6H PRN #18 tablet 02/29/20 5-325 Tablet] Meloxicam 7.5 mg PO BID #30 tablet 02/29/20 - Allergies Allergies/Adverse Reactions: Allergies Allergy/AdvReac Type Severity Reaction Status Date / Time cefaclor [From Ceclor] Allergy Unknown Verified 02/28/20 22:09 metoclopramide [From Reglan] Allergy Unknown Verified 02/28/20 22:09 amoxicillin [From Augmentin] AdvReac Hives Verified 02/28/20 22:09 clavulanic acid AdvReac Hives Verified 02/28/20 22:09 [From Augmentin] ketorolac [From Toradol] AdvReac Headache Verified 02/28/20 22:09 Sulfa (Sulfonamide AdvReac Nausea Verified 02/28/20 22:09 Antibiotics) tramadol AdvReac Headache Verified 02/28/20 22:09 - Social History Does the pt smoke?: No Smoking Status: Never smoker Does the pt drink ETOH?: No Does the pt have substance abuse?: No - Immunizations Immunizations are current?: Yes - POLST Patient has POLST: No PD ED PE NORMAL - Vitals Vital signs reviewed: Yes - General General: Alert and oriented X 3, No acute distress, Well developed/nourished - HEENT HEENT: Atraumatic, PERRL, EOMI, Ears normal, Moist mucous membranes, Pharynx benign - Neck Neck: Supple, no meningeal sign, No JVD, No bruit - Cardiac Cardiac: RRR, No murmur, Strong equal pulses - Respiratory Respiratory: No respiratory distress, Clear bilaterally - Abdomen Abdomen: Normal bowel sounds, Soft, Non tender, Non distended, No organomegaly - Back Back: No CVA TTP, No spinal TTP - Derm Derm: Normal color, Warm and dry - Extremities Extremities: No deformity, No tenderness to palpate, Normal ROM s pain, No edema, No calf tenderness / cord - Neuro Neuro: Alert and oriented X 3, assistant distribution manager 2-12 intact, No motor deficit, No sensory deficit, Normal speech, Other (Positive Lanette-Hallpike maneuver, there is fatigable horizontal nystagmus no vertical nystagmus negative hints exam) - Psych Psych: Normal mood, Normal affect - Free text exam Free text exam: Patient's neurological exam shows no focal deficits she has fatigable horizontal nystagmus no vertical nystagmus negative hints exam no facial droop no pronator drift no unilateral weakness normal [id number] normal [id number] normal rapid alternating movements. Results - Vitals Vitals: Vital Signs - 24 hr 03/26/20 22:52 Temperature 37.2 C Heart Rate 65 Respiratory 16 Rate Blood Pressure 120/80 O2 Saturation 96 Oxygen O2 Source Room air PD MEDICAL DECISION MAKING - ED course Complexity details: considered differential, d/w patient, other (Patient's history and physical exam is consistent with peripheral vertigo) ED course: Patient's presentation consistent with peripheral vertigo. She will be treated with oral meclizine she has a mild headache she reports typically she takes oral Compazine will provide her with 1 dose of oral Compazine here she has follow-up at 7 AM today. She should be rechecked today either by her primary care provider or return to the emergency department for reevaluation if she is not improving over the next 12 to 24 hours. Departure - Departure Disposition: 01 Home, Self Care Clinical Impression: Vertigo Migraine Qualifiers: Migraine type: other Status migrainosus presence: without status migrainosus Intractability: not intractable Qualified Code(s): G43.809 - Other migraine, not intractable, without status migrainosus Condition: Stable Instructions: ED Headache Migraine, ED Vertigo Unspecified Follow-Up: your, doctor [Other] - 03/27/20 Comments: follow up with your physician today. rest and hydrate well. take over the counter meclizine as directed for vertigo.
[2020-03-26] MEDS ORDERED: MECLIZINE 12.5 MG TABLET PO STA (23:17)
[2020-03-27] MEDS ORDERED: PROCHLORPERAZINE 5 MG TABLET PO STA (00:15)
[2020-03-27 00:37] VITALS: BP 124/76
== END 2020-03-27 00:45 | disposition home or self-care (01) ==
LOC: EDUNIT# → ED 22:43
DX: H81.399 Other peripheral vertigo, unspecified ear (principal); G43.809 Other migraine, not intractable, without status migrainosus
CPT/HCPCS: 99283; A9270

== ENCOUNTER 2020-04-19 12:20 | Outpatient (CLI) | payer OTHER ==
--- NOTE | 2020-04-19 14:03 | MRI Report ---
PROCEDURE: Brain W/O INDICATIONS: VISION CHANGES, MIGRAINES TECHNIQUE: Noncontrast axial T1 spin echo, axial T2 fast spin echo, sagittal and axial FLAIR, coronal T2 fast sp in echo, axial gradient echo, axial diffusion and ADC through the brain. COMPARISON: None. FINDINGS: Image quality: Partially degraded by motion artifact. CSF Spaces: Basal cisterns are patent. No extra-axial fluid collections. Ventricles are normal in size and shape. Brain: No intracranial masses or hemorrhage. Mathur/white matter interface is normal. Brainstem appe ars normal. Diffusion-weighted images demonstrate no acute ischemic insult. No chronic ischemic ins ults. Normal intravascular flow voids are present. Skull and face: Calvarium has normal marrow signal. Orbits appear normal. There is a 25 mm diamete r well-circumscribed encapsulated focus of high T1/T2 signal intensity within the right frontal subcu taneous fat. Sinuses: Sinuses and mastoids are clear. IMPRESSION: 1. Mild volume loss and small vessel ischemic disease. 2. No acute process. No explanation for visual changes or migraine. 3. Small right frontal subcutaneous scalp lipoma. Reviewed by: Mihaela Cintron MD on 04/19/2020 2:02 PM PDT Approved by: Mihaela Cintron MD on 04/19/2020 2:02 PM PDT Station ID: [id number]
== END 2020-04-19 12:21 | disposition home or self-care (01) ==
LOC: DI 12:20
PROVIDERS: ATTEND Physician Assistant
DX: H53.9 Unspecified visual disturbance (principal); G43.909 Migraine, unspecified, not intractable, without status migrainosus; I67.82 Cerebral ischemia; D17.0 Benign lipomatous neoplasm of skin and subcutaneous tissue of head, face and neck
CPT/HCPCS: 70551

== ENCOUNTER 2020-04-20 00:21 | Outpatient (CLI) | payer OTHER | END 2020-04-20 00:22 | disposition critical access hospital (66) | LOC: EMS 00:21 | PROVIDERS: ATTEND Surgery | DX: R07.9 Chest pain, unspecified (principal); R06.02 Shortness of breath; R11.0 Nausea | CPT/HCPCS: A0425; A0427 ==

== ENCOUNTER 2020-04-20 00:42 | Emergency (ER) | payer OTHER ==
--- NOTE | 2020-04-20 00:41 | ED Physician Documentation ---
History of Present Illness - Stated complaint Stated Complaint: CP, SOA, HZ OF PE - History obtained from History obtained from: Patient - Additonal information Additional information: 29-year-old female arrives by ambulance with multiple complaints to include pain everywhere and shortness of breath that is resolved. She does have a history of pulmonary embolism on Xarelto and recent diagnosis of pneumonia for which she is completed antibiotic she denies cough or fever or hemoptysis or lower extremity swelling and is taking Xarelto as directed. Review of Systems Constitutional: reports: Reviewed and negative Eyes: reports: Reviewed and negative Ears: reports: Reviewed and negative Nose: reports: Reviewed and negative Throat: reports: Reviewed and negative Cardiac: reports: Reviewed and negative Respiratory: reports: Dyspnea GI: reports: Reviewed and negative : reports: Reviewed and negative Skin: reports: Reviewed and negative Musculoskeletal: reports: Other (Pain everywhere) Neurologic: reports: Reviewed and negative Psychiatric: reports: Reviewed and negative Endocrine: reports: Reviewed and negative Immunocompromised: reports: Reviewed and negative PD PAST MEDICAL HISTORY - Present Medications Home Medications: Ambulatory Orders Medication Instructions Recorded Confirmed Sertraline [Zoloft] 50 mg PO DAILY 03/06/19 10/20/19 Albuterol Sulfate [Albuterol 2 puffs IH Q4HR PRN 04/30/19 10/20/19 Sulfate Hfa] Levothyroxine Sodium 1 tab PO DAILY 04/30/19 10/20/19 Propranolol [Inderal] 20 mg PO DAILY 09/15/19 10/20/19 Rivaroxaban [Xarelto] 20 mg PO DAILY 09/15/19 10/20/19 predniSONE [Prednisone] 40 mg PO DAILY #10 tablet 01/04/20 Hydrocodone/Acetaminophen [[place] 1 each PO Q6H PRN #18 tablet 02/29/20 5-325 Tablet] Meloxicam 7.5 mg PO BID #30 tablet 02/29/20 - Allergies Allergies/Adverse Reactions: Allergies Allergy/AdvReac Type Severity Reaction Status Date / Time cefaclor [From Ceclor] Allergy Unknown Verified 04/20/20 00:54 metoclopramide [From Reglan] Allergy Unknown Verified 04/20/20 00:54 amoxicillin [From Augmentin] AdvReac Hives Verified 04/20/20 00:54 clavulanic acid AdvReac Hives Verified 04/20/20 00:54 [From Augmentin] ketorolac [From Toradol] AdvReac Headache Verified 04/20/20 00:54 Sulfa (Sulfonamide AdvReac Nausea Verified 04/20/20 00:54 Antibiotics) tramadol AdvReac Headache Verified 04/20/20 00:54 PD ED PE NORMAL - Vitals Vital signs reviewed: Yes - General General: Alert and oriented X 3, No acute distress, Well developed/nourished - HEENT HEENT: PERRL, Moist mucous membranes - Neck Neck: Supple, no meningeal sign, No adenopathy - Cardiac Cardiac: RRR, No murmur, Strong equal pulses - Respiratory Respiratory: No respiratory distress, Clear bilaterally - Abdomen Abdomen: Normal bowel sounds, Soft, Non tender, Non distended, No organomegaly - Female Female : Deferred - Rectal Rectal: Deferred - Back Back: No CVA TTP, No spinal TTP - Derm Derm: Normal color, Warm and dry, No rash - Extremities Extremities: No deformity, No tenderness to palpate, Normal ROM s pain, No edema, No calf tenderness / cord - Neuro Neuro: Alert and oriented X 3, lidar technician 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, No motor deficit, No sensory deficit, Normal speech - Psych Psych: Normal mood, Normal affect Results - Vitals Vitals: Vital Signs - 24 hr 04/20/20 04/20/20 04/20/20 00:51 00:56 01:24 Temperature 36.6 C Heart Rate 85 82 77 Respiratory 17 18 20 Rate Blood Pressure 142/104 H 120/86 H O2 Saturation 100 96 96 04/20/20 04/20/20 04/20/20 02:05 02:39 03:08 Temperature Heart Rate 85 70 Respiratory 17 17 16 Rate Blood Pressure 114/69 O2 Saturation 97 97 04/20/20 03:09 Temperature Heart Rate Respiratory 16 Rate Blood Pressure O2 Saturation Oxygen O2 Source Room air - EKG (time done) 00:53 Rate: Other (no stemi) - Labs Labs: Laboratory Tests 04/20/20 04/20/20 04/20/20 00:45 01:05 01:05 WBC 12.7 H RBC 4.72 Hgb 13.5 Hct 41.9 MCV 88.8 MCH 28.6 MCHC 32.2 RDW 18.3 H Plt Count 325 MPV 10.3 Neut # (Auto) 7.4 H Lymph # (Auto) 3.9 H [place] # (Auto) 1.3 H Eos # (Auto) 0.1 Baso # (Auto) 0.1 Absolute Nucleated RBC 0.00 Nucleated RBC % 0.0 PT 13.5 H INR 1.2 APTT 34.4 H Sodium Potassium Chloride Carbon Dioxide Anion Gap BUN Creatinine Estimated GFR (MDRD) Glucose Calcium Total Bilirubin AST ALT Alkaline Phosphatase Total Creatine Kinase Troponin I High Sens B-Natriuretic Peptide Total Protein Albumin Globulin Albumin/Globulin Ratio Lipase TSH Urine Color YELLOW Urine Clarity CLEAR Urine pH 6.0 Ur Specific [place] 1.025 Urine Protein NEGATIVE Urine Glucose (UA) NEGATIVE Urine Ketones NEGATIVE Urine Occult Blood SMALL H Urine Nitrite NEGATIVE Urine Bilirubin NEGATIVE Urine Urobilinogen 0.2 (NORMAL) Ur Leukocyte Esterase NEGATIVE Urine RBC 0-5 Urine WBC 0-3 Ur Squamous Epith Cells FEW Squamous Urine Bacteria Rare Ur Microscopic Review INDICATED Urine Culture Comments NOT INDICATED Urine HCG, Qual NEGATIVE Salicylates Urine Opiates Screen NEGATIVE Ur Oxycodone Screen NEGATIVE Urine Methadone Screen NEGATIVE Ur Propoxyphene Screen NEGATIVE Acetaminophen Ur Barbiturates Screen NEGATIVE Ur Tricyclics Screen NEGATIVE Ur Phencyclidine Scrn NEGATIVE Ur Amphetamine Screen NEGATIVE U Methamphetamines Scrn NEGATIVE U Benzodiazepines Scrn POSITIVE H Urine Cocaine Screen NEGATIVE U Cannabinoids Screen POSITIVE H Ethyl Alcohol 04/20/20 04/20/20 04/20/20 01:05 01:05 01:05 WBC RBC Hgb Hct MCV MCH MCHC RDW Plt Count MPV Neut # (Auto) Lymph # (Auto) [place] # (Auto) Eos # (Auto) Baso # (Auto) Absolute Nucleated RBC Nucleated RBC % PT INR APTT Sodium 142 Potassium 3.9 Chloride 108 Carbon Dioxide 27 Anion Gap 7.0 BUN 22 H Creatinine 0.9 Estimated GFR (MDRD) 74 L Glucose 99 Calcium 9.1 Total Bilirubin 0.2 AST 24 ALT 32 Alkaline Phosphatase 78 Total Creatine Kinase 35 Troponin I High Sens 6.2 B-Natriuretic Peptide 75 Total Protein 6.7 Albumin 3.7 Globulin 3.0 Albumin/Globulin Ratio 1.2 Lipase 42 TSH Urine Color Urine Clarity Urine pH Ur Specific [place] Urine Protein Urine Glucose (UA) Urine Ketones Urine Occult Blood Urine Nitrite Urine Bilirubin Urine Urobilinogen Ur Leukocyte Esterase Urine RBC Urine WBC Ur Squamous Epith Cells Urine Bacteria Ur Microscopic Review Urine Culture Comments Urine HCG, Qual Salicylates < 6.0 Urine Opiates Screen Ur Oxycodone Screen Urine Methadone Screen Ur Propoxyphene Screen Acetaminophen < 10 L Ur Barbiturates Screen Ur Tricyclics Screen Ur Phencyclidine Scrn Ur Amphetamine Screen U Methamphetamines Scrn U Benzodiazepines Scrn Urine Cocaine Screen U Cannabinoids Screen Ethyl Alcohol < 5.0 04/20/20 01:05 WBC RBC Hgb Hct MCV MCH MCHC RDW Plt Count MPV Neut # (Auto) Lymph # (Auto) [place] # (Auto) Eos # (Auto) Baso # (Auto) Absolute Nucleated RBC Nucleated RBC % PT INR APTT Sodium Potassium Chloride Carbon Dioxide Anion Gap BUN Creatinine Estimated GFR (MDRD) Glucose Calcium Total Bilirubin AST ALT Alkaline Phosphatase Total Creatine Kinase Troponin I High Sens B-Natriuretic Peptide Total Protein Albumin Globulin Albumin/Globulin Ratio Lipase TSH 4.86 Urine Color Urine Clarity Urine pH Ur Specific [place] Urine Protein Urine Glucose (UA) Urine Ketones Urine Occult Blood Urine Nitrite Urine Bilirubin Urine Urobilinogen Ur Leukocyte Esterase Urine RBC Urine WBC Ur Squamous Epith Cells Urine Bacteria Ur Microscopic Review Urine Culture Comments Urine HCG, Qual Salicylates Urine Opiates Screen Ur Oxycodone Screen Urine Methadone Screen Ur Propoxyphene Screen Acetaminophen Ur Barbiturates Screen Ur Tricyclics Screen Ur Phencyclidine Scrn Ur Amphetamine Screen U Methamphetamines Scrn U Benzodiazepines Scrn Urine Cocaine Screen U Cannabinoids Screen Ethyl Alcohol PD MEDICAL DECISION MAKING - ED course Complexity details: reviewed old records, reviewed results, re-evaluated p atient, considered differential, d/w patient ED course: 29-year-old female with a history of pulmonary embolism and pneumonia today she has a negative troponin negative chest x-ray negative EKG normal labs. She is on her percent on room air with no fever and no tachypnea or distress. An extensive long conversation with the patient's results encouraged her to follow- up with her primary care provider today for which she has agreed to do. Departure - Departure Disposition: 01 Home, Self Care Clinical Impression: SOB (shortness of breath) Condition: Stable Instructions: ED Dyspnea Shortness of Breath Follow-Up: Mag Asencio PA [Primary Care Provider] - 04/20/20 Comments: please call your primary care provider today to schedule a follow up. return to the emergency department with any concerns. Discharge Date/Time: 04/20/20 03:15
[2020-04-20 01:13] LABS: MUDS CUTOFF CONCENTRATIONS CUTOFF CONC BELOW:
[2020-04-20 01:15] LABS: BASOPHILS # (AUTO) 0.1 10^3/uL (0.0-0.1); BASOPHILS % (AUTO) 0.9 %; EOSINOPHILS # (AUTO) 0.1 10^3/uL (0.0-0.7); EOSINOPHILS % (AUTO) 0.5 %; HGB - HEMOGLOBIN 13.5 g/dL (12.0-16.0); LYMPHOCYTES # (AUTO) 3.9 10^3/uL (1.5-3.5); LYMPHOCYTES % (AUTO) 30.6 %; MEAN CORPUSCULAR HEMOGLOBIN 28.6 pg (27.0-31.0); MEAN CORPUSCULAR HGB CONC 32.2 g/dL (32.0-36.0); MEAN CORPUSCULAR VOLUME 88.8 fL (81.0-99.0); MEAN PLATELET VOLUME 10.3 fL (7.9-10.8); MONOCYTES # (AUTO) 1.3 10^3/uL (0.0-1.0); MONOCYTES % (AUTO) 9.8 %; NEUTROPHILS # (AUTO) 7.4 10^3/uL (1.5-6.6); NEUTROPHILS % (AUTO) 57.9 %; PLT - PLATELET COUNT 325 10^3/uL (130-450); RED BLOOD COUNT 4.72 10^6/uL (4.20-5.40); RED CELL DISTRIBUTION WIDTH 18.3 % (12.0-15.0); WHITE BLOOD COUNT 12.7 x10^3/uL (4.8-10.8)
[2020-04-20 01:17] LABS: BILIRUBIN,URINE NEGATIVE (NEGATIVE); GLUCOSE, URINE (UA) NEGATIVE (NEGATIVE); KETONES,URINE (UA) NEGATIVE (NEGATIVE); LEUKOCYTE ESTERASE, URINE NEGATIVE (NEGATIVE); NITRITE,URINE NEGATIVE (NEGATIVE); OCCULT BLOOD,URINE SMALL (NEGATIVE); PROTEIN,URINE NEGATIVE (NEGATIVE); UROBILINOGEN,URINE 0.2 (NORMAL) E.U./dL (NORMAL)
[2020-04-20 01:18] LABS: CLARITY,URINE CLEAR (CLEAR); HCG UR QUAL NEGATIVE
[2020-04-20 01:19] LABS: INR 1.2 (0.8-1.2); PT - PROTHROMBIN TIME 13.5 secs (9.9-12.6)
[2020-04-20 01:24] LABS: BACTERIA,URINE Rare /HPF (None Seen); RBC,URINE 0-5 /HPF (0-5); SQUAMOUS EPITHELIAL CELL,UR FEW Squamous (<= Few)
[2020-04-20 01:26] LABS: AMPHETAMINE SCREEN,URINE NEGATIVE (NEGATIVE); BENZODIAZEPINES SCREEN, URINE POSITIVE (NEGATIVE); COCAINE SCREEN URINE NEGATIVE (NEGATIVE); METHADONE SCREEN, URINE NEGATIVE (NEGATIVE); METHAMPHETAMINES SCREEN, URINE NEGATIVE (NEGATIVE); OPIATE SCREEN, URINE NEGATIVE (NEGATIVE); OXYCODONE SCREEN, URINE NEGATIVE (NEGATIVE); PROPOXYPHENE SCREEN, URINE NEGATIVE (NEGATIVE); TRICYCLIC ANTIDEPRESSANT,URINE NEGATIVE (NEGATIVE)
[2020-04-20 01:28] LABS: ACETAMINOPHEN < 10 ug/mL (10-30); ALBUMIN 3.7 g/dL (3.2-5.5); ALBUMIN/GLOBULIN RATIO 1.2 (1.0-2.2); ALKALINE PHOSPHATASE 78 IU/L (42-121); ALT ALANINE AMINOTRANSFERASE 32 IU/L (10-60); AST ASPARTATE AMINOTRANSFERASE 24 IU/L (10-42); BILIRUBIN,TOTAL 0.2 mg/dL (0.2-1.0); BUN - BLOOD UREA NITROGEN 22 mg/dL (6-20); CALCIUM 9.1 mg/dL (8.5-10.3); CARBON DIOXIDE - CO2 27 mmol/L (21-32); CHLORIDE 108 mmol/L (101-111); CK- CREATINE KINASE 35 IU/L (22-269); CREATININE 0.9 mg/dL (0.4-1.0); GLUCOSE 99 mg/dL (70-100); LIPASE 42 U/L (22-51); PARTIAL THROMBOPLASTIN TIME 34.4 secs (24.9-33.3); SALICYLATE < 6.0 mg/dL; SODIUM 142 mmol/L (135-145); TOTAL PROTEIN 6.7 g/dL (6.7-8.2)
[2020-04-20 03:09] VITALS: BP 114/69
--- NOTE | 2020-04-20 08:28 | XRAY Report ---
PROCEDURE: Chest 1 View X-Ray INDICATIONS: sob TECHNIQUE: One view of the chest was acquired. COMPARISON: None. FINDINGS: Surgical changes and devices: None. Lungs and pleura: No pleural effusions or pneumothorax. Lungs are clear. Mediastinum: Mediastinal contours appear normal. Heart size is normal. Bones and chest wall: No suspicious bony lesions. Overlying soft tissues appear unremarkable. IMPRESSION: No acute disease. Reviewed by: Dario Tello MD on 04/20/2020 8:27 AM PDT Approved by: Dario Tello MD on 04/20/2020 8:27 AM PDT Station ID: [id number]
== END 2020-04-20 03:15 | disposition home or self-care (01) ==
LOC: EDUNIT# → EDBD → ED 00:42
DX: R06.02 Shortness of breath (principal)
CPT/HCPCS: 36415; 71045; 80053; 80306; 80307; 80320; 80329; 81001; 81003; 81025; 82550; 83690; 83880; 84443; 84484; 85025; 85610; 85730; 87086; 93005; 99283; 99284

== ENCOUNTER 2020-04-25 15:15 | Outpatient (CLI) | payer OTHER ==
--- NOTE | 2020-04-26 09:00 | Ultrasound Report ---
PROCEDURE: Ext Limited Non Vascular INDICATIONS: BENIGN LIPOMATOUS CRUZ OF SKIN TECHNIQUE: Real-time scanning was performed of the left forearm, with image documentation. COMPARISON: None. FINDINGS: Mildly prominent subcutaneous fat is seen at the patient indicated palpable area of concer n without a definite circumscribed lipoma. No suspicious soft tissue mass is seen. IMPRESSION: Mildly prominent subcutaneous fat at the patient indicated an area of palpable abnormality without a well-circumscribed lipoma. No suspicious soft tissue mass is seen. Reviewed by: Hesham Hinson MD on 04/26/2020 8:58 AM PDT Approved by: Hesham Hinson MD on 04/26/2020 8:58 AM PDT Station ID: [id number]
== END 2020-04-25 15:16 | disposition home or self-care (01) ==
LOC: DI 15:15
PROVIDERS: ATTEND Physician Assistant
DX: D17.22 Benign lipomatous neoplasm of skin and subcutaneous tissue of left arm (principal)
CPT/HCPCS: 76882

== ENCOUNTER 2020-05-05 13:48 | Outpatient (CLI) | payer OTHER ==
[2020-05-05 18:45] LABS: ALBUMIN 3.9 g/dL (3.2-5.5); ALBUMIN/GLOBULIN RATIO 1.2 (1.0-2.2); BILIRUBIN,TOTAL 0.4 mg/dL (0.2-1.0); CALCIUM 8.9 mg/dL (8.5-10.3); CREATININE 0.8 mg/dL (0.4-1.0); TOTAL PROTEIN 7.2 g/dL (6.7-8.2)
== END 2020-05-05 23:59 | disposition home or self-care (01) ==
LOC: LAB.WCP 13:48
PROVIDERS: ATTEND Physician Assistant
DX: Z79.899 Other long term (current) drug therapy (principal)
CPT/HCPCS: 36415; 80053

== ENCOUNTER 2020-11-01 21:01 | Outpatient (CLI) | payer OTHER | END 2020-11-01 21:02 | disposition critical access hospital (66) | LOC: EMS 21:01 | PROVIDERS: ATTEND Emergency Medicine | DX: S09.90XA Unspecified injury of head, initial encounter (principal); R51.9 Headache, unspecified; W01.0XXA Fall on same level from slipping, tripping and stumbling without subsequent striking against object, initial encounter; Y92.009 Unspecified place in unspecified non-institutional (private) residence as the place of occurrence of the external cause | CPT/HCPCS: A0425; A0429 ==

== ENCOUNTER 2020-11-01 21:23 | Emergency (ER) | payer OTHER ==
[2020-11-01] MEDS ORDERED: ONDANSETRON 4 MG/2 ML VIAL IVP STA (21:36)
[2020-11-01] MEDS ORDERED: SODIUM CHLORIDE 0.9% 1,000 ML IV STA (21:36)
[2020-11-01] MEDS ORDERED: HYDROmorphone 1 MG/ML CARPUJECT IVP STA (21:36)
--- NOTE | 2020-11-01 21:38 | ED Physician Documentation ---
PD HPI HEAD INJURY - Stated complaint Stated Complaint: GLF - Chief complaint Chief Complaint: Trauma Hd/Nk - History obtained from History obtained from: Patient - History of Present Illness Mechanism of head injury: Fell (she was talking on phone and reportedly tripped on pile of laundry, fell backward and struck head. Dazed and confused right after. She states the family she was talking to said they her a thud as she fell, mid sentence, so did not seem to have symptoms prior. 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 No: Nausea / vomiting Symptoms worsen with: Palpation. No: Movement Contributing factors: Anticoagulated. No: Intoxicated Similar symptoms before: Has not had sx before Recently seen: Not recently seen Review of Systems Constitutional: denies: Fever, Chills Eyes: denies: Loss of vision, Photophobia Nose: denies: Rhinorrhea / runny nose, Congestion Throat: denies: Sore throat Cardiac: denies: Chest pain / pressure, Palpitations Respiratory: denies: Dyspnea, Cough GI: denies: Abdominal Pain, Nausea, Vomiting, Diarrhea Skin: denies: Abrasion (s), Laceration (s) Musculoskeletal: reports: Other (right 4th toe hurting after the fall.) Neurologic: reports: Headache. 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 : None HEENT: None Psych: None Musculoskeletal: None Derm: None - Past Surgical History Past Surgical History: Yes General: Cholecystectomy, Appendectomy, Colonoscopy HEENT: Tonsil/Adenoidectomy - Present Medications Home Medications: Ambulatory Orders Medication Instructions Recorded Confirmed Sertraline [Zoloft] 50 mg PO DAILY 03/06/19 09/20/20 Albuterol Sulfate [Albuterol 2 puffs IH Q4HR PRN 04/30/19 09/20/20 Sulfate Hfa] Levothyroxine Sodium 1 tab PO DAILY 04/30/19 09/20/20 Propranolol [Inderal] 20 mg PO DAILY 09/15/19 09/20/20 Rivaroxaban [Xarelto] 20 mg PO DAILY 09/15/19 09/20/20 predniSONE [Prednisone] 40 mg PO DAILY #10 tablet 01/04/20 09/20/20 Hydrocodone/Acetaminophen [[place] 1 each PO Q6H PRN #18 tablet 02/29/20 09/20/20 5-325 Tablet] Meloxicam 7.5 mg PO BID #30 tablet 02/29/20 09/20/20 - Allergies Allergies/Adverse Reactions: Allergies Allergy/AdvReac Type Severity Reaction Status Date / Time cefaclor [From Ceclor] Allergy Unknown Verified 11/01/20 21:34 metoclopramide [From Reglan] Allergy Unknown Verified 11/01/20 21:34 Sulfa (Sulfonamide AdvReac Unknown Nausea Verified 11/01/20 21:34 Antibiotics) amoxicillin [From Augmentin] AdvReac Hives Verified 11/01/20 21:34 clavulanic acid AdvReac Hives Verified 11/01/20 21:34 [From Augmentin] ketorolac [From Toradol] AdvReac Headache Verified 11/01/20 21:34 tramadol AdvReac Headache Verified 11/01/20 21:34 - Social History Does the pt smoke?: No Smoking Status: Never smoker Does the pt drink ETOH?: No Does the pt have substance abuse?: No - Immunizations Immunizations are current?: Yes - POLST Patient has POLST: No PD ED PE NORMAL - Vitals Vital signs reviewed: Yes - General General: Alert and oriented X 3, No acute distress, Well developed/nourished - HEENT HEENT: Other (tender mid occiput scalp. No lacerations. ) - Neck Neck: No bony TTP - Cardiac Cardiac: RRR, No murmur - Respiratory Respiratory: Clear bilaterally - Abdomen Abdomen: Soft, Non tender - Back Back: No spinal TTP - Derm Derm: Normal color, Warm and dry - Extremities Extremities: Other (right 4th toe tender with some swelling proximal phalanx. No angulation. Good color at tip. ) - Neuro Neuro: Alert and oriented X 3, No motor deficit, No sensory deficit, Normal speech Results - Vitals Vitals: Vital Signs - 24 hr 11/01/20 11/01/2021 21:29 23:08 23:19 Temperature 37.4 C 37.4 C 37.4 C Heart Rate 75 71 71 Respiratory 14 15 15 Rate Blood Pressure 130/85 H 127/87 H 127/87 H O2 Saturation 100 100 100 Oxygen O2 Source Room air - EKG (time done) 22:06 Rate: Rate (enter#) (71) Rhythm: NSR [place]: Normal Intervals: Normal OK QRS: Normal Ischemia: Normal ST segments Other comments: Other comments (some baseline artifact/tremor. ) - Labs Labs: Laboratory Tests 11/01/20 11/01/20 11/01/20 22:07 22:07 22:07 WBC 13.7 H RBC 5.18 Hgb 15.4 Hct 47.8 H MCV 92.3 MCH 29.7 MCHC 32.2 RDW 15.5 H Plt Count 463 H MPV 10.4 Neut # (Auto) 10.2 H Lymph # (Auto) 2.2 [place] # (Auto) 0.6 Eos # (Auto) 0.5 Baso # (Auto) 0.1 Absolute Nucleated RBC 0.00 Nucleated RBC % 0.0 PT 13.9 H INR 1.3 H APTT 30.7 Sodium 139 Potassium 3.9 Chloride 100 L Carbon Dioxide 24 Anion Gap 15.0 H BUN 16 Creatinine 0.8 Estimated GFR (MDRD) 85 L Glucose 126 H Calcium 10.3 Magnesium 2.0 Total Bilirubin 0.4 AST 20 ALT 17 Alkaline Phosphatase 81 Total Protein 8.2 Albumin 4.4 Globulin 3.8 Albumin/Globulin Ratio 1.2 Lipase 30 Serum HCG, Qual 11/01/20 22:07 WBC RBC Hgb Hct MCV MCH MCHC RDW Plt Count MPV Neut # (Auto) Lymph # (Auto) [place] # (Auto) Eos # (Auto) Baso # (Auto) Absolute Nucleated RBC Nucleated RBC % PT INR APTT Sodium Potassium Chloride Carbon Dioxide Anion Gap BUN Creatinine Estimated GFR (MDRD) Glucose Calcium Magnesium Total Bilirubin AST ALT Alkaline Phosphatase Total Protein Albumin Globulin Albumin/Globulin Ratio Lipase Serum HCG, Qual NEGATIVE - Rads (name of study) head CT Radiology: Prelim report reviewed (no ICH nor acute process), See rad report right toes Radiology: Prelim report reviewed (nondisplaced fracture proximal phalanx 4th toe. ), See rad report PD MEDICAL DECISION MAKING - ED course Complexity details: reviewed results, re-evaluated patient, considered differential (does seem more trip and fall rather than syncope. Can check vitals, labs, ECG. to get CT head since on anticoags. ), d/w patient Departure - Departure Disposition: 01 Home, Self Care Clinical Impression: Anticoagulant long-term use Fall Qualifiers: Encounter type: initial encounter Qualified Code(s): W19.XXXA - Unspecified fall, initial encounter Head contusion Qualifiers: Encounter type: initial encounter Contusion of head detail: scalp Qualified Code(s): S00.03XA - Contusion of scalp, initial encounter Toe fracture, right Qualifiers: Encounter type: initial encounter Toe: lesser toe Fracture type: closed Phalanx: proximal Fracture alignment: nondisplaced Qualified Code(s): S92.514A - Nondisplaced fracture of proximal phalanx of right lesser toe(s), initial encounter for closed fracture Condition: Stable Record reviewed to determine appropriate education?: Yes Instructions: ED Fx Toe Closed Comments: You can bre tape or anchor tape as we discussed for the broken toe. Firm soled shoe to reduce the amount of motion with walking. Tylenol every 4 hours if needed for pains. Your head CT is normal without any signs of bleeding. Return if increasing headache or localized symptoms confusion repetitive vomiting or other symptoms as rarely there can be some delayed concussive or bleeding occurrence. Your heart rhythm and EKG and blood tests are normal as well as your blood pressure. No obvious sign or cause to suggest a fainting episode per se. Discharge Date/Time: 11/01/20 23:19
[2020-11-01 22:13] LABS: BASOPHILS # (AUTO) 0.1 10^3/uL (0.0-0.1); BASOPHILS % (AUTO) 0.7 %; EOSINOPHILS # (AUTO) 0.5 10^3/uL (0.0-0.7); EOSINOPHILS % (AUTO) 3.4 %; HCT - HEMATOCRIT 47.8 % (37.0-47.0); HGB - HEMOGLOBIN 15.4 g/dL (12.0-16.0); LYMPHOCYTES # (AUTO) 2.2 10^3/uL (1.5-3.5); LYMPHOCYTES % (AUTO) 16.1 %; MEAN CORPUSCULAR HEMOGLOBIN 29.7 pg (27.0-31.0); MEAN CORPUSCULAR HGB CONC 32.2 g/dL (32.0-36.0); MEAN CORPUSCULAR VOLUME 92.3 fL (81.0-99.0); MEAN PLATELET VOLUME 10.4 fL (7.9-10.8); MONOCYTES # (AUTO) 0.6 10^3/uL (0.0-1.0); MONOCYTES % (AUTO) 4.6 %; NEUTROPHILS # (AUTO) 10.2 10^3/uL (1.5-6.6); NEUTROPHILS % (AUTO) 74.8 %; PLT - PLATELET COUNT 463 10^3/uL (130-450); RED BLOOD COUNT 5.18 10^6/uL (4.20-5.40); RED CELL DISTRIBUTION WIDTH 15.5 % (12.0-15.0); WHITE BLOOD COUNT 13.7 x10^3/uL (4.8-10.8)
--- NOTE | 2020-11-01 22:17 | CT Report ---
PROCEDURE: HEAD WO INDICATIONS: fell, struck head, on DOAC TECHNIQUE: Noncontrast 4.5 mm thick angled axial sections acquired from the foramen magnum to the vertex. For r adiation dose reduction, the following was used: automated exposure control, adjustment of mA and/or kV according to patient size. COMPARISON: MRI brain dated 04/19/2020. FINDINGS: Image quality: Excellent. CSF spaces: Basal cisterns are patent. No extra-axial fluid collections. Ventricles are normal in size and shape. Brain: No midline shift. No intracranial masses or hemorrhage. [place]-white matter interface is norm al. Skull and face: Redemonstration of a small 2.5 cm circumscribed fat attenuation lesion over the right frontal scalp. Calvarium and visualized facial bones are intact, without suspicious lesions. Sinuses: Visualized sinuses and mastoids are clear. IMPRESSION: CT head without acute intracranial abnormalities or acute calvarial fracture Reviewed by: Len Lang MD on 11/01/2020 10:16 PM PDT Approved by: Len Lang MD on 11/01/2020 10:16 PM PDT Station ID: [id number]
[2020-11-01 22:24] LABS: ALBUMIN 4.4 g/dL (3.2-5.5); ALBUMIN/GLOBULIN RATIO 1.2 (1.0-2.2); BILIRUBIN,TOTAL 0.4 mg/dL (0.2-1.0); CALCIUM 10.3 mg/dL (8.5-10.3); CREATININE 0.8 mg/dL (0.4-1.0); POTASSIUM 3.9 mmol/L (3.5-5.0); TOTAL PROTEIN 8.2 g/dL (6.7-8.2)
[2020-11-01 22:26] LABS: INR 1.3 (0.8-1.2); PT - PROTHROMBIN TIME 13.9 secs (9.9-12.6)
[2020-11-01 22:33] LABS: PARTIAL THROMBOPLASTIN TIME 30.7 secs (24.9-33.3)
[2020-11-01] MEDS ORDERED: HYDROcod/ACETAM 5/325 MG TABLET PO STA (22:56)
[2020-11-01 23:02] LABS: HCG,QUALITATIVE BLOOD NEGATIVE
[2020-11-01 23:18] VITALS: BP 127/87
--- NOTE | 2020-11-02 08:13 | XRAY Report ---
PROCEDURE: Toe(s) RT INDICATIONS: fell, struck toe; pain TECHNIQUE: 3 views of the right toe(s) acquired. COMPARISON: None FINDINGS: Bones: Acute oblique fracture through fourth proximal phalangeal shaft is seen with minimal medial di splacement at fracture site. No other fracture or dislocation. No suspicious bony lesions. Soft tissues: No suspicious soft tissue densities. IMPRESSION: Acute minimally displaced oblique fracture through fourth proximal phalangeal shaft. No discrepancies. Reviewed by: Piotr Short MD on 11/02/2020 8:12 AM PDT Approved by: Piotr Short MD on 11/02/2020 8:12 AM PDT Station ID: [id number]
== END 2020-11-01 23:19 | disposition home or self-care (01) ==
LOC: EDUNIT# → ED 21:23
DX: S92.514A Nondisplaced fracture of proximal phalanx of right lesser toe(s), initial encounter for closed fracture (principal); S00.03XA Contusion of scalp, initial encounter; W01.0XXA Fall on same level from slipping, tripping and stumbling without subsequent striking against object, initial encounter; Y93.01 Activity, walking, marching and hiking; Y92.009 Unspecified place in unspecified non-institutional (private) residence as the place of occurrence of the external cause; Z86.711 Personal history of pulmonary embolism; Z79.01 Long term (current) use of anticoagulants
CPT/HCPCS: 36415; 70450; 73660; 80053; 83690; 83735; 84703; 85025; 85610; 85730; 93005; 96374; 96375; 99284; A9270; J1170